=== PATIENT | female | born 1965 | race Caucasian/White ===

== ENCOUNTER 2017-06-07 12:13 | Inpatient (IN) | payer OTHER ==
[2017-06-07 12:18] VITALS: BMI 23.1
[2017-06-07] MEDS ORDERED: Sodium Chloride 0.9% 2,000 ML ONE ×2 (12:38→14:17)
--- NOTE | 2017-06-07 12:45 | C.PDOC ---
Time Seen by Provider: 06/07/17 12:30 Chief Complaint (Nursing): Back Pain History Per: Patient History/Exam Limitations: no limitations Onset/Duration Of Symptoms: Hrs (symptoms began last night ) Current Symptoms Are (Timing): Still Present Quality Of Discomfort: "Pain" Associated Symptoms: Fever, Nausea, Urinary Symptoms (urinary urgency ). denies : Vomiting, Diarrhea Recent travel outside of the [place]: Yes (Came from [place] 1 year ago) Additional History Per: Family Past Medical History Reviewed: Historical Data, Nursing Documentation, Vital Signs Vital Signs: Last Vital Signs Temp 102.7 F H 06/07/17 12:18 Pulse 111 H 06/07/17 13:40 Resp 24 06/07/17 13:40 BP 96/54 L 06/07/17 13:40 Pulse Ox 98 06/07/17 13:51 Family History: States: Unknown Family Hx - Social History Hx Alcohol Use: No Hx Substance Use: No - Immunization History Hx Tetanus Toxoid Vaccination: No Hx Influenza Vaccination: No Hx Pneumococcal Vaccination: No Review Of Systems Constitutional: Positive for: Fever. Negative for: Chills Cardiovascular: Negative for: Chest Pain, Palpitations Respiratory: Negative for: Cough, Shortness of Breath Gastrointestinal: Positive for: Nausea, Other (left flank pain ). Negative for : Vomiting, Diarrhea ED Course And Treatment - Laboratory Results Result Diagrams: 06/07/17 12:52 06/07/17 12:52 O2 Sat by Pulse Oximetry: 98 (room air ) Progress - Re-Evaluation Re-evaluation Note: 06/07/17 13:31 CODE SEPSIS ACTIVATED - Data Reviewed Data Reviewed: Lab, Diagnostic imaging, EKG, Old records - Critical Care Citical Care: Excluding Proc Time Critical Care Time: 120 minutes - Continuity of Care Discussed patient case with:: Patient Disposition - Disposition Forms: [employer] (S[place]i) - Scribe Statement The provider has reviewed the documentation as recorded by the Scribe Marika Mccullough All medical record entries made by the Scribe were at my direction and personally dictated by me. I have reviewed the chart and agree that the record accurately reflects my personal performance of the history, physical exam, medical decision making, and the department course for this patient. I have also personally directed, reviewed, and agree with the discharge instructions and disposition.
[2017-06-07 12:48] LABS: VENOUS BLOOD GAS BASE EXCESS -1.4 mmol/L (0.0-2.0); VENOUS BLOOD GAS PCO2 36 mmHg (40-60); VENOUS BLOOD PH 7.41 (7.32-7.43)
[2017-06-07 12:56] LABS: BASO % 0.4 % (0.0-2.0); EOS # 0.1 K/uL (0.0-0.7); HEMATOCRIT 32.6 % (34.0-47.0); LYMPH # 0.4 K/uL (1.0-4.3); LYMPH % 8.7 % (20.0-40.0); MEAN CELL VOLUME 80.1 fL (81.0-99.0); MEAN CORPUSCULAR HEMOGLOBIN 26.3 pg (27.0-31.0); MEAN CORPUSCULAR HGB CONC 32.8 g/dL (33.0-37.0); MEAN PLATELET VOLUME 7.7 fL (7.2-11.7); MONO % 0.7 % (0.0-10.0); PLATELET COUNT 246 K/uL (130-400); RED CELL DISTRIBUTION WIDTH 19.5 % (11.5-14.5)
[2017-06-07 13:06] LABS: INR 1.1
[2017-06-07 13:08] LABS: ALB/GLOB RATIO 1.1 (1.0-2.1); ALKALINE PHOSPHATASE 90 U/L (38-126); ALT/SGPT 42 U/L (9-52); AST/SGOT 28 U/L (14-36); BILIRUBIN,TOTAL 0.5 mg/dL (0.2-1.3); BLOOD UREA NITROGEN 12 mg/dL (7-17); CALCIUM 9.7 mg/dl (8.6-10.4); CARBON DIOXIDE 21 mmol/L (22-30); CHLORIDE 100 mmol/L (98-107); GFR AFRICAN-AMERICAN > 60; GLUCOSE,RANDOM 99 mg/dL (65-105); MAGNESIUM 1.2 mg/dL (1.6-2.3); PHOSPHOROUS 1.3 mg/dL (2.5-4.5); POTASSIUM 3.8 mmol/L (3.6-5.2); SODIUM 136 mmol/L (132-148); TOTAL PROTEIN 7.3 g/dL (6.3-8.3)
--- NOTE | 2017-06-07 13:09 | RAD ---
HISTORY: FEVER COMPARISON: No prior. FINDINGS: LUNGS: No active pulmonary disease. PLEURA: No significant pleural effusion identified, no pneumothorax apparent. CARDIOVASCULAR: Normal. OSSEOUS STRUCTURES: Minor degenerative changes both acromioclavicular joints. Minor multilevel degenerative spondylosis of the thoracic spine. VISUALIZED UPPER ABDOMEN: Normal. OTHER FINDINGS: None. IMPRESSION: No active disease.
[2017-06-07 13:13] LABS: RBC URINE 9 /hpf (0-3); URINE BACTERIA RARE (<OCC); URINE BILIRUBIN NEGATIVE (NEGATIVE); URINE BLOOD 2+ (NEGATIVE); URINE COLOR Yellow (YELLOW); URINE GLUCOSE (UA) NORMAL (Normal); URINE KETONE NEGATIVE (NEGATIVE); URINE LEUKOCYTE ESTERASE 3+ Leu/uL (Negative); URINE PROTEIN NEGATIVE (NEGATIVE); URINE UROBILINOGEN NORMAL mg/dL (0.2-1.0); WBC URINE 112 /hpf (0-5)
[2017-06-07 13:28] LABS: EOSINOPHIL 2 % (0-4); NEUTROPHIL 70 % (50-75); TOTAL CELLS COUNTED 100
[2017-06-07] MEDS ORDERED: cefTRIAXone IV 1 gm in Dextros 50 ML IVPB STA (13:29)
[2017-06-07] MEDS ORDERED: cefTRIAXone IV 1 gm in Dextros 50 ML IVPB ONE ×2 (13:36→19:32)
--- NOTE | 2017-06-07 14:05 | C.PDOC ---
History Of Present Illness 52 year old female presents to the ED with complaints of left flank pain, nausea , fever, urinary urgency beginning last night. Patient denies vomiting or diarrhea. Time Seen by Provider: 06/07/17 12:30 Chief Complaint (Nursing): Back Pain History Per: Patient History/Exam Limitations: no limitations Onset/Duration Of Symptoms: Hrs (symptoms began last night ) Current Symptoms Are (Timing): Still Present Quality Of Discomfort: "Pain" Associated Symptoms: Fever, Nausea, Urinary Symptoms (urinary urgency ). denies : Chills, Vomiting Past Medical History Reviewed: Historical Data, Nursing Documentation, Vital Signs Vital Signs: Last Vital Signs Temp 98.1 F 06/07/17 16:51 Pulse 111 H 06/07/17 17:41 Resp 22 06/07/17 17:41 BP 80/42 L 06/07/17 17:41 Pulse Ox 96 06/07/17 18:00 Family History: States: Unknown Family Hx - Social History Hx Alcohol Use: No Hx Substance Use: No - Immunization History Hx Tetanus Toxoid Vaccination: No Hx Influenza Vaccination: No Hx Pneumococcal Vaccination: No Review Of Systems Constitutional: Positive for: Fever. Negative for: Chills Cardiovascular: Negative for: Chest Pain, Palpitations Respiratory: Negative for: Cough, Shortness of Breath Gastrointestinal: Positive for: Nausea, Other (left flank pain ). Negative for : Vomiting, Abdominal Pain, Diarrhea Genitourinary: Positive for: Other (urinary urgency ). Negative for: Hematuria Physical Exam - Physical Exam Appears: Non-toxic, In Acute Distress (patient appears to be in moderate pain ) Skin: Warm, Dry Head: Atraumatic Eye(s): bilateral: Normal Inspection Oral Mucosa: Moist Neck: Supple Chest: Symmetrical, No Deformity Cardiovascular: No Murmur, Other (patient is tachycardic ) Respiratory: Normal Breath Sounds, No Rales, No Rhonchi, No Wheezing Gastrointestinal/Abdominal: Soft, No Tenderness, No Distention, No Guarding, No Rebound Back: CVA Tenderness (left CVA tenderness ) ED Course And Treatment - Laboratory Results Result Diagrams: 06/07/17 12:52 06/07/17 12:52 ECG: Interpreted By Me, Viewed By Me ECG Rhythm: Sinus Tachycardia O2 Sat by Pulse Oximetry: 96 (room air ) - CT Scan/US Abdomen and Pelvis CT with contrast Other Rad Studies (CT/US): Read By Radiologist, Radiology Report Reviewed CT/US Interpretation: FINDINGS: LOWER THORAX: No visible consolidation, pleural effusion, or pneumothorax. LIVER: Hypoattenuation of the liver compatible with hepatic steatosis. GALLBLADDER AND BILE DUCTS: Mild gallbladder wall thickening/pericholecystic edema. No calcified gallstones evident. PANCREAS: Unremarkable unenhanced appearance. Small fluid adjacent to the pancreatic tail likely perinephric rather then due to pancreatic pathology. Recommend correlation with amylase and lipase. SPLEEN: Unremarkable unenhanced appearance. ADRENALS: Unremarkable unenhanced appearance. KIDNEYS AND URETERS: 4 mm calcification at the distal left ureter at the level of the UVJ with moderate proximal hydroureter nephrosis. Left perinephric fluid/stranding. No hydronephrosis or obstructing calculus on the right. 8 mm too small to characterize right renal hypodensity; statistically likely a cyst. VASCULATURE: No aortic aneurysm. BOWEL: Stomach is nondistended. Lack of oral contrast limits evaluation for bowel pathology. Bowel loops appear within normal limits of caliber without evidence of obstruction. Diverticulosis without CT evidence of acute diverticulitis. APPENDIX: The appendix appears within normal limits of caliber. No secondary signs of acute appendicitis. PERITONEUM: No significant free fluid. No definite free air. LYMPH NODES: No bulky adenopathy identified. BLADDER: Unremarkable. REPRODUCTIVE: The uterus is present. BONES: No acute osseous abnormality is detected. . OTHER FINDINGS: None. IMPRESSION: 4 mm calcification at the distal left ureter at the level of the UVJ with moderate proximal hydroureter nephrosis. Left perinephric fluid/stranding. Small fluid adjacent to the pancreatic tail likely perinephric rather then due to pancreatic pathology. Recommend correlation with amylase and lipase. Mild gallbladder wall thickening/pericholecystic edema. No calcified gallstones evident. Right upper quadrant ultrasound may be considered if indicated. Hepatic steatosis. Diverticulosis without CT evidence of acute diverticulitis. Additional findings as above. Progress Note: VBG, EKG, UA, and blood work were ordered. Patient was give Tylenol, Toradol, Zofran, cefTRIAXone, and IV fluids. Critical Care Time - Critical Care Note Total Time (in mins): 120 (Excluding Proc Time ) Documented critical care: time excludes all time spent performing seperately billable procedures. Progress - Re-Evaluation Re-evaluation Note: 06/07/17 13:31 CODE SEPSIS ACTIVATED 06/07/17 14:12 Persistent Tachycardia, but improved from prior. Appears comfortable, pending CT. 06/07/17 16:33 REPEAT LACTATE IMPROVED. VSS PT APPEARS COMFORTABLE d/w dr Nalini [facility]ST[facility] WILL ADMIT. REQUESTING CONSULT DR Harman CLAYTON D/W DR Harman CLAYTON WILL CONSULT 06/07/17 16:57 NOTIFIED BY RN PT W HYPOTENSION. NOTED TO BE DIAPHORETIC. FS 87. SINUS TACH. S/P EVAL POSSIBLE STENT TONIGHT? REQUESTS UPDATE IN 1.5 HRS. START GENTAMYCIN 80 MG 06/07/17 17:[address] PAULINO 06/07/17 18:11 PERSIST HYPOTENSION, DR CLAYTON NOTIFIED. TO O.RDebby HENDRICKSON - Data Reviewed Data Reviewed: Lab, Diagnostic imaging, EKG, Old records - Critical Care Citical Care: Excluding Proc Time Critical Care Time: 90 minutes - Continuity of Care Discussed patient case with:: Patient, On-call PMD-pt unassigned Discussed pt. case with science consultant/specialty: Urology Disposition Counseled Patient/Family Regarding: Studies Performed, Diagnosis - Disposition Disposition: HOSPITALIZED Disposition Time: 16:35 Condition: STABLE - POA Present On Arrival: None - Clinical Impression Clinical Impression: Pyelonephritis, Ureterolithiasis - Scribe Statement The provider has reviewed the documentation as recorded by the Scribe Marika Mccullough All medical record entries made by the Rejiibe were at my direction and personally dictated by me. I have reviewed the chart and agree that the record accurately reflects my personal performance of the history, physical exam, medical decision making, and the department course for this patient. I have also personally directed, reviewed, and agree with the discharge instructions and disposition. Decision To Admit - Pt Status Changed To: Hospital Disposition Of: Inpatient - Admit Certification Admit to Inpatient:: After my assessment, the patient will require hospitalization for at least two midnights. This is because of the severity of symptoms shown, intensity of services needed, and/or the medical risk in this patient being treated as an outpatient. - InPatient: Physician Admission Certification: I certify that this patient requires 2 or more midnights of care for the following reason:: SEE NOTE - . Bed Request Type: ICU Admitting Physician: Moose Livingston Patient Diagnosis: Pyelonephritis, Ureterolithiasis
[2017-06-07] MEDS ORDERED: Iodixanol 320 MG/ML 100 ML BOTTLE IV ONE (14:52)
[2017-06-07 15:48] LABS: VENOUS BLOOD GAS BASE EXCESS -6.4 mmol/L (0.0-2.0); VENOUS BLOOD GAS PCO2 37 mmHg (40-60); VENOUS BLOOD PH 7.32 (7.32-7.43)
--- NOTE | 2017-06-07 16:27 | CT ---
PROCEDURE: CT Abdomen and Pelvis with contrast HISTORY: L FLANK PAIN, FEVER COMPARISON: None available. TECHNIQUE: Contrast dose: 100 cc Visipaque 320 Radiation dose: Total exam DLP = 468.32 MGy-cm. This CT exam was performed using one or more of the following dose reduction techniques: Automated exposure control, adjustment of the mA and/or kV according to patient size, and/or use of iterative reconstruction technique. FINDINGS: LOWER THORAX: No visible consolidation, pleural effusion, or pneumothorax. LIVER: Hypoattenuation of the liver compatible with hepatic steatosis. GALLBLADDER AND BILE DUCTS: Mild gallbladder wall thickening/pericholecystic edema. No calcified gallstones evident. PANCREAS: Unremarkable unenhanced appearance. Small fluid adjacent to the pancreatic tail likely perinephric rather then due to pancreatic pathology. Recommend correlation with amylase and lipase. SPLEEN: Unremarkable unenhanced appearance. ADRENALS: Unremarkable unenhanced appearance. KIDNEYS AND URETERS: 4 mm calcification at the distal left ureter at the level of the UVJ with moderate proximal hydroureter nephrosis. Left perinephric fluid/stranding. No hydronephrosis or obstructing calculus on the right. 8 mm too small to characterize right renal hypodensity; statistically likely a cyst. VASCULATURE: No aortic aneurysm. BOWEL: Stomach is nondistended. Lack of oral contrast limits evaluation for bowel pathology. Bowel loops appear within normal limits of caliber without evidence of obstruction. Diverticulosis without CT evidence of acute diverticulitis. APPENDIX: The appendix appears within normal limits of caliber. No secondary signs of acute appendicitis. PERITONEUM: No significant free fluid. No definite free air. LYMPH NODES: No bulky adenopathy identified. BLADDER: Unremarkable. REPRODUCTIVE: The uterus is present. BONES: No acute osseous abnormality is detected. . OTHER FINDINGS: None. IMPRESSION: 4 mm calcification at the distal left ureter at the level of the UVJ with moderate proximal hydroureter nephrosis. Left perinephric fluid/stranding. Small fluid adjacent to the pancreatic tail likely perinephric rather then due to pancreatic pathology. Recommend correlation with amylase and lipase. Mild gallbladder wall thickening/pericholecystic edema. No calcified gallstones evident. Right upper quadrant ultrasound may be considered if indicated. Hepatic steatosis. Diverticulosis without CT evidence of acute diverticulitis. Additional findings as above.
[2017-06-07] MEDS ORDERED: Sodium Chloride 0.9% 1,000 ML IV ONE (16:45)
[2017-06-07] MEDS ORDERED: Sodium Chloride 0.9% 1,000 ML ONE (17:15)
[2017-06-07 17:54] LABS: VENOUS BLOOD GAS BASE EXCESS -7.7 mmol/L (0.0-2.0); VENOUS BLOOD GAS PCO2 34 mmHg (40-60); VENOUS BLOOD PH 7.32 (7.32-7.43)
[2017-06-07] MEDS ORDERED: Magnesium Sulfate 1 gm in D5W 1 GM/100 ML BAG IVPB ONE ×3 (18:24→20:58)
[2017-06-07] MEDS ORDERED: DOPamine 400mg/250ml D5W 400 MG/250 ML BAG IV ONE (18:32)
[2017-06-07] MEDS: DOPamine 400mg/250ml D5W 400 MG/250 ML BAG IV PRN (18:39)
[2017-06-07 18:40] LABS: AMYLASE 48 U/L (30-110)
--- NOTE | 2017-06-07 19:26 | CP.PCM.CON ---
History of Present Illness - History of Present Illness History of Present Illness: Attending: Moose Livingston MD Reason for Consult: Critical care Management: Chief complaint: Left flank pain The patient was seen and examined in the ICU before being taken to the OR HPI: 52 years old female with no significant past medical hx who comes with one day of sudden unset of Severe, Pulsating, continuous left flank pain, radiating anteriorly and to the left groin, Increasing in intensity with movement and only with mild decrease in intensity in the ED after medication. The pain was associated with dysuria, urinary urgency incontinence, nausea, Chills and subjective fever with mild frontal headache. No vomiting, diarrhea, SOB, Chest Pain PMH: No Chronic Diseases PSH: Denies SH: Denies Smoking Cigarettres, No Alcohol, No illegal drug use; Live with family FH: No hereditary diseases Allergies: NKDA Medication: Denies Review of Systems - Constitutional Constitutional: Chills, Fever, Headache. absent: Anorexia, Fatigue, Lethargy - EENT Eyes: Requires Corrective Lenses. absent: Diplopia, Floaters, Photophobia, Sees Flashes Ears: absent: Decreased Hearing, Ear Discharge, Ear Pain, Tinnitus Nose/Mouth/Throat: absent: Epistaxis, Nasal Congestion, Nasal Discharge, Sinus Pain, Sinus Pressure - Cardiovascular Cardiovascular: absent: Chest Pain, Dyspnea, Edema, Lightheadedness, Palpitations - Respiratory Respiratory: absent: Cough, Dyspnea, Wheezing, Stridor, Chest Congestion - Gastrointestinal Gastrointestinal: Nausea. absent: Constipation, Diarrhea, Vomiting Additional comments: Pain to the LLQ - Genitourinary Genitourinary: Dysuria, Flank Pain, Urinary Urgency. absent: Hematuria, Pyuria , Urinary Frequency - Musculoskeletal Musculoskeletal: Arthralgias, Back Pain. absent: Muscle Weakness, Numbness Additional comments: Right lower extremity pain - Integumentary Integumentary: absent: Pruritus, Rash, Skin Ulcer, Sores, Striae, Swelling - Neurological Neurological: Headaches. absent: Confusion, Dizziness, Focal Weakness, Paresthesias, Weakness - Psychiatric Psychiatric: absent: Anxiety, Depression, Panic Attacks - Endocrine Endocrine: absent: Palpitations, Polydipsia, Polyphagia, Polyuria - Hematologic/Lymphatic Hematologic: absent: Easy Bleeding, Easy Bruising Past Patient History - Past Medical History & Family History Past Medical History?: No - Past Social History Smoking Status: Never Smoked Chewing Tobacco Use: No Cigar Use: No Alcohol: None Drugs: Denies Home Situation {Lives}: With Family - CARDIAC Hx Cardiac Disorders: No - PULMONARY Hx Respiratory Disorders: No - NEUROLOGICAL Hx Neurological Disorder: No - HEENT Hx HEENT Problems: No - RENAL Hx Chronic Kidney Disease: No - ENDOCRINE/METABOLIC Hx Endocrine Disorders: No - HEMATOLOGICAL/ONCOLOGICAL Hx Blood Disorders: No - INTEGUMENTARY Hx Dermatological Problems: No - MUSCULOSKELETAL/RHEUMATOLOGICAL Hx Musculoskeletal Disorders: No - GASTROINTESTINAL Hx Gastrointestinal Disorders: No - GENITOURINARY/GYNECOLOGICAL Hx Genitourinary Disorders: No - PSYCHIATRIC Hx Psychophysiologic Disorder: No Hx Substance Use: No - SURGICAL HISTORY Hx Surgeries: No Other/Comment: PT DENIES - ANESTHESIA Hx Anesthesia: No Meds Allergies/Adverse Reactions: Allergies Allergy/AdvReac Type Severity Reaction Status Date / Time No Known Allergies Allergy Verified 06/07/17 12:17 - Medications Medications: Current Medications Dopamine HCl/Dextrose (Dopamine 400mg/250ml D5w) 400 mg in 250 mls @ 10.313 mls /hr IV .Q24H PRN; Protocol; 5 MCG/KG/MIN PRN Reason: TITRATE PER MD ORDER Last Admin: 06/07/17 18:39 Dose: 5 mcg/kg/min, 10.313 mls/hr Physical Exam - Constitutional Appears: No Acute Distress - Head Exam Head Exam: ATRAUMATIC, NORMAL INSPECTION, NORMOCEPHALIC - Eye Exam Eye Exam: EOMI, Normal appearance Pupil Exam: NORMAL ACCOMODATION, PERRL - ENT Exam ENT Exam: Mucous Membranes Moist, Normal Exam, Normal External Ear Exam, Normal Oropharynx Additional comments: Upper and lower dentures. Mucous membrane pale. - Neck Exam Neck exam: Positive for: Full Rom, Normal Inspection. Negative for: Lymphadenopathy, Tenderness - Respiratory Exam Respiratory Exam: Clear to Auscultation Bilateral, NORMAL BREATHING PATTERN. absent: Rales, Rhonchi, Wheezes - Cardiovascular Exam Cardiovascular Exam: REGULAR RHYTHM, RRR. absent: Gallop, JVD - GI/Abdominal Exam GI & Abdominal Exam: Normal Bowel Sounds, Soft. absent: Mass, Organomegaly Additional comments: Pain to the LLQ on palpation, no guarding, no rebound. - Rectal Exam Rectal Exam: Deferred - Extremities Exam Extremities exam: Positive for: full ROM, normal inspection. Negative for: calf tenderness, joint swelling, pedal edema - Back Exam Back exam: CVA tenderness (L), NORMAL INSPECTION. absent: CVA tenderness (R) - Neurological Exam Neurological exam: Alert, CN II-XII Intact, Oriented x3, Reflexes Normal - Psychiatric Exam Psychiatric exam: Normal Affect, Normal Mood - Skin Skin Exam: Dry, Intact, Normal Color, Warm Results - Vital Signs Recent Vital Signs: Last Vital Signs Temp 98 F 06/07/17 18:18 Pulse 118 H 06/07/17 18:47 Resp 22 06/07/17 18:47 BP 90/51 L 06/07/17 18:47 Pulse Ox 97 06/07/17 18:47 - Labs Result Diagrams: 06/07/17 12:52 06/07/17 12:52 Labs: Laboratory Results - last 24 hr 06/07/17 06/07/17 06/07/17 16:48 17:45 18:28 pO2 52 VBG pH 7.32 VBG pCO2 34 L VBG HCO3 18.5 VBG Total CO2 18.5 L VBG O2 Sat (Calc) 89.2 H VBG Base Excess -7.7 L VBG Potassium 2.9 L Sodium 143.0 Chloride 113.0 H Glucose 86 Lactate 1.7 POC Glucose (mg/dL) 87 Amylase Lipase Venous Blood Potassium 2.9 L Blood Type O POSITIVE Antibody Screen Negative 06/07/17 18:31 pO2 VBG pH VBG pCO2 VBG HCO3 VBG Total CO2 VBG O2 Sat (Calc) VBG Base Excess VBG Potassium Sodium Chloride Glucose Lactate POC Glucose (mg/dL) Amylase 48 Lipase 45 Venous Blood Potassium Blood Type Antibody Screen - Imaging and Cardiology CT scan - abdomen Status: Report reviewed by me Additional comment: FINDINGS: LOWER THORAX: No visible consolidation, pleural effusion, or pneumothorax. LIVER: Hypoattenuation of the liver compatible with hepatic steatosis. GALLBLADDER AND BILE DUCTS: Mild gallbladder wall thickening/pericholecystic edema. No calcified gallstones evident. PANCREAS: Unremarkable unenhanced appearance. Small fluid adjacent to the pancreatic tail likely perinephric rather then due to pancreatic pathology. Recommend correlation with amylase and lipase. SPLEEN: Unremarkable unenhanced appearance. ADRENALS: Unremarkable unenhanced appearance. KIDNEYS AND URETERS: 4 mm calcification at the distal left ureter at the level of the UVJ with moderate proximal hydroureter nephrosis. Left perinephric fluid/stranding. No hydronephrosis or obstructing calculus on the right. 8 mm too small to characterize right renal hypodensity; statistically likely a cyst. VASCULATURE: No aortic aneurysm. BOWEL: Stomach is nondistended. Lack of oral contrast limits evaluation for bowel pathology. Bowel loops appear within normal limits of caliber without evidence of obstruction. Diverticulosis without CT evidence of acute diverticulitis. APPENDIX: The appendix appears within normal limits of caliber. No secondary signs of acute appendicitis. PERITONEUM: No significant free fluid. No definite free air. LYMPH NODES: No bulky adenopathy identified. BLADDER: Unremarkable. REPRODUCTIVE: The uterus is present. BONES: No acute osseous abnormality is detected. . OTHER FINDINGS: None. IMPRESSION: 4 mm calcification at the distal left ureter at the level of the UVJ with moderate proximal hydroureter nephrosis. Left perinephric fluid/ stranding. Small fluid adjacent to the pancreatic tail likely perinephric rather then due to pancreatic pathology. Recommend correlation with amylase and lipase. Mild gallbladder wall thickening/pericholecystic edema. No calcified gallstones evident. Right upper quadrant ultrasound may be considered if indicated. Hepatic steatosis. Diverticulosis without CT evidence of acute diverticulitis. Additional findings as above. Chest x-ray Status: Image reviewed by me, Report reviewed by me Additional comment: No infiltrates Assessment & Plan - Assessment and Plan (Free Text) Assessment: #. Pyelonephritis #. Ureterolithiasis #. Septic Shock #. Anemia #. Leukopenia Plan: 52 years old female with no significant past medical hx who comes with one day of sudden unset of Severe, Pulsating, continuous left flank pain, radiating anteriorly and to the left groin, associated with dysuria, urinary urgency incontinence, nausea, Chills and subjective fever. #. Pyelonephritis - Consult Dr Marino ID - Rocephin and Gentamicin given in ED. Patient continued on Meropenem - IV Fluids - Pain management - Follow blood culture - Follow Urine culture #. Ureterolithiasis with Hydroureter - Consult Urology Dr. Hines - Pain management #.Septic Shock - ID on consult - Patient received 4.5 liters of NS in the ED - Continue IV Fluid 150mls/hr - Continue Antibiotics - Dopamine IV Titrate to MAP >65 #. Anemia - Iron Panel - Follow HB #. Electrolyte Imbalance with Hypomagnesemia and Hypophosphatemia - Magnesium given - Potassium Phosphate IVPB - Follow Magnesium and Phosphorus levels #. Stress ulcer Prophylaxis with Pantoprazole #.DVT Prophylaxis with SCD - Date & Time Date: 06/07/17 Time: 19:26
--- NOTE | 2017-06-07 19:30 | CP.PCM.HP ---
History of Present Illness - History of Present Illness History of Present Illness: CC: abdominal pain with fevers HPI: 52 year old female with past medical history significant for nephrolithiasis presents with complaints of fevers and suprapubic tenderness which started approximately 6:45 AM this morning. Patient states that her symptoms were not getting better and thus she came in to seek further care. She did not attempt anything for relief. She states that movements exacerbated her symptoms. At this time, she admits to fevers, nausea, suprapubic and flank pain. She denies vomiting, chest pain, palpitations or dyspnea at this time. PMHx- Nephrolithiasis 15 years prior which resolved on its own PSHx- deneis Fam Hx- Grandmother had a history of UTI Meds- Unsure whether patient takes vitamins or supplements but otherwise denies taking medications Social Hx- denies Allergies- NKDA PMD- Does not follow with a medical doctor; patient recently emigrated from [facility] one year prior. In the ED: UA positive for UTI. Code Sepsis called for Fever, Tachycardia. Later , patient's blood pressure became more hypotensive despite multiple fluid boluses. Cultures were drawn. Patient was administered Ceftriaxone and Gentamicin in the ED. Patient's temperature resolved, however patient remained hypotensive and tachycardic. ICU eval warranted and patient was admitted for critical care monitoring. Present on Admission - Present on Admission Any Indicators Present on Admission: No Review of Systems - Review of Systems Systems not reviewed;Unavailable: Unstable Vital Signs, Language Barrier - Constitutional Constitutional: Fever - EENT Eyes: absent: Blurred Vision, Change in Vision Ears: absent: Decreased Hearing, Ear Discharge Nose/Mouth/Throat: absent: Nasal Discharge - Cardiovascular Cardiovascular: absent: Chest Pain, Chest Pain at Rest - Respiratory Respiratory: absent: Dyspnea, Dyspnea on Exertion - Gastrointestinal Gastrointestinal: Abdominal Pain, Nausea. absent: Loose Stools, Vomiting - Genitourinary Genitourinary: Dysuria, Flank Pain, Urinary Urgency. absent: Hematuria - Musculoskeletal Musculoskeletal: Back Pain - Integumentary Integumentary: absent: Change in Hair, Wounds - Neurological Neurological: absent: Abnormal Gait, Abnormal Hearing - Psychiatric Psychiatric: absent: Anxiety, Behavioral Changes - Hematologic/Lymphatic Hematologic: absent: Easy Bleeding, Easy Bruising Past Patient History - Past Social History Smoking Status: Never Smoked Alcohol: None Drugs: Denies Home Situation {Lives}: With Family - PSYCHIATRIC Hx Substance Use: No - SURGICAL HISTORY Hx Surgeries: No Other/Comment: PT DENIES - ANESTHESIA Hx Anesthesia: No Meds Allergies/Adverse Reactions: Allergies Allergy/AdvReac Type Severity Reaction Status Date / Time No Known Allergies Allergy Verified 06/07/17 12:17 Physical Exam - Constitutional Additional comments: clinically ill appearing, cool extremities - Head Exam Head Exam: ATRAUMATIC, NORMAL INSPECTION, NORMOCEPHALIC - Eye Exam Eye Exam: EOMI, Normal appearance, PERRL - ENT Exam ENT Exam: Mucous Membranes Moist - Neck Exam Neck exam: Positive for: Full Rom - Respiratory Exam Respiratory Exam: NORMAL BREATHING PATTERN. absent: Wheezes - Cardiovascular Exam Cardiovascular Exam: +S1, +S2. absent: Systolic Murmur - GI/Abdominal Exam GI & Abdominal Exam: Normal Bowel Sounds, Soft, Tenderness (suprapubic). absent : Distended, Firm, Guarding - Extremities Exam Extremities exam: Positive for: full ROM, normal capillary refill, pedal pulses present. Negative for: pedal edema, tenderness - Back Exam Back exam: CVA tenderness (L), CVA tenderness (R) (Right CVA tenderness greater than left), FULL ROM - Neurological Exam Neurological exam: Alert, Oriented x3 - Psychiatric Exam Psychiatric exam: Normal Affect, Normal Mood - Skin Skin Exam: Dry, Pallor, Warm (warm abdomen, cool extremities) Results - Vital Signs Recent Vital Signs: Last Vital Signs Temp 98 F 06/07/17 18:18 Pulse 118 H 06/07/17 18:47 Resp 22 06/07/17 18:47 BP 90/51 L 06/07/17 18:47 Pulse Ox 97 06/07/17 18:47 - Labs Result Diagrams: 06/07/17 12:52 06/07/17 12:52 Labs: Laboratory Results - last 24 hr 06/07/17 06/07/17 06/07/17 16:48 17:45 18:28 pO2 52 VBG pH 7.32 VBG pCO2 34 L VBG HCO3 18.5 VBG Total CO2 18.5 L VBG O2 Sat (Calc) 89.2 H VBG Base Excess -7.7 L VBG Potassium 2.9 L Sodium 143.0 Chloride 113.0 H Glucose 86 Lactate 1.7 POC Glucose (mg/dL) 87 Amylase Lipase Venous Blood Potassium 2.9 L Blood Type O POSITIVE Antibody Screen Negative 06/07/17 18:31 pO2 VBG pH VBG pCO2 VBG HCO3 VBG Total CO2 VBG O2 Sat (Calc) VBG Base Excess VBG Potassium Sodium Chloride Glucose Lactate POC Glucose (mg/dL) Amylase 48 Lipase 45 Venous Blood Potassium Blood Type Antibody Screen Assessment & Plan - Assessment and Plan (Free Text) Assessment: Septic Shock secondary to UTI/Pyelonephritis Patient with initial fever of 102.8, tachycardic, hypotensive not responding to fluids despite nearly 5 L bolus. Last BP check at 18:00 with systolic in the low 80s. Admit to ICU for critical care monitoring in light of persistently low blood pressures. Consult to ID Dr. Marino- Recommendations to begin Meropenem ( stat dose now and then Q8H afterwards) Will begin Vancomcyin afterwards. Check vanc troughs once started. F/U ID recommendations UA positive for UTI F/U Blood and urine cultures F/U CBC, CMP, Mag, Phos, Thyroid levels Left Ureter Nephrolithiasis F/U CT results noted: 4 mm calcification at the distal left ureter at the level of the UVJ with moderate proximal hydroureter nephrosis. Left perinephric fluid/ stranding. No hydronephrosis or obstructing calculus on the right. 8 mm too small to characterize right renal hypodensity; statistically likely a cyst. Consult to Dr. Elly Hines F/U recommendations Gall Bladder Wall thickening F/U RUQ U/S Fluid around Pancreatic tail noted on CT imaging Liapse and Amylase order with results within normal limits. These findings may be perinephric rather then due to pancreatic pathology Questionable 8 mm renal cyst F/U renal U/S at 6 months time This should be relayed to patient upon discharge as well for follow up care. Electrolyte imbalance Low magnesium and low phosphorus Repleted Cont to monitor May be due to septic shock presentation Prophylactic Measure PPI 40 mg PO daily Heparin SC 5,000 units Q12 SCDs
--- NOTE | 2017-06-07 19:40 | PCM.SEPTIC ---
Sepsis Progress Note - Reassessment Type Date of Evaluation: 06/07/17 Time of Evaluation: 19:30 Reassessment Type: Non-invasive reassessment - Non Invasive Reassessment Were the most recent vital sign reviewed: Yes Vital Sign (Latest): Temp Pulse Resp BP Pulse Ox 98 F 118 H 22 90/51 L 97 06/07/17 18:18 06/07/17 18:47 06/07/17 18:47 06/07/17 18:47 06/07/17 18:47 Cardiovascular: Yes: Chest Non Tender, Tachycardia. No: Regular Rate, Rhythm, Edema, Gallop, JVD, Murmur, Bradycardia, Ectopy, Friction Rub, Irregularly Irregular Respiratory: Yes: Normal Breath Sounds. No: Accessory Muscle Use, Crackles, Rales, Rhonchi, Stridor, Wheezing, Respiratory Distress Capillary Refill: Normal (Less than 2 sec) Pulses: Normal Radial, Normal Dorsalis Pedis, Normal Posterior Tibialis Skin: Normal Color, Warm, Dry, Pale - Invasive Reassessment (complete 2 of 4) Was a Central Venous Pressure Measurement obtained within 6 Hours after the presentation of septic shock: No Was a central venous oxygen measurement obtained within 6 hours after the presentation of septic shock: No Was a bedside cardiovascular ultrasound performed within 6 hours after the presentation of septic shock: No Was a passive leg raise performed or was a fluid challenge performed within 6 hrs of the initial fluid bolus: Yes Fluid Challenge performed: Yes
[2017-06-07] MEDS: Iohexol 240 (50 ml) ONE ×2 (19:45→20:18)
[2017-06-07] MEDS ORDERED: Lactated Ringer's 1,000 ML IV ONE (19:55)
[2017-06-07] MEDS ORDERED: Ketamine 50 mg/ml Inj (10 ml) ONE (19:55)
[2017-06-07] MEDS ORDERED: Midazolam 2 MG/2 ML VIAL ONE (19:56)
[2017-06-07] MEDS ORDERED: Propofol 10 mg/ml Inj (20 ML) ONE (20:11)
[2017-06-07] MEDS: Meropenem 1 GM in Sodium Chloride 0.9% 100 ML IVPB SCH (20:45)
[2017-06-07] MEDS ORDERED: Potassium Phosphate 15 MMOLE in Sodium Chloride 0.9% 250 ML IVPB ONE (21:00)
[2017-06-07] MEDS: Sodium Chloride 0.9% 1,000 ML IV SCH (21:17)
--- NOTE | 2017-06-07 23:27 | US ---
EXAM: US Abdomen Complete CLINICAL HISTORY: 52 years old, female; Abnormal findings; Abnormal radiologic finding of the abdomen; Radiologic exam and body structure: CT; Prior surgery; Surgery date: Post-operative (0-2 days); Surgery type: Renal stent; Additional info: Mild gb wall thickening with pericholecystic edema TECHNIQUE: Real-time ultrasound of the abdomen (complete) with image documentation. COMPARISON: No relevant prior studies available. FINDINGS: Liver: Increased echogenicity within the liver, which measures 16.2 cm in longitudinal dimension. No intrahepatic bile duct dilation. Gallbladder: No acute findings. No gallstones. Common bile duct: No stones. No dilation, measuring 3.8 mm. Pancreas: Visualization of the pancreas is limited by overlying bowel gas. Right kidney: No acute findings. No hydronephrosis. Subcentimeter anechoic focus within the upper to mid pole of the right kidney, statistically a cyst. Left Kidney: Unremarkable in echogenicity and size measuring 12.5 x 6.2 x 5.9 cm. Fullness of the left renal pelvis is detected, without jessica hydronephrosis. Spleen: Unremarkable in echogenicity and size, measuring 10.6 cm in longitudinal dimension. Aorta: Unremarkable. Inferior vena cava: patent. IMPRESSION: Trace left-sided perinephric fluid. Prominence of the left renal pelvis without jessica hydronephrosis demonstrated on the submitted images. Fatty infiltration of the borderline enlarged liver. Simple subcentimeter cyst within the right kidney. Borderline splenic enlargement. Limited evaluation of the pancreas, secondary to overlying bowel gas. Otherwise, unremarkable sonographic evaluation of the abdomen, as detailed above.
[2017-06-08] MEDS: Meropenem 1 GM in Sodium Chloride 0.9% 100 ML IVPB SCH ×3 (03:05→20:50)
[2017-06-08] MEDS: Sodium Chloride 0.9% 1,000 ML IV SCH ×3 (04:36→19:38)
[2017-06-08 07:23] LABS: CHLORIDE 115 mmol/L (98-107); POTASSIUM 4.2 mmol/L (3.6-5.2); SODIUM 141 mmol/L (132-148)
[2017-06-08 07:25] LABS: ALKALINE PHOSPHATASE 78 U/L (38-126); AST/SGOT 46 U/L (14-36); BILIRUBIN,TOTAL 0.5 mg/dL (0.2-1.3); CARBON DIOXIDE 19 mmol/L (22-30); GFR AFRICAN-AMERICAN > 60; TOTAL PROTEIN 6.1 g/dL (6.3-8.3)
[2017-06-08 07:26] LABS: ALT/SGPT 65 U/L (9-52); BLOOD UREA NITROGEN 9 mg/dL (7-17); CALCIUM 7.8 mg/dl (8.6-10.4); GLUCOSE,RANDOM 107 mg/dL (65-105); MAGNESIUM 1.8 mg/dL (1.6-2.3); PHOSPHOROUS 3.4 mg/dL (2.5-4.5)
[2017-06-08 07:53] LABS: THYROID STIMULATING HORMONE 0.29 mIU/L (0.46-4.68)
[2017-06-08] MEDS: DOPamine 400mg/250ml D5W 400 MG/250 ML BAG IV PRN (08:00)
--- NOTE | 2017-06-08 08:14 | PCM.URO ---
Urology Progress Note - Objective Lab Results Last 24 Hours: Laboratory Results - last 24 hr 06/07/17 06/07/17 06/07/17 16:48 17:45 18:28 pO2 52 VBG pH 7.32 VBG pCO2 34 L VBG HCO3 18.5 VBG Total CO2 18.5 L VBG O2 Sat (Calc) 89.2 H VBG Base Excess -7.7 L VBG Potassium 2.9 L Sodium 143.0 Chloride 113.0 H Glucose 86 Lactate 1.7 Potassium Carbon Dioxide Anion Gap BUN Creatinine Est GFR ( Amer) Est GFR (Non-Af Amer) POC Glucose (mg/dL) 87 Random Glucose Calcium Phosphorus Magnesium Total Bilirubin AST ALT Alkaline Phosphatase Total Protein Albumin Globulin Albumin/Globulin Ratio Amylase Lipase Free T4 TSH 3rd Generation Venous Blood Potassium 2.9 L Blood Type O POSITIVE Antibody Screen Negative 06/07/17 06/08/17 06/08/17 18:31 06:42 06:42 pO2 VBG pH VBG pCO2 VBG HCO3 VBG Total CO2 VBG O2 Sat (Calc) VBG Base Excess VBG Potassium Sodium 141 Chloride 115 H Glucose Lactate Potassium 4.2 Carbon Dioxide 19 L Anion Gap 11 BUN 9 Creatinine 0.7 Est GFR ( Amer) > 60 Est GFR (Non-Af Amer) > 60 POC Glucose (mg/dL) Random Glucose 107 H Calcium 7.8 L Phosphorus 3.4 Magnesium 1.8 Total Bilirubin 0.5 AST 46 H D ALT 65 H D Alkaline Phosphatase 78 Total Protein 6.1 L Albumin 3.1 L Globulin 3.0 Albumin/Globulin Ratio 1.0 Amylase 48 Lipase 45 Free T4 1.14 TSH 3rd Generation 0.29 L Venous Blood Potassium Blood Type Antibody Screen Intake & Output: Intake & Output 06/07/17 06/08/17 06/08/17 18:59 06:59 18:59 Intake Total 1000 2219.9 405 Output Total 2250 75 Balance 1000 -30.1 330 Weight 147 lb 4.3 oz Intake: IV 1000 34 Intake, IV Amount 2185.9 165 RFA 1450 150 Right Antecubital 227.7 15 Right Forearm 508.2 Oral 0 240 Output: Urine 2250 75 Urethral (Moody) 2250 75 Other: Voiding Method Bedpan Vital Signs: Vital Signs - 24 hr 06/07/17 06/07/17 06/07/17 16:51 17:06 17:23 Temperature 98.1 F Pulse Rate 115 H 111 H 108 H Pulse Rate [ Bilateral Radial] Respiratory 20 24 Rate Blood Pressure 78/47 L 79/39 L 81/46 L O2 Sat by Pulse 99 99 98 Oximetry 06/07/17 06/07/17 06/07/17 17:41 18:11 18:18 Temperature 98 F Pulse Rate 111 H 112 H Pulse Rate [ Bilateral Radial] Respiratory 22 22 Rate Blood Pressure 80/42 L 82/45 L O2 Sat by Pulse 97 96 98 Oximetry 06/07/17 06/07/17 06/07/17 18:38 18:39 18:47 Temperature Pulse Rate 113 H 107 H 118 H Pulse Rate [ Bilateral Radial] Respiratory 20 18 22 Rate Blood Pressure 78/46 L 78/45 L 90/51 L O2 Sat by Pulse 98 100 97 Oximetry 06/07/17 06/07/17 06/07/17 19:08 19:21 19:30 Temperature 98 F Pulse Rate 117 H 115 H 115 H Pulse Rate [ Bilateral Radial] Respiratory 32 H 22 32 H Rate Blood Pressure 91/49 L 89/48 L 96/51 L O2 Sat by Pulse 97 96 98 Oximetry 06/07/17 06/07/17 06/07/17 19:34 20:43 20:45 Temperature 97.8 F Pulse Rate 106 H 105 H Pulse Rate [ 106 H Bilateral Radial] Respiratory 27 H 22 Rate Blood Pressure 101/53 L 101/53 L O2 Sat by Pulse 94 L 94 L Oximetry 06/07/17 06/07/17 06/07/17 20:58 21:00 21:03 Temperature Pulse Rate 105 H 105 H 109 H Pulse Rate [ Bilateral Radial] Respiratory 26 H 25 H 28 H Rate Blood Pressure 69/36 L 69/36 L 80/39 L O2 Sat by Pulse 95 95 95 Oximetry 06/07/17 06/07/17 06/07/17 21:12 21:15 21:27 Temperature Pulse Rate 109 H 109 H 108 H Pulse Rate [ Bilateral Radial] Respiratory 17 22 23 Rate Blood Pressure 92/45 L 92/45 L 97/51 L O2 Sat by Pulse 96 95 95 Oximetry 06/07/17 06/07/17 06/07/17 21:30 21:40 21:42 Temperature 97.9 F Pulse Rate 108 H 107 H Pulse Rate [ Bilateral Radial] Respiratory 24 26 H Rate Blood Pressure 97/51 L 102/49 L O2 Sat by Pulse 94 L 95 Oximetry 06/07/17 06/07/17 06/07/17 21:45 21:57 22:00 Temperature Pulse Rate 106 H 108 H 104 H Pulse Rate [ Bilateral Radial] Respiratory 20 27 H 25 H Rate Blood Pressure 102/49 L 103/45 L 103/45 L O2 Sat by Pulse 94 L 94 L 94 L Oximetry 06/07/17 06/07/17 06/07/17 22:17 22:32 23:00 Temperature Pulse Rate 105 H 104 H Pulse Rate [ Bilateral Radial] Respiratory 25 H 28 H 23 Rate Blood Pressure 95/46 L 100/46 L 100/46 L O2 Sat by Pulse 94 L 95 96 Oximetry 06/08/17 06/08/17 06/08/17 00:00 01:00 02:00 Temperature 97.8 F Pulse Rate 109 H 104 H 94 H Pulse Rate [ Bilateral Radial] Respiratory 23 21 22 Rate Blood Pressure 100/53 L 95/49 L 104/49 L O2 Sat by Pulse 95 95 94 L Oximetry 06/08/17 04:00 Temperature 97.8 F Pulse Rate 97 H Pulse Rate [ Bilateral Radial] Respiratory 21 Rate Blood Pressure 113/59 L O2 Sat by Pulse 95 Oximetry
--- NOTE | 2017-06-08 08:40 | CP.CCUPN ---
<Malcolm Bethea Geno - Last Filed: 06/08/17 12:02> CCU Subjective - Physician Review Subjective (Free Text): Patient seen and examined at bedside with daughter by her side. No acute distress, still c/o of left flank and left groin pain. Tolerating diet. Snowden in place with normal urinary output. Denies fever, nausea, chest pain, shortness of breath, headache, diarrhea, constipation. 06/08/17 12:03 CCU Objective - Vital Signs / Intake & Output Vital Signs (Last 4 hours): Vital Signs Pulse Resp BP Pulse Ox 06/08/17 08:00 92 H 24 95/51 L 96 06/08/17 06:00 84 20 96/45 L 95 06/08/17 05:00 91 H 109/54 L 95 Intake and Output (Last 8hrs): Intake & Output 06/07/17 06/08/17 06/08/17 22:59 06:59 14:59 Intake Total 1504.9 1715.0 621 Output Total 475 1775 75 Balance 1029.9 -60.0 546 Weight 147 lb 4.301 oz 147 lb 4.3 oz Intake: IV 1034 216 Intake, IV Amount 470.9 1715.0 165 RFA 250 1200 150 Right Antecubital 67.7 160 15 Right Forearm 153.2 355.0 Oral 0 240 Output: Urine 475 1775 75 Urethral (Snowden) 475 1775 75 Other: Voiding Method Bedpan - Physical Exam Physical Exam Limitations: Negative for: Altered Mental Status Head: Positive for: Atraumatic Pupils: Positive for: PERRL Extroacular Muscles: Positive for: EOMI Mouth: Positive for: Moist Mucous Membranes, Other (Upper and lower dentures) Neck: Positive for: Normal Range of Motion Respiratory/Chest: Positive for: Clear to Auscultation. Negative for: Wheezes, Rales Cardiovascular: Positive for: Regular Rate and Rhythm, Normal S1, S2. Negative for: Murmurs Abdomen: Positive for: Tenderness (Pain to the LLQ on palpation, no guarding, no rebound.), Normal Bowel Sounds. Negative for: Distention Upper Extremity: Positive for: Normal Inspection. Negative for: Edema Lower Extremity: Positive for: Normal Inspection. Negative for: Edema Neurological: Positive for: Speech Normal Skin: Positive for: Warm, Dry, Normal Color. Negative for: Rashes Psychiatric: Positive for: Alert, Oriented x 3 - Medications Active Medications: Active Medications Generic Name Dose Route Start Last Admin Trade Name Freq PRN Reason Stop Dose Admin Heparin Sodium (Porcine) 5,000 units 06/07/17 22:00 06/07/17 21:10 Heparin SC 5,000 units Q12 ANANT Administration Dopamine HCl/Dextrose 400 mg in 250 mls @ 10.313 mls/hr 06/07/17 18:25 08:00 Dopamine 400mg/250ml D5w IV 7.27 mcg/kg/min .Q24H PRN 15 mls/hr TITRATE PER MD ORDER Administration Protocol 5 MCG/KG/MIN Meropenem 1 gm/ Sodium 100 mls @ 200 mls/hr 06/07/17 20:00 06/08/17 03:05 Chloride IVPB 200 mls/hr Q8H ANANT Administration Sodium Chloride 1,000 mls @ 150 mls/hr 06/07/17 21:15 06/08/17 04:36 Sodium Chloride 0.9% IV 150 mls/hr .Q6H40M ANANT Administration Influenza Virus Vaccine 45 mcg 06/09/17 10:00 Afluria IM 06/09/17 10:01 .ONCE ONE Morphine Sulfate 2 mg 06/08/17 00:27 06/08/17 01:00 Morphine IVP 2 mg Q4 PRN Administration Pain, moderate (4-7) Morphine Sulfate 4 mg 06/08/17 00:27 Morphine IVP Q4 PRN Pain, severe (8-10) Pantoprazole Sodium 40 mg 06/08/17 10:00 Protonix Ec Tab PO DAILY [facility] Pneumococcal Polyvalent Vaccine 0.5 ml 06/09/17 10:00 Pneumovax 23 Vaccine IM 06/09/17 10:01 .ONCE ONE - Patient Studies Lab Studies: Lab Studies 06/08/17 06/08/17 06/07/17 Range/Units 06:42 06:42 18:31 pO2 (30-55) mm/Hg VBG pH (7.32-7.43) VBG pCO2 (40-60) mmHg VBG HCO3 mmol/L VBG Total CO2 (22-28) mmol/L VBG O2 Sat (Calc) (40-65) % VBG Base Excess (0.0-2.0) mmol/L VBG Potassium (3.6-5.2) mmol/L Sodium 141 (132-148) mmol/l Chloride 115 H (98-107) mmol/L Glucose (65-105) mg/dl Lactate (0.7-2.1) mmol/L Potassium 4.2 (3.6-5.2) mmol/L Carbon Dioxide 19 L (22-30) mmol/L Anion Gap 11 (10-20) BUN 9 (7-17) mg/dL Creatinine 0.7 (0.7-1.2) MG/DL Est GFR ( Amer) > 60 Est GFR (Non-Af Amer) > 60 POC Glucose (mg/dL) (65-110) mg/dL Random Glucose 107 H (65-105) mg/dL Calcium 7.8 L (8.6-10.4) mg/dl Phosphorus 3.4 (2.5-4.5) mg/dL Magnesium 1.8 (1.6-2.3) mg/dL Total Bilirubin 0.5 (0.2-1.3) mg/dL AST 46 H D (14-36) U/L ALT 65 H D (9-52) U/L Alkaline Phosphatase 78 (38-126) U/L Total Protein 6.1 L (6.3-8.3) g/dL Albumin 3.1 L (3.5-5.0) g/dL Globulin 3.0 (2.2-3.9) gm/dL Albumin/Globulin Ratio 1.0 (1.0-2.1) Amylase 48 (30-110) U/L Lipase 45 (23-300) U/L Free T4 1.14 (0.78-2.19) ng/dL TSH 3rd Generation 0.29 L (0.46-4.68) mIU/L Venous Blood Potassium (3.6-5.2) mmol/L Blood Type Antibody Screen 06/07/17 06/07/17 06/07/17 Range/Units 18:28 17:45 16:48 pO2 52 (30-55) mm/Hg VBG pH 7.32 (7.32-7.43) VBG pCO2 34 L (40-60) mmHg VBG HCO3 18.5 mmol/L VBG Total CO2 18.5 L (22-28) mmol/L VBG O2 Sat (Calc) 89.2 H (40-65) % VBG Base Excess -7.7 L (0.0-2.0) mmol/L VBG Potassium 2.9 L (3.6-5.2) mmol/L Sodium 143.0 (132-148) mmol/l Chloride 113.0 H (98-107) mmol/L Glucose 86 (65-105) mg/dl Lactate 1.7 (0.7-2.1) mmol/L Potassium (3.6-5.2) mmol/L Carbon Dioxide (22-30) mmol/L Anion Gap (10-20) BUN (7-17) mg/dL Creatinine (0.7-1.2) MG/DL Est GFR ( Amer) Est GFR (Non-Af Amer) POC Glucose (mg/dL) 87 (65-110) mg/dL Random Glucose (65-105) mg/dL Calcium (8.6-10.4) mg/dl Phosphorus (2.5-4.5) mg/dL Magnesium (1.6-2.3) mg/dL Total Bilirubin (0.2-1.3) mg/dL AST (14-36) U/L ALT (9-52) U/L Alkaline Phosphatase (38-126) U/L Total Protein (6.3-8.3) g/dL Albumin (3.5-5.0) g/dL Globulin (2.2-3.9) gm/dL Albumin/Globulin Ratio (1.0-2.1) Amylase (30-110) U/L Lipase (23-300) U/L Free T4 (0.78-2.19) ng/dL TSH 3rd Generation (0.46-4.68) mIU/L Venous Blood Potassium 2.9 L (3.6-5.2) mmol/L Blood Type O POSITIVE Antibody Screen Negative Laboratory Results - last 24 hr 06/07/17 06/07/17 06/07/17 16:48 17:45 18:28 pO2 52 VBG pH 7.32 VBG pCO2 34 L VBG HCO3 18.5 VBG Total CO2 18.5 L VBG O2 Sat (Calc) 89.2 H VBG Base Excess -7.7 L VBG Potassium 2.9 L Sodium 143.0 Chloride 113.0 H Glucose 86 Lactate 1.7 Potassium Carbon Dioxide Anion Gap BUN Creatinine Est GFR ( Amer) Est GFR (Non-Af Amer) POC Glucose (mg/dL) 87 Random Glucose Calcium Phosphorus Magnesium Total Bilirubin AST ALT Alkaline Phosphatase Total Protein Albumin Globulin Albumin/Globulin Ratio Amylase Lipase Free T4 TSH 3rd Generation Venous Blood Potassium 2.9 L Blood Type O POSITIVE Antibody Screen Negative 06/07/17 06/08/17 06/08/17 18:31 06:42 06:42 pO2 VBG pH VBG pCO2 VBG HCO3 VBG Total CO2 VBG O2 Sat (Calc) VBG Base Excess VBG Potassium Sodium 141 Chloride 115 H Glucose Lactate Potassium 4.2 Carbon Dioxide 19 L Anion Gap 11 BUN 9 Creatinine 0.7 Est GFR ( Amer) > 60 Est GFR (Non-Af Amer) > 60 POC Glucose (mg/dL) Random Glucose 107 H Calcium 7.8 L Phosphorus 3.4 Magnesium 1.8 Total Bilirubin 0.5 AST 46 H D ALT 65 H D Alkaline Phosphatase 78 Total Protein 6.1 L Albumin 3.1 L Globulin 3.0 Albumin/Globulin Ratio 1.0 Amylase 48 Lipase 45 Free T4 1.14 TSH 3rd Generation 0.29 L Venous Blood Potassium Blood Type Antibody Screen EKG/Cardiology Studies: Cardiology / EKG Studies 06/07/17 17:06 ELECTROCARDIOGRAM Stat Comment: Mode Of Transportation: BED Reason For Exam: REPEAT Fingerstick Blood Sugar Results: 87 Review of Systems - Constitutional Constitutional: absent: Fever, Chills, Sweats - EENT Eyes: UNREMARKABLE Nose/Mouth/Throat: UNREMARKABLE - Cardiovascular Cardiovascular: UNREMARKABLE - Respiratory Respiratory: UNREMARKABLE - Gastrointestinal Gastrointestinal: UNREMARKABLE - Genitourinary Genitourinary: Dysuria, Flank Pain Additional comments: patient w/ snowden with normal urinary output - Musculoskeletal Musculoskeletal: UNREMARKABLE - Integumentary Integumentary: UNREMARKABLE - Neurological Neurological: UNREMARKABLE Critical Care Progress Note - Nutrition Nutrition: Nutrition Category Date Time Status Regular Diet [DIET] Diets 06/07/17 Lunch Active Assessment/Plan - Assessment and Plan (Free Text) Assessment: 52 year old female with (PMHx of Nephrolithiasis) who was found to be in Septic Shock Secondary to UTI/Left Pyelonephritis Secondary to Left Ureteral Stone. #. Pyelonephritis #. Ureterolithiasis #. Septic Shock #. Anemia #. Leukopenia Plan: 52 years old female with past medical hx of nephrolithiasis who comes with one day of sudden unset of severe left flank pain, radiating anteriorly and to the left groin, associated with dysuria, urinary urgency incontinence, nausea, chills and subjective fever. #. Pyelonephritis - UA positive for UTI - Consult Dr Marino ID - Rocephin and Gentamicin given in ED. Patient continued on Meropenem - IV Fluids - Pain management - Follow blood culture - Follow Urine culture #. Ureterolithiasis with Hydroureter - s/p Left Pyelogram Retrograde Cystoscopy with Left Ureteral Stent insertion 06/07/17 - CT results noted: 4 mm calcification at the distal left ureter at the level of the UVJ with moderate proximal hydroureter nephrosis. Left perinephric fluid/ stranding. - Consult Urology Dr. Hines - Pain management #.Septic Shock - ID on consult - Patient received 4.5 liters of NS in the ED - Continue IV Fluid 150mls/hr - Continue Antibiotics - Dopamine IV Titrate to MAP >65 via central line #. Anemia - Iron Panel - Follow HB #. Electrolyte Imbalance with Hypomagnesemia and Hypophosphatemia - Magnesium given - Potassium Phosphate IVPB - Follow Magnesium and Phosphorus levels #. Stress ulcer Prophylaxis with Pantoprazole #.DVT Prophylaxis with SCD, heparin SC 5000u sc q12 <Preston Gil S - Last Filed: 06/08/17 16:39> CCU Objective - Vital Signs / Intake & Output Vital Signs (Last 4 hours): Vital Signs Pulse Resp BP Pulse Ox 06/08/17 14:02 78 18 105/58 L 95 06/08/17 13:02 92 H 28 H 102/57 L 96 Intake and Output (Last 8hrs): Intake & Output 06/08/17 06/08/17 06/08/17 06:59 14:59 22:59 Intake Total 1715.0 2386.0 Output Total 1775 1125 Balance -60.0 1261.0 Weight 147 lb 4.3 oz Intake: IV 261 Intake, IV Amount 1715.0 1285.0 RFA 1200 150 Right Antecubital 160 110.0 Right Forearm 355.0 Right Hand 1025 Oral 840 Output: Urine 1775 1125 Urethral (Snowden) 1775 1125 - Medications Active Medications: Active Medications Generic Name Dose Route Start Last Admin Trade Name Freq PRN Reason Stop Dose Admin Acetaminophen 650 mg 06/08/17 12:14 06/08/17 12:19 Tylenol 325mg Tab PO 650 mg Q6 PRN Administration Headache Docusate Sodium 100 mg 06/08/17 10:30 06/08/17 10:24 Colace PO 100 mg BID ANANT Administration Ferrous Sulfate 325 mg 06/08/17 18:00 Feosol PO BID ANANT Heparin Sodium (Porcine) 5,000 units 06/07/17 22:00 06/08/17 10:17 Heparin SC 5,000 units Q12 ANANT Administration Dopamine HCl/Dextrose 400 mg in 250 mls @ 10.313 mls/hr 06/07/17 18:25 11:00 Dopamine 400mg/250ml D5w IV 6.06 mcg/kg/min .Q24H PRN 12.5 mls/hr TITRATE PER MD ORDER Titration Protocol 5 MCG/KG/MIN Meropenem 1 gm/ Sodium 100 mls @ 200 mls/hr 06/07/17 20:00 06/08/17 12:19 Chloride IVPB 200 mls/hr Q8H ANANT Administration Sodium Chloride 1,000 mls @ 150 mls/hr 06/07/17 21:15 06/08/17 11:16 Sodium Chloride 0.9% IV 150 mls/hr .Q6H40M ANANT Administration Gentamicin Sulfate/Sodium Chloride 80 mg in 100 mls @ 100 mls/hr 06/08/17 14: 00 06/08/17 14:23 Gentamicin Iv 80 Mg Premix IVPB 100 mls/hr Q8H ANANT Administration Morphine Sulfate 2 mg 06/08/17 00:27 06/08/17 01:00 Morphine IVP 2 mg Q4 PRN Administration Pain, moderate (4-7) Morphine Sulfate 4 mg 06/08/17 00:27 Morphine IVP Q4 PRN Pain, severe (8-10) Pantoprazole Sodium 40 mg 06/08/17 10:00 06/08/17 10:17 Protonix Ec Tab PO 40 mg DAILY ANANT Administration Saccharomyces Boulardii 250 mg 06/08/17 18:00 Florastor PO BID ANANT - Patient Studies Lab Studies: Lab Studies 06/08/17 06/08/17 06/08/17 Range/Units 09:29 06:42 06:42 WBC 20.7 H D (4.8-10.8) K/uL RBC 3.67 L (3.80-5.20) Mil/uL Hgb 9.6 L (11.0-16.0) g/dL Hct 30.0 L (34.0-47.0) % MCV 81.8 (81.0-99.0) fL MCH 26.2 L (27.0-31.0) pg MCHC 32.1 L (33.0-37.0) g/dL RDW 20.7 H (11.5-14.5) % Plt Count 212 (130-400) K/uL MPV 8.1 (7.2-11.7) fL Neut % (Auto) 92.7 H (50.0-75.0) % Lymph % (Auto) 3.2 L (20.0-40.0) % Borden % (Auto) 2.7 (0.0-10.0) % Eos % (Auto) 1.2 (0.0-4.0) % Baso % (Auto) 0.2 (0.0-2.0) % Neut # 19.2 H (1.8-7.0) K/uL Lymph # 0.7 L (1.0-4.3) K/uL Borden # 0.6 (0.0-0.8) K/uL Eos # 0.2 (0.0-0.7) K/uL Baso # 0.0 (0.0-0.2) K/uL Neutrophils % (Manual) 63 (50-75) % Band Neutrophils % 30 H* (0-2) % Lymphocytes % (Manual) 3 L (20-40) % Monocytes % (Manual) 3 (0-10) % Eosinophils % (Manual) 1 (0-4) % Platelet Estimate Normal (NORMAL) Polychromasia Slight Hypochromasia (manual) Slight Anisocytosis (manual) Slight pO2 (30-55) mm/Hg VBG pH (7.32-7.43) VBG pCO2 (40-60) mmHg VBG HCO3 mmol/L VBG Total CO2 (22-28) mmol/L VBG O2 Sat (Calc) (40-65) % VBG Base Excess (0.0-2.0) mmol/L VBG Potassium (3.6-5.2) mmol/L Sodium (132-148) mmol/l Chloride (98-107) mmol/L Glucose (65-105) mg/dl Lactate (0.7-2.1) mmol/L Potassium (3.6-5.2) mmol/L Carbon Dioxide (22-30) mmol/L Anion Gap (10-20) BUN (7-17) mg/dL Creatinine (0.7-1.2) MG/DL Est GFR ( Amer) Est GFR (Non-Af Amer) POC Glucose (mg/dL) (65-110) mg/dL Random Glucose (65-105) mg/dL Calcium (8.6-10.4) mg/dl Phosphorus (2.5-4.5) mg/dL Magnesium (1.6-2.3) mg/dL Iron 10 L (37-170) ug/dL TIBC 228 L (250-450) ug/dL % Saturation 4.385 L (20-55) Total Bilirubin (0.2-1.3) mg/dL AST (14-36) U/L ALT (9-52) U/L Alkaline Phosphatase (38-126) U/L Total Protein (6.3-8.3) g/dL Albumin (3.5-5.0) g/dL Globulin (2.2-3.9) gm/dL Albumin/Globulin Ratio (1.0-2.1) Amylase (30-110) U/L Lipase (23-300) U/L Free T4 1.14 (0.78-2.19) ng/dL TSH 3rd Generation (0.46-4.68) mIU/L Venous Blood Potassium (3.6-5.2) mmol/L Blood Type Antibody Screen 06/08/17 06/07/17 06/07/17 Range/Units 06:42 18:31 18:28 WBC (4.8-10.8) K/uL RBC (3.80-5.20) Mil/uL Hgb (11.0-16.0) g/dL Hct (34.0-47.0) % MCV (81.0-99.0) fL MCH (27.0-31.0) pg MCHC (33.0-37.0) g/dL RDW (11.5-14.5) % Plt Count (130-400) K/uL MPV (7.2-11.7) fL Neut % (Auto) (50.0-75.0) % Lymph % (Auto) (20.0-40.0) % Borden % (Auto) (0.0-10.0) % Eos % (Auto) (0.0-4.0) % Baso % (Auto) (0.0-2.0) % Neut # (1.8-7.0) K/uL Lymph # (1.0-4.3) K/uL Borden # (0.0-0.8) K/uL Eos # (0.0-0.7) K/uL Baso # (0.0-0.2) K/uL Neutrophils % (Manual) (50-75) % Band Neutrophils % (0-2) % Lymphocytes % (Manual) (20-40) % Monocytes % (Manual) (0-10) % Eosinophils % (Manual) (0-4) % Platelet Estimate (NORMAL) Polychromasia Hypochromasia (manual) Anisocytosis (manual) pO2 (30-55) mm/Hg VBG pH (7.32-7.43) VBG pCO2 (40-60) mmHg VBG HCO3 mmol/L VBG Total CO2 (22-28) mmol/L VBG O2 Sat (Calc) (40-65) % VBG Base Excess (0.0-2.0) mmol/L VBG Potassium (3.6-5.2) mmol/L Sodium 141 (132-148) mmol/l Chloride 115 H (98-107) mmol/L Glucose (65-105) mg/dl Lactate (0.7-2.1) mmol/L Potassium 4.2 (3.6-5.2) mmol/L Carbon Dioxide 19 L (22-30) mmol/L Anion Gap 11 (10-20) BUN 9 (7-17) mg/dL Creatinine 0.7 (0.7-1.2) MG/DL Est GFR ( Amer) > 60 Est GFR (Non-Af Amer) > 60 POC Glucose (mg/dL) (65-110) mg/dL Random Glucose 107 H (65-105) mg/dL Calcium 7.8 L (8.6-10.4) mg/dl Phosphorus 3.4 (2.5-4.5) mg/dL Magnesium 1.8 (1.6-2.3) mg/dL Iron (37-170) ug/dL TIBC (250-450) ug/dL % Saturation (20-55) Total Bilirubin 0.5 (0.2-1.3) mg/dL AST 46 H D (14-36) U/L ALT 65 H D (9-52) U/L Alkaline Phosphatase 78 (38-126) U/L Total Protein 6.1 L (6.3-8.3) g/dL Albumin 3.1 L (3.5-5.0) g/dL Globulin 3.0 (2.2-3.9) gm/dL Albumin/Globulin Ratio 1.0 (1.0-2.1) Amylase 48 (30-110) U/L Lipase 45 (23-300) U/L Free T4 (0.78-2.19) ng/dL TSH 3rd Generation 0.29 L (0.46-4.68) mIU/L Venous Blood Potassium (3.6-5.2) mmol/L Blood Type O POSITIVE Antibody Screen Negative 06/07/17 06/07/17 Range/Units 17:45 16:48 WBC (4.8-10.8) K/uL RBC (3.80-5.20) Mil/uL Hgb (11.0-16.0) g/dL Hct (34.0-47.0) % MCV (81.0-99.0) fL MCH (27.0-31.0) pg MCHC (33.0-37.0) g/dL RDW (11.5-14.5) % Plt Count (130-400) K/uL MPV (7.2-11.7) fL Neut % (Auto) (50.0-75.0) % Lymph % (Auto) (20.0-40.0) % Borden % (Auto) (0.0-10.0) % Eos % (Auto) (0.0-4.0) % Baso % (Auto) (0.0-2.0) % Neut # (1.8-7.0) K/uL Lymph # (1.0-4.3) K/uL Borden # (0.0-0.8) K/uL Eos # (0.0-0.7) K/uL Baso # (0.0-0.2) K/uL Neutrophils % (Manual) (50-75) % Band Neutrophils % (0-2) % Lymphocytes % (Manual) (20-40) % Monocytes % (Manual) (0-10) % Eosinophils % (Manual) (0-4) % Platelet Estimate (NORMAL) Polychromasia Hypochromasia (manual) Anisocytosis (manual) pO2 52 (30-55) mm/Hg VBG pH 7.32 (7.32-7.43) VBG pCO2 34 L (40-60) mmHg VBG HCO3 18.5 mmol/L VBG Total CO2 18.5 L (22-28) mmol/L VBG O2 Sat (Calc) 89.2 H (40-65) % VBG Base Excess -7.7 L (0.0-2.0) mmol/L VBG Potassium 2.9 L (3.6-5.2) mmol/L Sodium 143.0 (132-148) mmol/l Chloride 113.0 H (98-107) mmol/L Glucose 86 (65-105) mg/dl Lactate 1.7 (0.7-2.1) mmol/L Potassium (3.6-5.2) mmol/L Carbon Dioxide (22-30) mmol/L Anion Gap (10-20) BUN (7-17) mg/dL Creatinine (0.7-1.2) MG/DL Est GFR ( Amer) Est GFR (Non-Af Amer) POC Glucose (mg/dL) 87 (65-110) mg/dL Random Glucose (65-105) mg/dL Calcium (8.6-10.4) mg/dl Phosphorus (2.5-4.5) mg/dL Magnesium (1.6-2.3) mg/dL Iron (37-170) ug/dL TIBC (250-450) ug/dL % Saturation (20-55) Total Bilirubin (0.2-1.3) mg/dL AST (14-36) U/L ALT (9-52) U/L Alkaline Phosphatase (38-126) U/L Total Protein (6.3-8.3) g/dL Albumin (3.5-5.0) g/dL Globulin (2.2-3.9) gm/dL Albumin/Globulin Ratio (1.0-2.1) Amylase (30-110) U/L Lipase (23-300) U/L Free T4 (0.78-2.19) ng/dL TSH 3rd Generation (0.46-4.68) mIU/L Venous Blood Potassium 2.9 L (3.6-5.2) mmol/L Blood Type Antibody Screen Laboratory Results - last 24 hr 06/07/17 06/07/17 06/07/17 16:48 17:45 18:28 WBC RBC Hgb Hct MCV MCH MCHC RDW Plt Count MPV Neut % (Auto) Lymph % (Auto) Borden % (Auto) Eos % (Auto) Baso % (Auto) Neut # Lymph # Borden # Eos # Baso # Neutrophils % (Manual) Band Neutrophils % Lymphocytes % (Manual) Monocytes % (Manual) Eosinophils % (Manual) Platelet Estimate Polychromasia Hypochromasia (manual) Anisocytosis (manual) pO2 52 VBG pH 7.32 VBG pCO2 34 L VBG HCO3 18.5 VBG Total CO2 18.5 L VBG O2 Sat (Calc) 89.2 H VBG Base Excess -7.7 L VBG Potassium 2.9 L Sodium 143.0 Chloride 113.0 H Glucose 86 Lactate 1.7 Potassium Carbon Dioxide Anion Gap BUN Creatinine Est GFR ( Amer) Est GFR (Non-Af Amer) POC Glucose (mg/dL) 87 Random Glucose Calcium Phosphorus Magnesium Iron TIBC % Saturation Total Bilirubin AST ALT Alkaline Phosphatase Total Protein Albumin Globulin Albumin/Globulin Ratio Amylase Lipase Free T4 TSH 3rd Generation Venous Blood Potassium 2.9 L Blood Type O POSITIVE Antibody Screen Negative 06/07/17 06/08/17 06/08/17 18:31 06:42 06:42 WBC RBC Hgb Hct MCV MCH MCHC RDW Plt Count MPV Neut % (Auto) Lymph % (Auto) Borden % (Auto) Eos % (Auto) Baso % (Auto) Neut # Lymph # Borden # Eos # Baso # Neutrophils % (Manual) Band Neutrophils % Lymphocytes % (Manual) Monocytes % (Manual) Eosinophils % (Manual) Platelet Estimate Polychromasia Hypochromasia (manual) Anisocytosis (manual) pO2 VBG pH VBG pCO2 VBG HCO3 VBG Total CO2 VBG O2 Sat (Calc) VBG Base Excess VBG Potassium Sodium 141 Chloride 115 H Glucose Lactate Potassium 4.2 Carbon Dioxide 19 L Anion Gap 11 BUN 9 Creatinine 0.7 Est GFR ( Amer) > 60 Est GFR (Non-Af Amer) > 60 POC Glucose (mg/dL) Random Glucose 107 H Calcium 7.8 L Phosphorus 3.4 Magnesium 1.8 Iron TIBC % Saturation Total Bilirubin 0.5 AST 46 H D ALT 65 H D Alkaline Phosphatase 78 Total Protein 6.1 L Albumin 3.1 L Globulin 3.0 Albumin/Globulin Ratio 1.0 Amylase 48 Lipase 45 Free T4 1.14 TSH 3rd Generation 0.29 L Venous Blood Potassium Blood Type Antibody Screen 06/08/17 06/08/17 06:42 09:29 WBC 20.7 H D RBC 3.67 L Hgb 9.6 L Hct 30.0 L MCV 81.8 MCH 26.2 L MCHC 32.1 L RDW 20.7 H Plt Count 212 MPV 8.1 Neut % (Auto) 92.7 H Lymph % (Auto) 3.2 L Borden % (Auto) 2.7 Eos % (Auto) 1.2 Baso % (Auto) 0.2 Neut # 19.2 H Lymph # 0.7 L Borden # 0.6 Eos # 0.2 Baso # 0.0 Neutrophils % (Manual) 63 Band Neutrophils % 30 H* Lymphocytes % (Manual) 3 L Monocytes % (Manual) 3 Eosinophils % (Manual) 1 Platelet Estimate Normal Polychromasia Slight Hypochromasia (manual) Slight Anisocytosis (manual) Slight pO2 VBG pH VBG pCO2 VBG HCO3 VBG Total CO2 VBG O2 Sat (Calc) VBG Base Excess VBG Potassium Sodium Chloride Glucose Lactate Potassium Carbon Dioxide Anion Gap BUN Creatinine Est GFR ( Amer) Est GFR (Non-Af Amer) POC Glucose (mg/dL) Random Glucose Calcium Phosphorus Magnesium Iron 10 L TIBC 228 L % Saturation 4.385 L Total Bilirubin AST ALT Alkaline Phosphatase Total Protein Albumin Globulin Albumin/Globulin Ratio Amylase Lipase Free T4 TSH 3rd Generation Venous Blood Potassium Blood Type Antibody Screen EKG/Cardiology Studies: Cardiology / EKG Studies 06/07/17 17:06 ELECTROCARDIOGRAM Stat Comment: Mode Of Transportation: BED Reason For Exam: REPEAT Critical Care Progress Note - Nutrition Nutrition: Nutrition Category Date Time Status Regular Diet [DIET] Diets 06/07/17 Lunch Active Attending/Attestation - Attestation I have personally seen and examined this patient.: Yes I have fully participated in the care of the patient.: Yes I have reviewed all pertinent clinical information: Yes Notes (Text): 06/08/17 16:34 Patient seen and examined in the intensive care unit. Case discussed with house staff in the morning. s/p Left Pyelogram Retrograde Cystoscopy with Left Ureteral Stent insertion Continue IV antibiotics Blood and urine culture positive for gram-negative broad Follow-up sensitivity Taper off pressors IV fluids
--- NOTE | 2017-06-08 08:43 | RAD ---
PROCEDURE: Intraoperative fluoroscopy HISTORY: LEFT HYDRONEPHROSIS COMPARISON: Not available TECHNIQUE: Intraoperative fluoroscopy was provided for left retrograde pyelo ureteral atrophy and ureteral stent placement. Total time of fluoroscopy was 18.5 seconds. FINDINGS: Multiple fluoroscopic spot films are submitted. Films are on file for review. IMPRESSION: Fluoroscopy provided.
[2017-06-08 09:36] LABS: BASO % 0.2 % (0.0-2.0); EOS # 0.2 K/uL (0.0-0.7); EOS % 1.2 % (0.0-4.0); LYMPH # 0.7 K/uL (1.0-4.3); LYMPH % 3.2 % (20.0-40.0); MEAN CELL VOLUME 81.8 fL (81.0-99.0); MEAN CORPUSCULAR HEMOGLOBIN 26.2 pg (27.0-31.0); MEAN CORPUSCULAR HGB CONC 32.1 g/dL (33.0-37.0); MEAN PLATELET VOLUME 8.1 fL (7.2-11.7); MONO # 0.6 K/uL (0.0-0.8); MONO % 2.7 % (0.0-10.0); PLATELET COUNT 212 K/uL (130-400); RED CELL DISTRIBUTION WIDTH 20.7 % (11.5-14.5)
[2017-06-08 09:39] LABS: WHITE BLOOD COUNT 20.7 K/uL (4.8-10.8)
--- NOTE | 2017-06-08 09:52 | RAD ---
HISTORY: HYDRONEPHROSIS/LEFT URETERAL STONE COMPARISON: There really no prior there is really no prior CT right this is though FINDINGS: BOWEL: Normal abdominal bowel gas pattern. No hepatic or splenic enlargement. No masses or abnormal calcifications. Contrast material partially distends the urinary bladder. BONES: Normal. OTHER FINDINGS: None. IMPRESSION: Normal bowel gas pattern. Contrast within urinary bladder.
[2017-06-08] MEDS ORDERED: Pantoprazole 40 mg EC Tab PO SCH (10:00)
[2017-06-08 10:15] LABS: EOSINOPHIL 1 % (0-4); NEUTROPHIL 63 % (50-75); TOTAL CELLS COUNTED 100
--- NOTE | 2017-06-08 10:35 | CP.PCM.PN ---
Subjective - Date & Time of Evaluation Date of Evaluation: 06/08/17 Time of Evaluation: 10:31 - Subjective Subjective: Hospitalist Progress Note Patient was seen and examined at 10:41 AM 06/08/17 52 year old female with (PMHx of Nephrolithiasis) who was found to be in Septic Shock Secondary to UTI/Left Pyelonephritis Secondary to Left Ureteral Stone. Patient underwent Left Pyelogram Retrograde Cystoscopy with Left Ureteral Stent insertion on the night of 06/07/17. She was then admitted to the ICU for further treatment. Please see Assessment and Plans below for further details. Currently upon FULL ROS: Still with sharp Left Flank pain that comes and goes Bifrontal pouding headache but NO visual changes Has not moved bowels since 06/07/17 morning Feels week NO other complaints upon FULL ROS Exam: General: AAOx3, NAD HEENT: NCA, EOMI, PERRLA, NO cervical/supraclavicular/submandibular lymphadenopathy, NO pharyngeal erythema/exudate, Mucous Membranes are moist, Nasal Turbinates are nonedematous/nonerythematous Cardio: NS1 and NS2, NO M/R/G Respiratory: CTA B/L, NO R/R/W GI: BSx4, Soft, NT, ND, NO HSM, NO guarding/rebound tenderness, Left CVA Tenderness Ext: NO edema, Pulses are strong and equal, Capillary Refill is 2 seconds Neuro: CN II through XII are grossly intact Assessment and Plan (Free Text) 1). Septic Shock secondary to UTI/Pyelonephritis Upon presentation in ER: Patient with initial fever of 102.8, tachycardic, hypotensive not responding to fluids despite nearly 5 L bolus. Consult to ID Dr. Marino Meropenem 1 gm IV Q8H Vancomycin ? UA positive for UTI F/U Blood Culture Urine Culture 06/07/17 preliminary shows Gram Negative Rods I spoke with Critical Care Physician Dr. Gil and Central Line will be placed today so that the Dopamine (which is running currently at 5 mcg/kg/min) can be increased as patient's blood pressure is still in the low 90s SBP. 2). Left Ureter Nephrolithiasis CT Abdomen/Pelvis: 4 mm calcification at the distal left ureter at the level of the UVJ with moderate proximal hydroureter nephrosis. Left perinephric fluid/ stranding. No hydronephrosis or obstructing calculus on the right. 8 mm too small to characterize right renal hypodensity; statistically likely a cyst. S/P Left Pyelogram Retrograde Cystoscopy with Left Ureteral Stent placement by Urology Dr. Elly Hines on night of 06/07/17 3). Gall Bladder Wall thickening Abdominal U/S did not show any acute gall bladder findings, right renal subcentimeter cyst, fatty liver, borderline splenic enlargement 4). Fluid around Pancreatic tail noted on CT imaging Liapse and Amylase order with results within normal limits. These findings may be secondary to the perinephric fluid rather then due to pancreatic pathology: no epigastric tenderness on exam 5). Questionable 8 mm renal cyst Abdominal U/S revealed a right subcentimeter renal cyst F/U renal U/S at 6 months time This should be relayed to patient upon discharge as well for follow up care. 6). Electrolyte imbalance Low magnesium and low phosphorus and both were repleted on 06/07/17 and levels have normalized Continue to monitor 7). Anemia Likely Secondary to Iron Deficiency Iron levels are low Ferrous Sulfate 325 mg PO 2x/day 8). Prophylactic Measure Protonix 40 mg PO daily Heparin SC 5,000 units Q12 SCDs Florastor 250 mg PO 2x/day Colace 100 mg PO 2x/day Moose Livingston D.O. Objective - Vital Signs/Intake and Output Vital Signs (last 24 hours): Temp Pulse Resp BP Pulse Ox 97.8 F 92 H 27 H 89/53 L 97 06/08/17 08:00 06/08/17 09:02 06/08/17 09:02 06/08/17 09:02 06/08/17 09:02 Intake and Output: 06/08/17 06/08/17 06:59 18:59 Intake Total 2219.9 1026 Output Total 2250 325 Balance -30.1 701 - Medications Medications: Current Medications Docusate Sodium (Colace) 100 mg PO BID [facility] Last Admin: 06/08/17 10:24 Dose: 100 mg Heparin Sodium (Porcine) (Heparin) 5,000 units SC Q12 [facility] Last Admin: 06/08/17 10:17 Dose: 5,000 units Dopamine HCl/Dextrose (Dopamine 400mg/250ml D5w) 400 mg in 250 mls @ 10.313 mls /hr IV .Q24H PRN; Protocol; 5 MCG/KG/MIN PRN Reason: TITRATE PER MD ORDER Last Admin: 06/08/17 08:00 Dose: 7.27 mcg/kg/min, 15 mls/hr Meropenem 1 gm/ Sodium (Chloride) 100 mls @ 200 mls/hr IVPB Q8H [facility] Last Admin: 06/08/17 03:05 Dose: 200 mls/hr Sodium Chloride (Sodium Chloride 0.9%) 1,000 mls @ 150 mls/hr IV .Q6H40M [facility] Last Admin: 06/08/17 04:36 Dose: 150 mls/hr Morphine Sulfate (Morphine) 2 mg IVP Q4 PRN PRN Reason: Pain, moderate (4-7) Last Admin: 06/08/17 01:00 Dose: 2 mg Morphine Sulfate (Morphine) 4 mg IVP Q4 PRN PRN Reason: Pain, severe (8-10) Pantoprazole Sodium (Protonix Ec Tab) 40 mg PO DAILY [facility] Last Admin: 06/08/17 10:17 Dose: 40 mg Saccharomyces Boulardii (Florastor) 250 mg PO BID [facility] - Labs Labs: 06/08/17 09:29 06/08/17 06:42 PT 12.1 SECONDS (9.7-12.2) 06/07/17 12:52 INR 1.1 06/07/17 12:52 APTT 26 SECONDS (21-34) 06/07/17 12:52
--- NOTE | 2017-06-08 12:26 | RAD ---
HISTORY: s/p central line placement COMPARISON: Portable chest 06/07/2017. FINDINGS: LUNGS: Limited patchy atelectasis or infiltrate seen the right infrahilar space with a right internal jugular central venous line now placed terminating the distal superior cava. No pneumothorax identified. There is no pleural effusion bilaterally either. PLEURA: As above. CARDIOVASCULAR: Stable cardiac silhouette. No pulmonary vascular derangement evident. OSSEOUS STRUCTURES: No significant abnormalities. VISUALIZED UPPER ABDOMEN: Normal. OTHER FINDINGS: Proximal segment of a left ureteral stent identified. IMPRESSION: 1. Status post right internal jugular venous catheter placement as discussed above. No pneumothorax. 2. Medial right basilar atelectasis or infiltrate, minimal.
[2017-06-08] MEDS: Gentamicin 80 mg in 0.9% NS 80 MG/100 ML BAG IVPB SCH ×2 (14:23→21:48)
[2017-06-08] MEDS: Saccharomyces Boulardi 250 mg Cap PO SCH (17:34)
--- NOTE | 2017-06-08 17:42 | PCM.URO ---
Urology Progress Note - General General: Tolerating Diet - Subjective Abdominal Pain: No Flank Pain: No Stone Passed: No Dsypnea: No Chest Pain: No Fever & Chills: No - Objective Lab Studies: Reviewed Lab Results Last 24 Hours: Laboratory Results - last 24 hr 06/07/17 06/07/17 06/07/17 17:45 18:28 18:31 WBC RBC Hgb Hct MCV MCH MCHC RDW Plt Count MPV Neut % (Auto) Lymph % (Auto) [place] % (Auto) Eos % (Auto) Baso % (Auto) Neut # Lymph # [place] # Eos # Baso # Neutrophils % (Manual) Band Neutrophils % Lymphocytes % (Manual) Monocytes % (Manual) Eosinophils % (Manual) Platelet Estimate Polychromasia Hypochromasia (manual) Anisocytosis (manual) pO2 52 VBG pH 7.32 VBG pCO2 34 L VBG HCO3 18.5 VBG Total CO2 18.5 L VBG O2 Sat (Calc) 89.2 H VBG Base Excess -7.7 L VBG Potassium 2.9 L Sodium 143.0 Chloride 113.0 H Glucose 86 Lactate 1.7 Potassium Carbon Dioxide Anion Gap BUN Creatinine Est GFR ( Amer) Est GFR (Non-Af Amer) Random Glucose Calcium Phosphorus Magnesium Iron TIBC % Saturation Total Bilirubin AST ALT Alkaline Phosphatase Total Protein Albumin Globulin Albumin/Globulin Ratio Amylase 48 Lipase 45 Free T4 TSH 3rd Generation Venous Blood Potassium 2.9 L Blood Type O POSITIVE Antibody Screen Negative 06/08/17 06/08/17 06/08/17 06:42 06:42 06:42 WBC RBC Hgb Hct MCV MCH MCHC RDW Plt Count MPV Neut % (Auto) Lymph % (Auto) [place] % (Auto) Eos % (Auto) Baso % (Auto) Neut # Lymph # [place] # Eos # Baso # Neutrophils % (Manual) Band Neutrophils % Lymphocytes % (Manual) Monocytes % (Manual) Eosinophils % (Manual) Platelet Estimate Polychromasia Hypochromasia (manual) Anisocytosis (manual) pO2 VBG pH VBG pCO2 VBG HCO3 VBG Total CO2 VBG O2 Sat (Calc) VBG Base Excess VBG Potassium Sodium 141 Chloride 115 H Glucose Lactate Potassium 4.2 Carbon Dioxide 19 L Anion Gap 11 BUN 9 Creatinine 0.7 Est GFR ( Amer) > 60 Est GFR (Non-Af Amer) > 60 Random Glucose 107 H Calcium 7.8 L Phosphorus 3.4 Magnesium 1.8 Iron 10 L TIBC 228 L % Saturation 4.385 L Total Bilirubin 0.5 AST 46 H D ALT 65 H D Alkaline Phosphatase 78 Total Protein 6.1 L Albumin 3.1 L Globulin 3.0 Albumin/Globulin Ratio 1.0 Amylase Lipase Free T4 1.14 TSH 3rd Generation 0.29 L Venous Blood Potassium Blood Type Antibody Screen 06/08/17 09:29 WBC 20.7 H D RBC 3.67 L Hgb 9.6 L Hct 30.0 L MCV 81.8 MCH 26.2 L MCHC 32.1 L RDW 20.7 H Plt Count 212 MPV 8.1 Neut % (Auto) 92.7 H Lymph % (Auto) 3.2 L [place] % (Auto) 2.7 Eos % (Auto) 1.2 Baso % (Auto) 0.2 Neut # 19.2 H Lymph # 0.7 L [place] # 0.6 Eos # 0.2 Baso # 0.0 Neutrophils % (Manual) 63 Band Neutrophils % 30 H* Lymphocytes % (Manual) 3 L Monocytes % (Manual) 3 Eosinophils % (Manual) 1 Platelet Estimate Normal Polychromasia Slight Hypochromasia (manual) Slight Anisocytosis (manual) Slight pO2 VBG pH VBG pCO2 VBG HCO3 VBG Total CO2 VBG O2 Sat (Calc) VBG Base Excess VBG Potassium Sodium Chloride Glucose Lactate Potassium Carbon Dioxide Anion Gap BUN Creatinine Est GFR ( Amer) Est GFR (Non-Af Amer) Random Glucose Calcium Phosphorus Magnesium Iron TIBC % Saturation Total Bilirubin AST ALT Alkaline Phosphatase Total Protein Albumin Globulin Albumin/Globulin Ratio Amylase Lipase Free T4 TSH 3rd Generation Venous Blood Potassium Blood Type Antibody Screen Intake & Output: Intake & Output 06/07/17 06/08/17 06/08/17 18:59 06:59 18:59 Intake Total 1000 2219.9 2873.5 Output Total 2250 1125 Balance 1000 -30.1 1748.5 Weight 147 lb 4.3 oz Intake: IV 1000 34 261 Intake, IV Amount 2185.9 1772.5 RFA 1450 150 Right Antecubital 227.7 147.5 Right Forearm 508.2 Right Hand 1475 Oral 0 840 Output: Urine 2250 1125 Urethral (Moody) 2250 1125 Other: Voiding Method Bedpan Vital Signs: Vital Signs - 24 hr 06/07/17 06/07/17 06/07/17 18:11 18:18 18:38 Temperature 98 F Pulse Rate 112 H 113 H Pulse Rate [ Bilateral Radial] Respiratory 22 20 Rate Blood Pressure 82/45 L 78/46 L O2 Sat by Pulse 96 98 98 Oximetry 06/07/17 06/07/17 06/07/17 18:39 18:47 19:08 Temperature Pulse Rate 107 H 118 H 117 H Pulse Rate [ Bilateral Radial] Respiratory 18 22 32 H Rate Blood Pressure 78/45 L 90/51 L 91/49 L O2 Sat by Pulse 100 97 97 Oximetry 06/07/17 06/07/17 06/07/17 19:21 19:30 19:34 Temperature 98 F Pulse Rate 115 H 115 H Pulse Rate [ 106 H Bilateral Radial] Respiratory 22 32 H Rate Blood Pressure 89/48 L 96/51 L O2 Sat by Pulse 96 98 Oximetry 06/07/17 06/07/17 06/07/17 20:43 20:45 20:58 Temperature 97.8 F Pulse Rate 106 H 105 H 105 H Pulse Rate [ Bilateral Radial] Respiratory 27 H 22 26 H Rate Blood Pressure 101/53 L 101/53 L 69/36 L O2 Sat by Pulse 94 L 94 L 95 Oximetry 06/07/17 06/07/17 06/07/17 21:00 21:03 21:12 Temperature Pulse Rate 105 H 109 H 109 H Pulse Rate [ Bilateral Radial] Respiratory 25 H 28 H 17 Rate Blood Pressure 69/36 L 80/39 L 92/45 L O2 Sat by Pulse 95 95 96 Oximetry 06/07/17 06/07/17 06/07/17 21:15 21:27 21:30 Temperature Pulse Rate 109 H 108 H 108 H Pulse Rate [ Bilateral Radial] Respiratory 22 23 24 Rate Blood Pressure 92/45 L 97/51 L 97/51 L O2 Sat by Pulse 95 95 94 L Oximetry 06/07/17 06/07/17 06/07/17 21:40 21:42 21:45 Temperature 97.9 F Pulse Rate 107 H 106 H Pulse Rate [ Bilateral Radial] Respiratory 26 H 20 Rate Blood Pressure 102/49 L 102/49 L O2 Sat by Pulse 95 94 L Oximetry 06/07/17 06/07/17 06/07/17 21:57 22:00 22:17 Temperature Pulse Rate 108 H 104 H 105 H Pulse Rate [ Bilateral Radial] Respiratory 27 H 25 H 25 H Rate Blood Pressure 103/45 L 103/45 L 95/46 L O2 Sat by Pulse 94 L 94 L 94 L Oximetry 06/07/17 06/07/17 06/07/17 22:32 22:44 23:00 Temperature Pulse Rate 104 H 103 H 105 H Pulse Rate [ Bilateral Radial] Respiratory 28 H 26 H 15 Rate Blood Pressure 100/46 L 100/46 L O2 Sat by Pulse 95 96 96 Oximetry 06/07/17 06/07/17 06/08/17 23:04 23:34 00:00 Temperature 97.8 F Pulse Rate 104 H 103 H 109 H Pulse Rate [ Bilateral Radial] Respiratory 25 H 25 H 23 Rate Blood Pressure 96/46 L 95/44 L 100/53 L O2 Sat by Pulse 96 96 95 Oximetry 06/08/17 06/08/17 06/08/17 00:04 00:34 01:00 Temperature Pulse Rate 103 H 103 H Pulse Rate [ Bilateral Radial] Respiratory 25 H 25 H Rate Blood Pressure 100/53 L 95/49 L 95/49 L O2 Sat by Pulse 95 94 L Oximetry 06/08/17 06/08/17 06/08/17 01:03 01:34 02:00 Temperature Pulse Rate 104 H 97 H 94 H Pulse Rate [ Bilateral Radial] Respiratory 17 20 22 Rate Blood Pressure 104/55 L 104/49 L 104/49 L O2 Sat by Pulse 93 L 94 L 94 L Oximetry 06/08/17 06/08/17 06/08/17 02:02 03:00 03:03 Temperature Pulse Rate 98 H 91 H 99 H Pulse Rate [ Bilateral Radial] Respiratory 24 24 22 Rate Blood Pressure 102/52 L 102/52 L 79/44 L O2 Sat by Pulse 94 L 94 L 95 Oximetry 06/08/17 06/08/17 06/08/17 03:12 04:00 04:02 Temperature 97.8 F Pulse Rate 92 H 97 H 96 H Pulse Rate [ Bilateral Radial] Respiratory 25 H 21 23 Rate Blood Pressure 113/59 L 113/59 L 109/54 L O2 Sat by Pulse 95 95 94 L Oximetry 06/08/17 06/08/17 06/08/17 05:00 05:02 06:00 Temperature Pulse Rate 91 H 96 H 84 Pulse Rate [ Bilateral Radial] Respiratory 24 20 Rate Blood Pressure 109/54 L 96/45 L 96/45 L O2 Sat by Pulse 95 95 95 Oximetry 06/08/17 06/08/17 06/08/17 06:02 07:00 07:02 Temperature Pulse Rate 83 83 85 Pulse Rate [ Bilateral Radial] Respiratory 21 22 24 Rate Blood Pressure 113/53 L 121/58 L O2 Sat by Pulse 95 95 96 Oximetry 06/08/17 06/08/17 06/08/17 08:00 08:03 08:14 Temperature 97.8 F Pulse Rate 92 H 94 H 92 H Pulse Rate [ Bilateral Radial] Respiratory 24 26 H 27 H Rate Blood Pressure 95/51 L 88/47 L 95/51 L O2 Sat by Pulse 96 96 96 Oximetry 06/08/17 06/08/17 06/08/17 09:02 10:04 11:02 Temperature Pulse Rate 92 H 87 94 H Pulse Rate [ Bilateral Radial] Respiratory 27 H 27 H 28 H Rate Blood Pressure 89/53 L 103/59 L 112/69 O2 Sat by Pulse 97 96 96 Oximetry 06/08/17 06/08/17 06/08/17 12:00 12:02 13:02 Temperature 98.1 F Pulse Rate 96 H 92 H Pulse Rate [ Bilateral Radial] Respiratory 32 H 28 H Rate Blood Pressure 111/67 102/57 L O2 Sat by Pulse 94 L 96 Oximetry 06/08/17 06/08/17 06/08/17 14:02 15:02 16:00 Temperature 98.1 F Pulse Rate 78 85 Pulse Rate [ Bilateral Radial] Respiratory 18 24 Rate Blood Pressure 105/58 L 106/57 L O2 Sat by Pulse 95 95 Oximetry 06/08/17 06/08/17 16:02 17:00 Temperature Pulse Rate 86 86 Pulse Rate [ Bilateral Radial] Respiratory 23 25 H Rate Blood Pressure 103/49 L O2 Sat by Pulse 95 93 L Oximetry - Physical Exam Abdominal Exam: Soft, Non-Tender, Non-Distended Back: No CVA Tenderness - Plan Additional Information: IMP: UTI/ UROSEPSIS. CLINICALLY STABLE, POST CYSTO AND STENT INSERTION. REC/P: ICU CARE. ANTIBIOTIC RX. CULTURES. DISCUSSED W PT, FAMILY, ICU STAFF - Date & Time of Note Date: 06/08/17 Time: 17:50
--- NOTE | 2017-06-08 21:43 | CP.PCM.CON ---
History of Present Illness - History of Present Illness History of Present Illness: dictated Past Patient History - Past Medical History & Family History Past Medical History?: No - Past Social History Smoking Status: Never Smoked Chewing Tobacco Use: No Cigar Use: No Alcohol: None Drugs: Denies Home Situation {Lives}: With Family - CARDIAC Hx Cardiac Disorders: No - PULMONARY Hx Respiratory Disorders: No - NEUROLOGICAL Hx Neurological Disorder: No - HEENT Hx HEENT Problems: No - RENAL Hx Chronic Kidney Disease: No - ENDOCRINE/METABOLIC Hx Endocrine Disorders: No - HEMATOLOGICAL/ONCOLOGICAL Hx Blood Disorders: No - INTEGUMENTARY Hx Dermatological Problems: No - MUSCULOSKELETAL/RHEUMATOLOGICAL Hx Musculoskeletal Disorders: No - GASTROINTESTINAL Hx Gastrointestinal Disorders: No - GENITOURINARY/GYNECOLOGICAL Hx Genitourinary Disorders: No - PSYCHIATRIC Hx Psychophysiologic Disorder: No Hx Substance Use: No - SURGICAL HISTORY Hx Surgeries: No Other/Comment: PT DENIES - ANESTHESIA Hx Anesthesia: No Meds Allergies/Adverse Reactions: Allergies Allergy/AdvReac Type Severity Reaction Status Date / Time No Known Allergies Allergy Verified 06/07/17 12:17 - Medications Medications: Current Medications Acetaminophen (Tylenol 325mg Tab) 650 mg PO Q6 PRN PRN Reason: Headache Last Admin: 06/08/17 12:19 Dose: 650 mg Docusate Sodium (Colace) 100 mg PO BID [facility] Last Admin: 06/08/17 17:35 Dose: 100 mg Ferrous Sulfate (Feosol) 325 mg PO BID [facility] Last Admin: 06/08/17 17:35 Dose: 325 mg Heparin Sodium (Porcine) (Heparin) 5,000 units SC Q12 [facility] Last Admin: 06/08/17 10:17 Dose: 5,000 units Dopamine HCl/Dextrose (Dopamine 400mg/250ml D5w) 400 mg in 250 mls @ 10.313 mls /hr IV .Q24H PRN; Protocol; 5 MCG/KG/MIN PRN Reason: TITRATE PER MD ORDER Last Titration: 06/08/17 17:00 Dose: 4.84 mcg/kg/min, 10 mls/hr Meropenem 1 gm/ Sodium (Chloride) 100 mls @ 200 mls/hr IVPB Q8H [facility] Last Admin: 06/08/17 20:50 Dose: 200 mls/hr Sodium Chloride (Sodium Chloride 0.9%) 1,000 mls @ 150 mls/hr IV .Q6H40M [facility] Last Admin: 06/08/17 19:38 Dose: 150 mls/hr Gentamicin Sulfate/Sodium Chloride (Gentamicin Iv 80 Mg Premix) 80 mg in 100 mls @ 100 mls/hr IVPB Q8H [facility] Last Admin: 06/08/17 14:23 Dose: 100 mls/hr Morphine Sulfate (Morphine) 2 mg IVP Q4 PRN PRN Reason: Pain, moderate (4-7) Last Admin: 06/08/17 01:00 Dose: 2 mg Morphine Sulfate (Morphine) 4 mg IVP Q4 PRN PRN Reason: Pain, severe (8-10) Ondansetron HCl (Zofran Inj) 4 mg IVP Q6H PRN PRN Reason: Nausea/Vomiting Last Admin: 06/08/17 18:49 Dose: 4 mg Pantoprazole Sodium (Protonix Ec Tab) 40 mg PO DAILY [facility] Last Admin: 06/08/17 10:17 Dose: 40 mg Saccharomyces Boulardii (Florastor) 250 mg PO BID [facility] Last Admin: 06/08/17 17:34 Dose: 250 mg Results - Vital Signs Recent Vital Signs: Last Vital Signs Temp 98.5 F 06/08/17 20:00 Pulse 89 06/08/17 21:02 Resp 27 H 06/08/17 21:02 BP 121/66 06/08/17 21:02 Pulse Ox 94 L 06/08/17 21:02 - Labs Result Diagrams: 06/08/17 09:29 06/08/17 06:42 Labs: Laboratory Results - last 24 hr 06/08/17 06/08/17 06/08/17 06:42 06:42 06:42 WBC RBC Hgb Hct MCV MCH MCHC RDW Plt Count MPV Neut % (Auto) Lymph % (Auto) [place] % (Auto) Eos % (Auto) Baso % (Auto) Neut # Lymph # [place] # Eos # Baso # Neutrophils % (Manual) Band Neutrophils % Lymphocytes % (Manual) Monocytes % (Manual) Eosinophils % (Manual) Platelet Estimate Polychromasia Hypochromasia (manual) Anisocytosis (manual) Sodium 141 Potassium 4.2 Chloride 115 H Carbon Dioxide 19 L Anion Gap 11 BUN 9 Creatinine 0.7 Est GFR ( Amer) > 60 Est GFR (Non-Af Amer) > 60 Random Glucose 107 H Calcium 7.8 L Phosphorus 3.4 Magnesium 1.8 Iron 10 L TIBC 228 L % Saturation 4.385 L Total Bilirubin 0.5 AST 46 H D ALT 65 H D Alkaline Phosphatase 78 Total Protein 6.1 L Albumin 3.1 L Globulin 3.0 Albumin/Globulin Ratio 1.0 Free T4 1.14 TSH 3rd Generation 0.29 L 06/08/17 09:29 WBC 20.7 H D RBC 3.67 L Hgb 9.6 L Hct 30.0 L MCV 81.8 MCH 26.2 L MCHC 32.1 L RDW 20.7 H Plt Count 212 MPV 8.1 Neut % (Auto) 92.7 H Lymph % (Auto) 3.2 L [place] % (Auto) 2.7 Eos % (Auto) 1.2 Baso % (Auto) 0.2 Neut # 19.2 H Lymph # 0.7 L [place] # 0.6 Eos # 0.2 Baso # 0.0 Neutrophils % (Manual) 63 Band Neutrophils % 30 H* Lymphocytes % (Manual) 3 L Monocytes % (Manual) 3 Eosinophils % (Manual) 1 Platelet Estimate Normal Polychromasia Slight Hypochromasia (manual) Slight Anisocytosis (manual) Slight Sodium Potassium Chloride Carbon Dioxide Anion Gap BUN Creatinine Est GFR ( Amer) Est GFR (Non-Af Amer) Random Glucose Calcium Phosphorus Magnesium Iron TIBC % Saturation Total Bilirubin AST ALT Alkaline Phosphatase Total Protein Albumin Globulin Albumin/Globulin Ratio Free T4 TSH 3rd Generation
--- NOTE | 2017-06-08 21:44 | CP.PCM.CON ---
Past Patient History - Past Medical History & Family History Past Medical History?: No - Past Social History Smoking Status: Never Smoked Chewing Tobacco Use: No Cigar Use: No Alcohol: None Drugs: Denies Home Situation {Lives}: With Family - CARDIAC Hx Cardiac Disorders: No - PULMONARY Hx Respiratory Disorders: No - NEUROLOGICAL Hx Neurological Disorder: No - HEENT Hx HEENT Problems: No - RENAL Hx Chronic Kidney Disease: No - ENDOCRINE/METABOLIC Hx Endocrine Disorders: No - HEMATOLOGICAL/ONCOLOGICAL Hx Blood Disorders: No - INTEGUMENTARY Hx Dermatological Problems: No - MUSCULOSKELETAL/RHEUMATOLOGICAL Hx Musculoskeletal Disorders: No - GASTROINTESTINAL Hx Gastrointestinal Disorders: No - GENITOURINARY/GYNECOLOGICAL Hx Genitourinary Disorders: No - PSYCHIATRIC Hx Psychophysiologic Disorder: No Hx Substance Use: No - SURGICAL HISTORY Hx Surgeries: No Other/Comment: PT DENIES - ANESTHESIA Hx Anesthesia: No Meds Allergies/Adverse Reactions: Allergies Allergy/AdvReac Type Severity Reaction Status Date / Time No Known Allergies Allergy Verified 06/07/17 12:17 - Medications Medications: Current Medications Acetaminophen (Tylenol 325mg Tab) 650 mg PO Q6 PRN PRN Reason: Headache Last Admin: 06/08/17 12:19 Dose: 650 mg Docusate Sodium (Colace) 100 mg PO BID [facility] Last Admin: 06/08/17 17:35 Dose: 100 mg Ferrous Sulfate (Feosol) 325 mg PO BID [facility] Last Admin: 06/08/17 17:35 Dose: 325 mg Heparin Sodium (Porcine) (Heparin) 5,000 units SC Q12 [facility] Last Admin: 06/08/17 10:17 Dose: 5,000 units Dopamine HCl/Dextrose (Dopamine 400mg/250ml D5w) 400 mg in 250 mls @ 10.313 mls /hr IV .Q24H PRN; Protocol; 5 MCG/KG/MIN PRN Reason: TITRATE PER MD ORDER Last Titration: 06/08/17 17:00 Dose: 4.84 mcg/kg/min, 10 mls/hr Meropenem 1 gm/ Sodium (Chloride) 100 mls @ 200 mls/hr IVPB Q8H [facility] Last Admin: 06/08/17 20:50 Dose: 200 mls/hr Sodium Chloride (Sodium Chloride 0.9%) 1,000 mls @ 150 mls/hr IV .Q6H40M [facility] Last Admin: 06/08/17 19:38 Dose: 150 mls/hr Gentamicin Sulfate/Sodium Chloride (Gentamicin Iv 80 Mg Premix) 80 mg in 100 mls @ 100 mls/hr IVPB Q8H [facility] Last Admin: 06/08/17 14:23 Dose: 100 mls/hr Morphine Sulfate (Morphine) 2 mg IVP Q4 PRN PRN Reason: Pain, moderate (4-7) Last Admin: 06/08/17 01:00 Dose: 2 mg Morphine Sulfate (Morphine) 4 mg IVP Q4 PRN PRN Reason: Pain, severe (8-10) Ondansetron HCl (Zofran Inj) 4 mg IVP Q6H PRN PRN Reason: Nausea/Vomiting Last Admin: 06/08/17 18:49 Dose: 4 mg Pantoprazole Sodium (Protonix Ec Tab) 40 mg PO DAILY [facility] Last Admin: 06/08/17 10:17 Dose: 40 mg Saccharomyces Boulardii (Florastor) 250 mg PO BID [facility] Last Admin: 06/08/17 17:34 Dose: 250 mg Results - Vital Signs Recent Vital Signs: Last Vital Signs Temp 98.5 F 06/08/17 20:00 Pulse 89 06/08/17 21:02 Resp 27 H 06/08/17 21:02 BP 121/66 06/08/17 21:02 Pulse Ox 94 L 06/08/17 21:02 - Labs Result Diagrams: 06/08/17 09:29 06/08/17 06:42 Labs: Laboratory Results - last 24 hr 06/08/17 06/08/17 06/08/17 06:42 06:42 06:42 WBC RBC Hgb Hct MCV MCH MCHC RDW Plt Count MPV Neut % (Auto) Lymph % (Auto) [place] % (Auto) Eos % (Auto) Baso % (Auto) Neut # Lymph # [place] # Eos # Baso # Neutrophils % (Manual) Band Neutrophils % Lymphocytes % (Manual) Monocytes % (Manual) Eosinophils % (Manual) Platelet Estimate Polychromasia Hypochromasia (manual) Anisocytosis (manual) Sodium 141 Potassium 4.2 Chloride 115 H Carbon Dioxide 19 L Anion Gap 11 BUN 9 Creatinine 0.7 Est GFR ( Amer) > 60 Est GFR (Non-Af Amer) > 60 Random Glucose 107 H Calcium 7.8 L Phosphorus 3.4 Magnesium 1.8 Iron 10 L TIBC 228 L % Saturation 4.385 L Total Bilirubin 0.5 AST 46 H D ALT 65 H D Alkaline Phosphatase 78 Total Protein 6.1 L Albumin 3.1 L Globulin 3.0 Albumin/Globulin Ratio 1.0 Free T4 1.14 TSH 3rd Generation 0.29 L 06/08/17 09:29 WBC 20.7 H D RBC 3.67 L Hgb 9.6 L Hct 30.0 L MCV 81.8 MCH 26.2 L MCHC 32.1 L RDW 20.7 H Plt Count 212 MPV 8.1 Neut % (Auto) 92.7 H Lymph % (Auto) 3.2 L [place] % (Auto) 2.7 Eos % (Auto) 1.2 Baso % (Auto) 0.2 Neut # 19.2 H Lymph # 0.7 L [place] # 0.6 Eos # 0.2 Baso # 0.0 Neutrophils % (Manual) 63 Band Neutrophils % 30 H* Lymphocytes % (Manual) 3 L Monocytes % (Manual) 3 Eosinophils % (Manual) 1 Platelet Estimate Normal Polychromasia Slight Hypochromasia (manual) Slight Anisocytosis (manual) Slight Sodium Potassium Chloride Carbon Dioxide Anion Gap BUN Creatinine Est GFR ( Amer) Est GFR (Non-Af Amer) Random Glucose Calcium Phosphorus Magnesium Iron TIBC % Saturation Total Bilirubin AST ALT Alkaline Phosphatase Total Protein Albumin Globulin Albumin/Globulin Ratio Free T4 TSH 3rd Generation
[2017-06-09] MEDS: Sodium Chloride 0.9% 1,000 ML IV SCH ×5 (00:20→20:15)
[2017-06-09] MEDS: Meropenem 1 GM in Sodium Chloride 0.9% 100 ML IVPB SCH ×3 (04:46→20:13)
[2017-06-09 04:59] LABS: BASO # 0.1 K/uL (0.0-0.2); BASO % 0.3 % (0.0-2.0); EOS # 0.5 K/uL (0.0-0.7); EOS % 2.6 % (0.0-4.0); HEMATOCRIT 28.3 % (34.0-47.0); LYMPH # 1.1 K/uL (1.0-4.3); LYMPH % 6.2 % (20.0-40.0); MEAN CELL VOLUME 80.5 fL (81.0-99.0); MEAN CORPUSCULAR HEMOGLOBIN 26.4 pg (27.0-31.0); MEAN CORPUSCULAR HGB CONC 32.8 g/dL (33.0-37.0); MEAN PLATELET VOLUME 7.9 fL (7.2-11.7); MONO # 0.6 K/uL (0.0-0.8); MONO % 3.5 % (0.0-10.0); PLATELET COUNT 179 K/uL (130-400); RED CELL DISTRIBUTION WIDTH 20.3 % (11.5-14.5); WHITE BLOOD COUNT 18.5 K/uL (4.8-10.8)
[2017-06-09 05:21] LABS: CHLORIDE 112 mmol/L (98-107); SODIUM 139 mmol/L (132-148)
[2017-06-09 05:22] LABS: POTASSIUM 3.5 mmol/L (3.6-5.2)
[2017-06-09 05:23] LABS: GFR AFRICAN-AMERICAN > 60
[2017-06-09 05:24] LABS: ALB/GLOB RATIO 0.9 (1.0-2.1); ALKALINE PHOSPHATASE 70 U/L (38-126); ALT/SGPT 54 U/L (9-52); AST/SGOT 28 U/L (14-36); BILIRUBIN,TOTAL 0.4 mg/dL (0.2-1.3); BLOOD UREA NITROGEN 8 mg/dL (7-17); CARBON DIOXIDE 20 mmol/L (22-30); GLUCOSE,RANDOM 81 mg/dL (65-105); PHOSPHOROUS 2.1 mg/dL (2.5-4.5); TOTAL PROTEIN 5.9 g/dL (6.3-8.3)
[2017-06-09 05:25] LABS: CALCIUM 8.5 mg/dl (8.6-10.4); MAGNESIUM 1.8 mg/dL (1.6-2.3)
[2017-06-09 05:51] LABS: BASOPHIL 1 % (0-2); EOSINOPHIL 4 % (0-4); NEUTROPHIL 76 % (50-75); TOTAL CELLS COUNTED 100
[2017-06-09] MEDS: Gentamicin 80 mg in 0.9% NS 80 MG/100 ML BAG IVPB SCH (06:38)
--- NOTE | 2017-06-09 07:48 | CP.CCUPN ---
<Malcolm Bethea Geno - Last Filed: 06/09/17 18:59> CCU Subjective - Physician Review Subjective (Free Text): Patient seen and examined at bedside with daughter by her side. No acute distress, still c/o of left flank and left groin pain. Tolerating diet. Moody in place with normal urinary output. Denies fever, nausea, chest pain, shortness of breath, headache, diarrhea, constipation. 06/08/17 12:03 CCU Objective - Vital Signs / Intake & Output Vital Signs (Last 4 hours): Vital Signs Pulse Resp BP Pulse Ox 06/09/17 07:02 83 27 H 121/70 94 L 06/09/17 07:00 85 27 H 95 06/09/17 06:03 87 24 114/69 97 06/09/17 06:00 76 21 95 06/09/17 05:02 86 27 H 118/72 95 06/09/17 05:00 93 H 25 H 94 L 06/09/17 04:02 83 21 117/79 94 L 06/09/17 04:00 80 49 H 94 L Intake and Output (Last 8hrs): Intake & Output 06/08/17 06/09/17 06/09/17 22:59 06:59 14:59 Intake Total 1525.0 1173 100 Output Total 801 1900 Balance 724.0 -727 100 Intake: IV 105 8 Intake, IV Amount 1180.0 1165 100 Right Antecubital 25.0 Right Distal Port 55 15 Internal Jugular Right Hand 300 Right Proximal Port 800 1150 100 Internal Jugular Oral 240 Output: Urine 800 1900 Urethral (Moody) 800 1900 Stool 1 - Physical Exam Head: Positive for: Atraumatic Pupils: Positive for: PERRL Extroacular Muscles: Positive for: EOMI Mouth: Positive for: Moist Mucous Membranes, Other (Upper and lower dentures) Neck: Positive for: Normal Range of Motion Respiratory/Chest: Positive for: Clear to Auscultation. Negative for: Wheezes, Rales Cardiovascular: Positive for: Regular Rate and Rhythm, Normal S1, S2. Negative for: Murmurs Abdomen: Positive for: Tenderness (Pain to the LLQ on palpation, no guarding, no rebound.), Normal Bowel Sounds. Negative for: Distention Upper Extremity: Positive for: Normal Inspection. Negative for: Edema Lower Extremity: Positive for: Normal Inspection. Negative for: Edema Neurological: Positive for: Speech Normal Skin: Positive for: Warm, Dry, Normal Color. Negative for: Rashes Psychiatric: Positive for: Alert, Oriented x 3 - Medications Active Medications: Active Medications Generic Name Dose Route Start Last Admin Trade Name Freq PRN Reason Stop Dose Admin Acetaminophen 650 mg 06/08/17 12:14 06/09/17 00:15 Tylenol 325mg Tab PO 650 mg Q6 PRN Administration Headache Docusate Sodium 100 mg 06/08/17 10:30 06/08/17 17:35 Colace PO 100 mg BID ANANT Administration Ferrous Sulfate 325 mg 06/08/17 18:00 06/08/17 17:35 Feosol PO 325 mg BID ANANT Administration Heparin Sodium (Porcine) 5,000 units 06/07/17 22:00 06/08/17 21:48 Heparin SC 5,000 units Q12 ANANT Administration Dopamine HCl/Dextrose 400 mg in 250 mls @ 10.313 mls/hr 06/07/17 18:25 02:04 Dopamine 400mg/250ml D5w IV 0 mcg/kg/min .Q24H PRN 0 mls/hr TITRATE PER MD ORDER Titration Protocol 5 MCG/KG/MIN Meropenem 1 gm/ Sodium 100 mls @ 200 mls/hr 06/07/17 20:00 06/09/17 04:46 Chloride IVPB 200 mls/hr Q8H ANANT Administration Sodium Chloride 1,000 mls @ 150 mls/hr 06/07/17 21:15 06/09/17 06:47 Sodium Chloride 0.9% IV Not Given .Q6H40M ANANT Gentamicin Sulfate/Sodium Chloride 80 mg in 100 mls @ 100 mls/hr 06/08/17 14: 00 06/09/17 06:38 Gentamicin Iv 80 Mg Premix IVPB 100 mls/hr Q8H ANANT Administration Morphine Sulfate 2 mg 06/08/17 00:27 06/08/17 01:00 Morphine IVP 2 mg Q4 PRN Administration Pain, moderate (4-7) Morphine Sulfate 4 mg 06/08/17 00:27 Morphine IVP Q4 PRN Pain, severe (8-10) Ondansetron HCl 4 mg 06/08/17 18:45 06/08/17 18:49 Zofran Inj IVP 4 mg Q6H PRN Administration Nausea/Vomiting Pantoprazole Sodium 40 mg 06/08/17 10:00 06/08/17 10:17 Protonix Ec Tab PO 40 mg DAILY ANANT Administration Saccharomyces Boulardii 250 mg 06/08/17 18:00 06/08/17 17:34 Florastor PO 250 mg BID ANANT Administration - Patient Studies Lab Studies: Lab Studies 06/09/17 06/09/17 06/09/17 Range/Units 04:57 04:57 04:57 WBC 18.5 H (4.8-10.8) K/uL RBC 3.52 L (3.80-5.20) Mil/uL Hgb 9.3 L (11.0-16.0) g/dL Hct 28.3 L (34.0-47.0) % MCV 80.5 L (81.0-99.0) fL MCH 26.4 L (27.0-31.0) pg MCHC 32.8 L (33.0-37.0) g/dL RDW 20.3 H (11.5-14.5) % Plt Count 179 (130-400) K/uL MPV 7.9 (7.2-11.7) fL Neut % (Auto) 87.4 H (50.0-75.0) % Lymph % (Auto) 6.2 L (20.0-40.0) % [place] % (Auto) 3.5 (0.0-10.0) % Eos % (Auto) 2.6 (0.0-4.0) % Baso % (Auto) 0.3 (0.0-2.0) % Neut # 16.1 H (1.8-7.0) K/uL Lymph # 1.1 (1.0-4.3) K/uL [place] # 0.6 (0.0-0.8) K/uL Eos # 0.5 (0.0-0.7) K/uL Baso # 0.1 (0.0-0.2) K/uL Neutrophils % (Manual) 76 H (50-75) % Band Neutrophils % 9 H (0-2) % Lymphocytes % (Manual) 7 L (20-40) % Monocytes % (Manual) 3 (0-10) % Eosinophils % (Manual) 4 (0-4) % Basophils % (Manual) 1 (0-2) % Platelet Estimate Normal (NORMAL) Polychromasia Hypochromasia (manual) Poikilocytosis (manual Slight Anisocytosis (manual) Slight Sodium 139 (132-148) mmol/L Potassium 3.5 L (3.6-5.2) mmol/L Chloride 112 H (98-107) mmol/L Carbon Dioxide 20 L (22-30) mmol/L Anion Gap 11 (10-20) BUN 8 (7-17) mg/dL Creatinine 0.6 L (0.7-1.2) MG/DL Est GFR ( Amer) > 60 Est GFR (Non-Af Amer) > 60 Random Glucose 81 (65-105) mg/dL Calcium 8.5 L (8.6-10.4) mg/dl Phosphorus 2.1 L (2.5-4.5) mg/dL Magnesium 1.8 (1.6-2.3) mg/dL Iron (37-170) ug/dL TIBC (250-450) ug/dL % Saturation (20-55) Total Bilirubin 0.4 (0.2-1.3) mg/dL AST 28 (14-36) U/L ALT 54 H (9-52) U/L Alkaline Phosphatase 70 (38-126) U/L Total Protein 5.9 L (6.3-8.3) g/dL Albumin 2.8 L (3.5-5.0) g/dL Globulin 3.1 (2.2-3.9) gm/dL Albumin/Globulin Ratio 0.9 L (1.0-2.1) Free T4 (0.78-2.19) ng/dL TSH 3rd Generation (0.46-4.68) mIU/L Stool Occult Blood (NEGATIVE) Gentamicin Trough 1.2 H (0.0-0.9) ug/mL 06/08/17 06/08/17 06/08/17 Range/Units 22:46 09:29 06:42 WBC 20.7 H D (4.8-10.8) K/uL RBC 3.67 L (3.80-5.20) Mil/uL Hgb 9.6 L (11.0-16.0) g/dL Hct 30.0 L (34.0-47.0) % MCV 81.8 (81.0-99.0) fL MCH 26.2 L (27.0-31.0) pg MCHC 32.1 L (33.0-37.0) g/dL RDW 20.7 H (11.5-14.5) % Plt Count 212 (130-400) K/uL MPV 8.1 (7.2-11.7) fL Neut % (Auto) 92.7 H (50.0-75.0) % Lymph % (Auto) 3.2 L (20.0-40.0) % [place] % (Auto) 2.7 (0.0-10.0) % Eos % (Auto) 1.2 (0.0-4.0) % Baso % (Auto) 0.2 (0.0-2.0) % Neut # 19.2 H (1.8-7.0) K/uL Lymph # 0.7 L (1.0-4.3) K/uL [place] # 0.6 (0.0-0.8) K/uL Eos # 0.2 (0.0-0.7) K/uL Baso # 0.0 (0.0-0.2) K/uL Neutrophils % (Manual) 63 (50-75) % Band Neutrophils % 30 H* (0-2) % Lymphocytes % (Manual) 3 L (20-40) % Monocytes % (Manual) 3 (0-10) % Eosinophils % (Manual) 1 (0-4) % Basophils % (Manual) (0-2) % Platelet Estimate Normal (NORMAL) Polychromasia Slight Hypochromasia (manual) Slight Poikilocytosis (manual Anisocytosis (manual) Slight Sodium (132-148) mmol/L Potassium (3.6-5.2) mmol/L Chloride (98-107) mmol/L Carbon Dioxide (22-30) mmol/L Anion Gap (10-20) BUN (7-17) mg/dL Creatinine (0.7-1.2) MG/DL Est GFR ( Amer) Est GFR (Non-Af Amer) Random Glucose (65-105) mg/dL Calcium (8.6-10.4) mg/dl Phosphorus (2.5-4.5) mg/dL Magnesium (1.6-2.3) mg/dL Iron 10 L (37-170) ug/dL TIBC 228 L (250-450) ug/dL % Saturation 4.385 L (20-55) Total Bilirubin (0.2-1.3) mg/dL AST (14-36) U/L ALT (9-52) U/L Alkaline Phosphatase (38-126) U/L Total Protein (6.3-8.3) g/dL Albumin (3.5-5.0) g/dL Globulin (2.2-3.9) gm/dL Albumin/Globulin Ratio (1.0-2.1) Free T4 (0.78-2.19) ng/dL TSH 3rd Generation (0.46-4.68) mIU/L Stool Occult Blood Positive H (NEGATIVE) Gentamicin Trough (0.0-0.9) ug/mL 06/08/17 06/08/17 Range/Units 06:42 06:42 WBC (4.8-10.8) K/uL RBC (3.80-5.20) Mil/uL Hgb (11.0-16.0) g/dL Hct (34.0-47.0) % MCV (81.0-99.0) fL MCH (27.0-31.0) pg MCHC (33.0-37.0) g/dL RDW (11.5-14.5) % Plt Count (130-400) K/uL MPV (7.2-11.7) fL Neut % (Auto) (50.0-75.0) % Lymph % (Auto) (20.0-40.0) % [place] % (Auto) (0.0-10.0) % Eos % (Auto) (0.0-4.0) % Baso % (Auto) (0.0-2.0) % Neut # (1.8-7.0) K/uL Lymph # (1.0-4.3) K/uL [place] # (0.0-0.8) K/uL Eos # (0.0-0.7) K/uL Baso # (0.0-0.2) K/uL Neutrophils % (Manual) (50-75) % Band Neutrophils % (0-2) % Lymphocytes % (Manual) (20-40) % Monocytes % (Manual) (0-10) % Eosinophils % (Manual) (0-4) % Basophils % (Manual) (0-2) % Platelet Estimate (NORMAL) Polychromasia Hypochromasia (manual) Poikilocytosis (manual Anisocytosis (manual) Sodium (132-148) mmol/L Potassium (3.6-5.2) mmol/L Chloride (98-107) mmol/L Carbon Dioxide (22-30) mmol/L Anion Gap (10-20) BUN (7-17) mg/dL Creatinine (0.7-1.2) MG/DL Est GFR ( Amer) Est GFR (Non-Af Amer) Random Glucose (65-105) mg/dL Calcium (8.6-10.4) mg/dl Phosphorus (2.5-4.5) mg/dL Magnesium (1.6-2.3) mg/dL Iron (37-170) ug/dL TIBC (250-450) ug/dL % Saturation (20-55) Total Bilirubin (0.2-1.3) mg/dL AST (14-36) U/L ALT (9-52) U/L Alkaline Phosphatase (38-126) U/L Total Protein (6.3-8.3) g/dL Albumin (3.5-5.0) g/dL Globulin (2.2-3.9) gm/dL Albumin/Globulin Ratio (1.0-2.1) Free T4 1.14 (0.78-2.19) ng/dL TSH 3rd Generation 0.29 L (0.46-4.68) mIU/L Stool Occult Blood (NEGATIVE) Gentamicin Trough (0.0-0.9) ug/mL Laboratory Results - last 24 hr 06/08/17 06/08/17 06/08/17 06:42 06:42 06:42 WBC RBC Hgb Hct MCV MCH MCHC RDW Plt Count MPV Neut % (Auto) Lymph % (Auto) [place] % (Auto) Eos % (Auto) Baso % (Auto) Neut # Lymph # [place] # Eos # Baso # Neutrophils % (Manual) Band Neutrophils % Lymphocytes % (Manual) Monocytes % (Manual) Eosinophils % (Manual) Basophils % (Manual) Platelet Estimate Polychromasia Hypochromasia (manual) Poikilocytosis (manual Anisocytosis (manual) Sodium Potassium Chloride Carbon Dioxide Anion Gap BUN Creatinine Est GFR ( Amer) Est GFR (Non-Af Amer) Random Glucose Calcium Phosphorus Magnesium Iron 10 L TIBC 228 L % Saturation 4.385 L Total Bilirubin AST ALT Alkaline Phosphatase Total Protein Albumin Globulin Albumin/Globulin Ratio Free T4 1.14 TSH 3rd Generation 0.29 L Stool Occult Blood Gentamicin Trough 06/08/17 06/08/17 06/09/17 09:29 22:46 04:57 WBC 20.7 H D 18.5 H RBC 3.67 L 3.52 L Hgb 9.6 L 9.3 L Hct 30.0 L 28.3 L MCV 81.8 80.5 L MCH 26.2 L 26.4 L MCHC 32.1 L 32.8 L RDW 20.7 H 20.3 H Plt Count 212 179 MPV 8.1 7.9 Neut % (Auto) 92.7 H 87.4 H Lymph % (Auto) 3.2 L 6.2 L [place] % (Auto) 2.7 3.5 Eos % (Auto) 1.2 2.6 Baso % (Auto) 0.2 0.3 Neut # 19.2 H 16.1 H Lymph # 0.7 L 1.1 [place] # 0.6 0.6 Eos # 0.2 0.5 Baso # 0.0 0.1 Neutrophils % (Manual) 63 76 H Band Neutrophils % 30 H* 9 H Lymphocytes % (Manual) 3 L 7 L Monocytes % (Manual) 3 3 Eosinophils % (Manual) 1 4 Basophils % (Manual) 1 Platelet Estimate Normal Normal Polychromasia Slight Hypochromasia (manual) Slight Poikilocytosis (manual Slight Anisocytosis (manual) Slight Slight Sodium Potassium Chloride Carbon Dioxide Anion Gap BUN Creatinine Est GFR ( Amer) Est GFR (Non-Af Amer) Random Glucose Calcium Phosphorus Magnesium Iron TIBC % Saturation Total Bilirubin AST ALT Alkaline Phosphatase Total Protein Albumin Globulin Albumin/Globulin Ratio Free T4 TSH 3rd Generation Stool Occult Blood Positive H Gentamicin Trough 06/09/17 06/09/17 04:57 04:57 WBC RBC Hgb Hct MCV MCH MCHC RDW Plt Count MPV Neut % (Auto) Lymph % (Auto) [place] % (Auto) Eos % (Auto) Baso % (Auto) Neut # Lymph # [place] # Eos # Baso # Neutrophils % (Manual) Band Neutrophils % Lymphocytes % (Manual) Monocytes % (Manual) Eosinophils % (Manual) Basophils % (Manual) Platelet Estimate Polychromasia Hypochromasia (manual) Poikilocytosis (manual Anisocytosis (manual) Sodium 139 Potassium 3.5 L Chloride 112 H Carbon Dioxide 20 L Anion Gap 11 BUN 8 Creatinine 0.6 L Est GFR ( Amer) > 60 Est GFR (Non-Af Amer) > 60 Random Glucose 81 Calcium 8.5 L Phosphorus 2.1 L Magnesium 1.8 Iron TIBC % Saturation Total Bilirubin 0.4 AST 28 ALT 54 H Alkaline Phosphatase 70 Total Protein 5.9 L Albumin 2.8 L Globulin 3.1 Albumin/Globulin Ratio 0.9 L Free T4 TSH 3rd Generation Stool Occult Blood Gentamicin Trough 1.2 H Fingerstick Blood Sugar Results: 87 Critical Care Progress Note - Nutrition Nutrition: Nutrition Category Date Time Status Regular Diet [DIET] Diets 06/07/17 Lunch Active Assessment/Plan - Assessment and Plan (Free Text) Assessment: 52 year old female with (PMHx of Nephrolithiasis) who was found to be in Septic Shock Secondary to UTI/Left Pyelonephritis Secondary to Left Ureteral Stone. #. Pyelonephritis #. Ureterolithiasis #. Septic Shock #. Anemia #. Leukopenia Plan: 52 years old female with past medical hx of nephrolithiasis who comes with one day of sudden unset of severe left flank pain, radiating anteriorly and to the left groin, associated with dysuria, urinary urgency incontinence, nausea, chills and subjective fever. #. Pyelonephritis - leukocytosis/bandemia improving - blood culture positive for gram negative rods - Urine culture positive for gram negative rods - Consult Dr Marino ID - Rocephin and Gentamicin given in ED. Patient continued on Meropenem - IV Fluids - Pain management #. Ureterolithiasis with Hydroureter - s/p Left Pyelogram Retrograde Cystoscopy with Left Ureteral Stent insertion 06/07/17 - CT results noted: 4 mm calcification at the distal left ureter at the level of the UVJ with moderate proximal hydroureter nephrosis. Left perinephric fluid/ stranding. - Consult Urology Dr. Hines - Pain management #.Septic Shock - ID on consult - Patient received 4.5 liters of NS in the ED - Continue IV Fluid 150mls/hr - Continue Antibiotics - Dopamine IV Titrate to MAP >65 via triple lumen catheter central line #. Anemia - Iron Panel - Follow HB - ferrous sulfate 325mg po bid #. Electrolyte Imbalance with Hypomagnesemia and Hypophosphatemia - Magnesium given - Potassium Phosphate IVPB - Follow Magnesium and Phosphorus levels #. Stress ulcer Prophylaxis with Pantoprazole #.DVT Prophylaxis with SCD, heparin SC 5000u sc q12 <John Hogan - Last Filed: 06/14/17 11:55> CCU Objective - Patient Studies Lab Studies: Microbiology Studies 06/10/17 04:00 Blood Culture - Preliminary Blood-Venous NO GROWTH AFTER 4 DAYS 06/10/17 08:24 Blood Culture - Preliminary Blood-Venous NO GROWTH AFTER 4 DAYS Critical Care Progress Note - Nutrition Nutrition: Nutrition Category Date Time Status Regular Diet [DIET] Diets 06/07/17 Lunch Active Attending/Attestation - Attestation I have personally seen and examined this patient.: Yes I have fully participated in the care of the patient.: Yes I have reviewed all pertinent clinical information: Yes Notes (Text): Today: June The patient was Seen/interviewed and examined by me at the bedside during ICU round, Medical records reviewed and Management issues were discussed and formulated with the house staff. I have reviewed all the relevant clinical, laboratory, hemodynamic, radiographic data and medications Pain issues, skin care, head of the bed elevation, glycemic control were addressed. I concur with resident's assessment and plan of care as transcribed in Dr. Bethea note.
[2017-06-09] MEDS: Saccharomyces Boulardi 250 mg Cap PO SCH ×2 (09:58→17:08)
[2017-06-09] MEDS ORDERED: Influenza Virus Vaccine (Afluria Inactive dont use ) IM ONE (10:00)
[2017-06-09] MEDS ORDERED: Pneumococcal 23-Valent Vaccine IM ONE (10:00)
--- NOTE | 2017-06-09 10:02 | CON ---
DATE: 06/08/2017 HISTORY OF PRESENT ILLNESS: The patient came in with abdominal pain and fever, yesterday she was seen. A 52-year-old female, who has had history of nephrolithiasis 15 years ago, presented with fever and suprapubic tenderness, which started yesterday and it was not getting better and she was admitted with fever, nausea, suprapubic pain, and also was found to have pyelonephritis. She has had history of stones 15 years ago, which was removed, she said to me. PAST SURGICAL HISTORY: Otherwise negative. FAMILY HISTORY: Significant for grandmother having UTIs, but no history of stones, told to us. SOCIAL HISTORY: Negative. ALLERGIES: SHE IS NOT ALLERGIC TO ANY MEDICINE. MEDICATIONS: She was on meropenem and dopamine at this time. Tylenol, Colace, ferrous sulfate. We have added gentamicin as blood cultures just came back gram-negative rods and she is on meropenem 1 g q.8 hours, and she is on morphine, Zofran, and Protonix. She is also on Bacid and she is on IV fluids at 150 mL per hour. She went for a stent placement yesterday, as she was having hypotensive and groggy and was on vasopressors and stent was placed to give her immediate relief and Code Sepsis was called last night and she was given IV fluids boluses and she remained hypotensive and tachycardic, hence she was placed in the ICU. I was involved, they called me for a consult and she got meropenem and today, the cultures have come back positive for gram-negative rods in the blood as well as in the urine. She is still in ICU and her white count is 20 with severe bandemia today; however, she is feeling slightly better. REVIEW OF SYSTEMS: There were no other complaints except for having abdominal pain and mostly was on the left side, then went to the right side and suprapubic pain and she also complained of fevers. Denied any ear, nose, and throat problems and denied any chest pain. She was not short of breath. She did have abdominal pain, nausea, but did not have any vomiting or diarrhea and she did have dysuria, flank pain, and urgency when she came in, but no bleeding in the urine and denied any back pain. Neurologically, she has no problems. Surgical, she denied. Skin, no problems. PHYSICAL EXAMINATION VITAL SIGNS: I find her temperature, I saw her around at 6:00 and she has been afebrile, temperature 98.1, pulse of 94, blood pressure 112/69, respirations are 28 now. HEENT: Atraumatic and normocephalic. Pupils are reacting to light, eyes movements are unremarkable. Mild pallor present. Tongue is moist. NECK: Supple. LUNGS: Clear. No crackles or rales present. HEART: S1 and S2 regular. ABDOMEN: Soft, nontender. No guarding. No rigidity present. Mild tenderness in the left side. EXTREMITIES: Have no edema, clubbing, or cyanosis. LABORATORY DATA: Labs are noted. White count is 20.7; hemoglobin 9.6; hematocrit 30; platelet count is 212, it was for yesterday and platelet was 246, bands are 30. She does have blood cultures positive. ABG is noted. Sodium is 141, potassium 4.2, chloride 115, CO2 is 19, and phosphorus was also low yesterday 1.3, magnesium 1.2, now it is better. Her liver enzymes are slightly elevated. Blood cultures x2 are gram-negative rods and urine also has gram-negative rods, probably the same bacteria. She had abdominal CT yesterday and abdominal CT showed 4 mm calcification of distal left ureter at the level of UPJ with moderate proximal hydroureteronephrosis, left perinephric fluid stranding. No hydronephrosis or obstructing stone on the right; 8 mm 2 small calculi on the right, 8 mm too small to characterize. Right renal hypodensity, statistically like a cyst, I do not what that means. They said, there was a 4 mm on the left UPJ junction with moderate hydroureteronephrosis and then now she is status post stent. She also had mild gallbladder thickening with some fatty cholecystic edema. No calcified gallstones evident. Right upper quadrant ultrasound was suggested and there is also diverticulosis without evidence of acute diverticulitis. So there are multiple problems, but I think acute is the hydroureter with a complicated UTI, as stone was present with obstruction and now she has got a stent and we will continue Merrem as well as gentamicin, IV fluids, pain medications per technical support assistant and we will follow. X-ray showed medial right basilar atelectasis or infiltrate minimal, which is also covered with these antibiotics at this time. Since she has cultures positive, she may need 2 weeks of IV antibiotics, and depending on what sensitivity is and how she is stable, we will follow. Jerry Marino MD
--- NOTE | 2017-06-09 13:24 | CP.PCM.PN ---
Subjective - Date & Time of Evaluation Date of Evaluation: 06/09/17 Time of Evaluation: 13:10 - Subjective Subjective: Hospitalist Progress Note Patient was seen and examined at 1:10 PM 06/09/17 52 year old female with (PMHx of Nephrolithiasis) who was found to be in Septic Shock Secondary to UTI/Left Pyelonephritis Secondary to Left Ureteral Stone. Patient underwent Left Pyelogram Retrograde Cystoscopy with Left Ureteral Stent insertion on the night of 06/07/17. She was then admitted to the ICU for further treatment. Please see Assessment and Plans below for further details. Currently upon FULL ROS: Still with sharp Left Flank pain that comes and goes however it is less in intensity Bifrontal pouding headache but NO visual changes: this has resolved today Moved her bowels twice on 06/08/17 after my exam but no bowel movement today Feels week and without energy NO other complaints upon FULL ROS Exam: General: AAOx3, NAD HEENT: NCA, EOMI, PERRLA, NO cervical/supraclavicular/submandibular lymphadenopathy, NO pharyngeal erythema/exudate, Mucous Membranes are moist, Nasal Turbinates are nonedematous/nonerythematous Cardio: NS1 and NS2, NO M/R/G Respiratory: CTA B/L, NO R/R/W GI: BSx4, Soft, NT, ND, NO HSM, NO guarding/rebound tenderness, Left CVA Tenderness still present Ext: NO edema, Pulses are strong and equal, Capillary Refill is 2 seconds Neuro: CN II through XII are grossly intact Assessment and Plan (Free Text) 1). Septic Shock secondary to UTI/Pyelonephritis Upon presentation in ER: Patient with initial fever of 102.8, tachycardic, hypotensive not responding to fluids despite nearly 5 L bolus. Consult to TEZ Marino Meropenem 1 gm IV Q8H (06/07/17) UA positive for UTI Urine Culture 06/07/17 showed E. coli sensitive to Meropenem Blood Culture 06/07/17 showed Gram Negative Rods Urine Culture 06/07/17 preliminary shows Gram Negative Rods Triple Lumen Catheter placed by ICU Team on 06/08/17 Patient no longer requiring pressure support and the Dopamine was discontinued 2). Left Ureter Nephrolithiasis CT Abdomen/Pelvis: 4 mm calcification at the distal left ureter at the level of the UVJ with moderate proximal hydroureter nephrosis. Left perinephric fluid/ stranding. No hydronephrosis or obstructing calculus on the right. 8 mm too small to characterize right renal hypodensity; statistically likely a cyst. S/P Left Pyelogram Retrograde Cystoscopy with Left Ureteral Stent placement by Urology Dr. Elly Hines on night of 06/07/17 3). Gall Bladder Wall thickening Abdominal U/S did not show any acute gall bladder findings, right renal subcentimeter cyst, fatty liver, borderline splenic enlargement 4). Fluid around Pancreatic tail noted on CT imaging Liapse and Amylase order with results within normal limits. These findings may be secondary to the perinephric fluid rather then due to pancreatic pathology: no epigastric tenderness on exam 5). Questionable 8 mm renal cyst Abdominal U/S revealed a right subcentimeter renal cyst F/U renal U/S at 6 months time This should be relayed to patient upon discharge as well for follow up care. 6). Electrolyte imbalance Low magnesium and low phosphorus and both were repleted on 06/07/17 and levels have normalized Continue to monitor 7). Anemia Likely Secondary to Iron Deficiency Iron levels are low Ferrous Sulfate 325 mg PO 2x/day 8). Prophylactic Measure Protonix 40 mg PO daily Heparin SC 5,000 units Q12 SCDs Florastor 250 mg PO 2x/day Colace 100 mg PO 2x/day Tylenol 650 mg PO Q6H PRN Fever Zofran 4 mg IV Q6H PRN N/V Morphine 4 mg IV Q4H PRN Severe Pain Moose Livingston D.O. Objective - Vital Signs/Intake and Output Vital Signs (last 24 hours): Temp Pulse Resp BP Pulse Ox 98.1 F 94 H 21 112/65 98 06/09/17 12:00 06/09/17 13:01 06/09/17 13:01 06/09/17 13:02 06/09/17 13:01 Intake and Output: 06/09/17 06/09/17 06:59 18:59 Intake Total 1738 1300 Output Total 1901 Balance -163 1300 - Medications Medications: Current Medications Acetaminophen (Tylenol 325mg Tab) 650 mg PO Q6 PRN PRN Reason: Headache Last Admin: 06/09/17 08:02 Dose: 650 mg Docusate Sodium (Colace) 100 mg PO BID COUNTS [facility] 234 BEDS AT THE [facility] Last Admin: 06/09/17 09:59 Dose: Not Given Ferrous Sulfate (Feosol) 325 mg PO BID COUNTS INCLUDE 234 BEDS AT THE [facility] Last Admin: 06/09/17 09:58 Dose: 325 mg Heparin Sodium (Porcine) (Heparin) 5,000 units SC Q12 COUNTS INCLUDE 234 BEDS AT THE [facility] Last Admin: 06/09/17 09:58 Dose: 5,000 units Meropenem 1 gm/ Sodium (Chloride) 100 mls @ 200 mls/hr IVPB Q8H COUNTS INCLUDE 234 BEDS AT THE [facility] Last Admin: 06/09/17 12:18 Dose: 200 mls/hr Sodium Chloride (Sodium Chloride 0.9%) 1,000 mls @ 100 mls/hr IV .Q10H COUNTS INCLUDE 234 BEDS AT THE [facility] Last Admin: 06/09/17 09:45 Dose: Not Given Morphine Sulfate (Morphine) 4 mg IVP Q4 PRN PRN Reason: Pain, severe (8-10) Ondansetron HCl (Zofran Inj) 4 mg IVP Q6H PRN PRN Reason: Nausea/Vomiting Last Admin: 06/08/17 18:49 Dose: 4 mg Saccharomyces Boulardii (Florastor) 250 mg PO BID COUNTS INCLUDE 234 BEDS AT THE [facility] Last Admin: 06/09/17 09:58 Dose: 250 mg - Labs Labs: 06/09/17 04:57 06/09/17 04:57 PT 12.1 SECONDS (9.7-12.2) 06/07/17 12:52 INR 1.1 06/07/17 12:52 APTT 26 SECONDS (21-34) 06/07/17 12:52
[2017-06-09] MEDS ORDERED: Potassium Chloride 20 mEq ER Tab PO ONE (17:15)
--- NOTE | 2017-06-09 18:10 | CARD ---
APPROVED REPORT EKG Measurement Heart [id number] <Conclusion> Sinus tachycardia Low voltage QRS ST & T wave abnormality, consider lateral ischemia Abnormal ECG
--- NOTE | 2017-06-09 18:22 | CARD ---
APPROVED REPORT EKG Measurement Heart [id number] <Conclusion> Sinus tachycardia Otherwise normal ECG
[2017-06-09 19:23] VITALS: RESP 20
[2017-06-10] MEDS: Meropenem 1 GM in Sodium Chloride 0.9% 100 ML IVPB SCH ×3 (04:30→19:45)
[2017-06-10 07:23] LABS: BASO # 0.1 K/uL (0.0-0.2); BASO % 0.6 % (0.0-2.0); EOS # 0.5 K/uL (0.0-0.7); EOS % 4.5 % (0.0-4.0); HEMATOCRIT 28.2 % (34.0-47.0); LYMPH # 1.1 K/uL (1.0-4.3); LYMPH % 9.2 % (20.0-40.0); MEAN CELL VOLUME 80.6 fL (81.0-99.0); MEAN CORPUSCULAR HGB CONC 32.2 g/dL (33.0-37.0); MEAN PLATELET VOLUME 8.1 fL (7.2-11.7); MONO # 0.5 K/uL (0.0-0.8); MONO % 4.1 % (0.0-10.0); PLATELET COUNT 215 K/uL (130-400); RED CELL DISTRIBUTION WIDTH 20.4 % (11.5-14.5); WHITE BLOOD COUNT 11.9 K/uL (4.8-10.8)
[2017-06-10 07:38] LABS: CHLORIDE 109 mmol/L (98-107)
[2017-06-10 07:39] LABS: SODIUM 140 mmol/L (132-148)
[2017-06-10 07:41] LABS: ALB/GLOB RATIO 0.9 (1.0-2.1); ALKALINE PHOSPHATASE 82 U/L (38-126); AST/SGOT 24 U/L (14-36); BILIRUBIN,TOTAL 0.3 mg/dL (0.2-1.3); BLOOD UREA NITROGEN 8 mg/dL (7-17); CARBON DIOXIDE 22 mmol/L (22-30); GFR AFRICAN-AMERICAN > 60; GLUCOSE,RANDOM 78 mg/dL (65-105)
[2017-06-10 07:42] LABS: ALT/SGPT 42 U/L (9-52); CALCIUM 9.2 mg/dl (8.6-10.4); MAGNESIUM 1.7 mg/dL (1.6-2.3); PHOSPHOROUS 2.5 mg/dL (2.5-4.5)
[2017-06-10 09:09] LABS: EOSINOPHIL 4 % (0-4); NEUTROPHIL 84 % (50-75); TOTAL CELLS COUNTED 100
[2017-06-10] MEDS: Sodium Chloride 0.9% 1,000 ML IV SCH ×3 (09:15→21:33)
[2017-06-10] MEDS: Saccharomyces Boulardi 250 mg Cap PO SCH ×2 (09:39→17:23)
--- NOTE | 2017-06-10 13:41 | CP.PCM.PN ---
Subjective - Date & Time of Evaluation Date of Evaluation: 06/10/17 Time of Evaluation: 13:15 - Subjective Subjective: Hospitalist Progress Note Patient was seen and examined at 1:15 PM 06/10/17 52 year old female with (PMHx of Nephrolithiasis) who was found to be in Septic Shock Secondary to UTI/Left Pyelonephritis Secondary to Left Ureteral Stone. Patient underwent Left Pyelogram Retrograde Cystoscopy with Left Ureteral Stent insertion on the night of 06/07/17. She was then admitted to the ICU for further treatment. Please see Assessment and Plans below for further details. Currently upon FULL ROS: Still with sharp Left Flank pain that comes and goes however it is less in intensity when compared to 06/09/17 Bifrontal pouding headache but NO visual changes: this has resolved today Moved her bowels twice on 06/08/17 after my exam. She had another bowel movement after my exam. NO bowel movement today Feels like she has more energy NO other complaints upon FULL ROS Exam: General: AAOx3, NAD HEENT: NCA, EOMI, PERRLA, NO cervical/supraclavicular/submandibular lymphadenopathy, NO pharyngeal erythema/exudate, Mucous Membranes are moist, Nasal Turbinates are nonedematous/nonerythematous Cardio: NS1 and NS2, NO M/R/G Respiratory: CTA B/L, NO R/R/W GI: BSx4, Soft, NT, ND, NO HSM, NO guarding/rebound tenderness, Left CVA Tenderness still present Ext: NO edema, Pulses are strong and equal, Capillary Refill is 2 seconds Neuro: CN II through XII are grossly intact Assessment and Plan (Free Text) 1). Septic Shock secondary to UTI/Pyelonephritis Upon presentation in ER: Patient with initial fever of 102.8, tachycardic, hypotensive not responding to fluids despite nearly 5 L bolus. Consult to ID Dr. Marino Meropenem 1 gm IV Q8H (06/07/17) UA positive for UTI Urine Culture 06/07/17 showed E. coli sensitive to Meropenem Blood Culture 06/07/17 showed E. coli sensitive to Meropenem Will repeat cultures on 06/11/17 D/C Moody Triple Lumen Catheter placed by ICU Team on 06/08/17 Patient no longer requiring pressure support and the Dopamine was discontinued 2). Left Ureter Nephrolithiasis CT Abdomen/Pelvis: 4 mm calcification at the distal left ureter at the level of the UVJ with moderate proximal hydroureter nephrosis. Left perinephric fluid/ stranding. No hydronephrosis or obstructing calculus on the right. 8 mm too small to characterize right renal hypodensity; statistically likely a cyst. S/P Left Pyelogram Retrograde Cystoscopy with Left Ureteral Stent placement by Urology Dr. Elly Hines on night of 06/07/17 3). Gall Bladder Wall thickening Abdominal U/S did not show any acute gall bladder findings, right renal subcentimeter cyst, fatty liver, borderline splenic enlargement 4). Fluid around Pancreatic tail noted on CT imaging Liapse and Amylase order with results within normal limits. These findings may be secondary to the perinephric fluid rather then due to pancreatic pathology: no epigastric tenderness on exam 5). Questionable 8 mm renal cyst Abdominal U/S revealed a right subcentimeter renal cyst F/U renal U/S at 6 months time This should be relayed to patient upon discharge as well for follow up care. 6). Electrolyte imbalance Low magnesium and low phosphorus and both were repleted on 06/07/17 and levels have normalized Continue to monitor 7). Anemia Likely Secondary to Iron Deficiency Iron levels are low Ferrous Sulfate 325 mg PO 2x/day 8). Prophylactic Measure Protonix 40 mg PO daily Heparin SC 5,000 units Q12 SCDs Florastor 250 mg PO 2x/day Colace 100 mg PO 2x/day Tylenol 650 mg PO Q6H PRN Fever Zofran 4 mg IV Q6H PRN N/V Morphine 4 mg IV Q4H PRN Severe Pain Moose Livingston D.O. Objective - Vital Signs/Intake and Output Vital Signs (last 24 hours): Temp Pulse Resp BP Pulse Ox 98.2 F 83 20 125/79 95 06/10/17 08:00 06/10/17 08:00 06/10/17 08:00 06/10/17 08:00 06/10/17 08:00 Intake and Output: 06/10/17 06/10/17 06:59 18:59 Intake Total 1540 Output Total 2100 Balance -560 - Medications Medications: Current Medications Acetaminophen (Tylenol 325mg Tab) 650 mg PO Q6 PRN PRN Reason: Headache Last Admin: 06/10/17 09:40 Dose: 650 mg Docusate Sodium (Colace) 100 mg PO BID [facility] Last Admin: 06/10/17 09:39 Dose: 100 mg Ferrous Sulfate (Feosol) 325 mg PO BID [facility] Last Admin: 06/10/17 09:39 Dose: 325 mg Heparin Sodium (Porcine) (Heparin) 5,000 units SC Q12 [facility] Last Admin: 06/10/17 09:40 Dose: 5,000 units Meropenem 1 gm/ Sodium (Chloride) 100 mls @ 200 mls/hr IVPB Q8H [facility] Last Admin: 06/10/17 11:45 Dose: 200 mls/hr Sodium Chloride (Sodium Chloride 0.9%) 1,000 mls @ 100 mls/hr IV .Q10H [facility] Last Admin: 06/10/17 09:15 Dose: 100 mls/hr Morphine Sulfate (Morphine) 4 mg IVP Q4 PRN PRN Reason: Pain, severe (8-10) Ondansetron HCl (Zofran Inj) 4 mg IVP Q6H PRN PRN Reason: Nausea/Vomiting Last Admin: 06/08/17 18:49 Dose: 4 mg Saccharomyces Boulardii (Florastor) 250 mg PO BID [facility] Last Admin: 06/10/17 09:39 Dose: 250 mg - Labs Labs: 06/10/17 07:12 06/10/17 07:12 PT 12.1 SECONDS (9.7-12.2) 06/07/17 12:52 INR 1.1 06/07/17 12:52 APTT 26 SECONDS (21-34) 06/07/17 12:52
--- NOTE | 2017-06-10 22:02 | CP.PCM.PN ---
Subjective - Date & Time of Evaluation Date of Evaluation: 06/10/17 Time of Evaluation: 04:00 - Subjective Subjective: dictated Objective - Vital Signs/Intake and Output Vital Signs (last 24 hours): Temp Pulse Resp BP Pulse Ox 97.7 F 82 20 126/75 97 06/10/17 15:25 06/10/17 15:25 06/10/17 15:25 06/10/17 15:25 06/10/17 15:25 Intake and Output: 06/10/17 06/11/17 18:59 06:59 Intake Total 1300 Output Total 1800 Balance -500 - Medications Medications: Current Medications Acetaminophen (Tylenol 325mg Tab) 650 mg PO Q6 PRN PRN Reason: Headache Last Admin: 06/10/17 19:49 Dose: 650 mg Docusate Sodium (Colace) 100 mg PO BID [facility] Last Admin: 06/10/17 17:23 Dose: 100 mg Ferrous Sulfate (Feosol) 325 mg PO BID [facility] Last Admin: 06/10/17 17:22 Dose: 325 mg Heparin Sodium (Porcine) (Heparin) 5,000 units SC Q12 [facility] Last Admin: 06/10/17 21:32 Dose: 5,000 units Meropenem 1 gm/ Sodium (Chloride) 100 mls @ 200 mls/hr IVPB Q8H [facility] Last Admin: 06/10/17 19:45 Dose: 200 mls/hr Sodium Chloride (Sodium Chloride 0.9%) 1,000 mls @ 100 mls/hr IV .Q10H [facility] Last Admin: 06/10/17 21:33 Dose: 100 mls/hr Morphine Sulfate (Morphine) 4 mg IVP Q4 PRN PRN Reason: Pain, severe (8-10) Ondansetron HCl (Zofran Inj) 4 mg IVP Q6H PRN PRN Reason: Nausea/Vomiting Last Admin: 06/08/17 18:49 Dose: 4 mg Saccharomyces Boulardii (Florastor) 250 mg PO BID [facility] Last Admin: 06/10/17 17:23 Dose: 250 mg - Labs Labs: 06/10/17 07:12 06/10/17 07:12 PT 12.1 SECONDS (9.7-12.2) 06/07/17 12:52 INR 1.1 06/07/17 12:52 APTT 26 SECONDS (21-34) 06/07/17 12:52
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
[2017-06-11] MEDS: Sodium Chloride 0.9% 1,000 ML IV SCH ×5 (01:13→20:49)
[2017-06-11] MEDS: Meropenem 1 GM in Sodium Chloride 0.9% 100 ML IVPB SCH ×3 (03:17→20:47)
[2017-06-11 07:48] LABS: BASO # 0.1 K/uL (0.0-0.2); BASO % 1.1 % (0.0-2.0); EOS # 0.6 K/uL (0.0-0.7); EOS % 8.5 % (0.0-4.0); HEMATOCRIT 30.5 % (34.0-47.0); LYMPH # 1.4 K/uL (1.0-4.3); LYMPH % 19.1 % (20.0-40.0); MEAN CELL VOLUME 79.7 fL (81.0-99.0); MEAN CORPUSCULAR HEMOGLOBIN 26.1 pg (27.0-31.0); MEAN CORPUSCULAR HGB CONC 32.8 g/dL (33.0-37.0); MEAN PLATELET VOLUME 8.3 fL (7.2-11.7); MONO # 0.7 K/uL (0.0-0.8); MONO % 9.3 % (0.0-10.0); RED CELL DISTRIBUTION WIDTH 19.8 % (11.5-14.5); WHITE BLOOD COUNT 7.4 K/uL (4.8-10.8)
[2017-06-11 08:08] LABS: ALB/GLOB RATIO 0.8 (1.0-2.1); ALKALINE PHOSPHATASE 104 U/L (38-126); ALT/SGPT 42 U/L (9-52); AST/SGOT 26 U/L (14-36); BILIRUBIN,TOTAL 0.3 mg/dL (0.2-1.3); BLOOD UREA NITROGEN 8 mg/dL (7-17); CARBON DIOXIDE 24 mmol/L (22-30); CHLORIDE 103 mmol/L (98-107); GFR AFRICAN-AMERICAN > 60; GLUCOSE,RANDOM 86 mg/dL (65-105); POTASSIUM 4.2 mmol/L (3.6-5.2); SODIUM 140 mmol/L (132-148); TOTAL PROTEIN 6.4 g/dL (6.3-8.3)
[2017-06-11] MEDS: Saccharomyces Boulardi 250 mg Cap PO SCH ×2 (10:03→17:43)
--- NOTE | 2017-06-11 10:36 | CP.PCM.PN ---
<Boogie Wagoner - Last Filed: 06/11/17 10:36> Subjective - Date & Time of Evaluation Date of Evaluation: 06/11/17 Time of Evaluation: 10:28 - Subjective Subjective: PGY1 Note for Dr. Livingston HPI: Patient seen and examined at bedside. Doing well. Says pain is much improved but still present in the the L. Flank probably secondary to the stent. Mild pain around R. IJ TLC. No chest pain or SOB. No Fever, D, N/V/F. Patient wants to go home. Talked with daughter at bedside. Knows the plan to follow up with Dr. Hines as outpatient. All questions were answered. Objective - Vital Signs/Intake and Output Vital Signs (last 24 hours): Temp Pulse Resp BP Pulse Ox 98.3 F 69 20 117/72 98 06/11/17 00:23 06/11/17 00:23 06/11/17 00:23 06/11/17 00:23 06/11/17 00:23 Intake and Output: 06/11/17 06/11/17 06:59 18:59 Intake Total 2100 Balance 2100 - Medications Medications: Current Medications Acetaminophen (Tylenol 325mg Tab) 650 mg PO Q6 PRN PRN Reason: Headache Last Admin: 06/11/17 04:46 Dose: 650 mg Docusate Sodium (Colace) 100 mg PO BID [facility] Last Admin: 06/11/17 10:06 Dose: Not Given Ferrous Sulfate (Feosol) 325 mg PO BID [facility] Last Admin: 06/11/17 10:03 Dose: 325 mg Heparin Sodium (Porcine) (Heparin) 5,000 units SC Q12 [facility] Last Admin: 06/11/17 10:03 Dose: 5,000 units Meropenem 1 gm/ Sodium (Chloride) 100 mls @ 200 mls/hr IVPB Q8H [facility] Last Admin: 06/11/17 03:17 Dose: 200 mls/hr Sodium Chloride (Sodium Chloride 0.9%) 1,000 mls @ 100 mls/hr IV .Q10H [facility] Last Admin: 06/11/17 10:03 Dose: 100 mls/hr Morphine Sulfate (Morphine) 4 mg IVP Q4 PRN PRN Reason: Pain, severe (8-10) Ondansetron HCl (Zofran Inj) 4 mg IVP Q6H PRN PRN Reason: Nausea/Vomiting Last Admin: 06/08/17 18:49 Dose: 4 mg Saccharomyces Boulardii (Florastor) 250 mg PO BID [facility] Last Admin: 06/11/17 10:03 Dose: 250 mg - Labs Labs: 06/11/17 07:37 06/11/17 07:37 PT 12.1 SECONDS (9.7-12.2) 06/07/17 12:52 INR 1.1 06/07/17 12:52 APTT 26 SECONDS (21-34) 06/07/17 12:52 - Constitutional Appears: Well, Non-toxic, No Acute Distress - Head Exam Head Exam: ATRAUMATIC, NORMAL INSPECTION, NORMOCEPHALIC - ENT Exam ENT Exam: Mucous Membranes Moist - Respiratory Exam Respiratory Exam: Clear to Ausculation Bilateral, NORMAL BREATHING PATTERN - Cardiovascular Exam Cardiovascular Exam: REGULAR RHYTHM - GI/Abdominal Exam GI & Abdominal Exam: Soft, Normal Bowel Sounds. absent: Distended, Tenderness - Extremities Exam Extremities Exam: absent: Joint Swelling, Tenderness - Neurological Exam Neurological Exam: Alert, Awake, Oriented x3 - Psychiatric Exam Psychiatric exam: Normal Affect, Normal Mood - Skin Skin Exam: Dry, Intact, Normal Color, Warm Assessment and Plan - Assessment and Plan (Free Text) Assessment: 1). Septic Shock secondary to UTI/Pyelonephritis Upon presentation in ER: Patient with initial fever of 102.8, tachycardic, hypotensive not responding to fluids despite nearly 5 L bolus. Consult to TEZ Marino Meropenem 1 gm IV Q8H (06/07/17) UA positive for UTI Urine Culture 06/07/17 showed E. coli sensitive to Meropenem Blood Culture 06/07/17 showed E. coli sensitive to Meropenem F/U repeat cultures D/C Moody Triple Lumen Catheter placed by ICU Team on 06/08/17 Patient no longer requiring pressure support and the Dopamine was discontinued 2). Left Ureter Nephrolithiasis CT Abdomen/Pelvis: 4 mm calcification at the distal left ureter at the level of the UVJ with moderate proximal hydroureter nephrosis. Left perinephric fluid/ stranding. No hydronephrosis or obstructing calculus on the right. 8 mm too small to characterize right renal hypodensity; statistically likely a cyst. S/P Left Pyelogram Retrograde Cystoscopy with Left Ureteral Stent placement by Urology Dr. Elly Hines on night of 06/07/17 3). Gall Bladder Wall thickening Abdominal U/S did not show any acute gall bladder findings, right renal subcentimeter cyst, fatty liver, borderline splenic enlargement 4). Fluid around Pancreatic tail noted on CT imaging Liapse and Amylase order with results within normal limits. These findings may be secondary to the perinephric fluid rather then due to pancreatic pathology: no epigastric tenderness on exam 5). Questionable 8 mm renal cyst Abdominal U/S revealed a right subcentimeter renal cyst F/U renal U/S at 6 months time This should be relayed to patient upon discharge as well for follow up care. 6). Electrolyte imbalance Low magnesium and low phosphorus and both were repleted on 06/07/17 and levels have normalized Continue to monitor 7). Anemia Likely Secondary to Iron Deficiency Iron levels are low Ferrous Sulfate 325 mg PO 2x/day 8). Prophylactic Measure Protonix 40 mg PO daily Heparin SC 5,000 units Q12 SCD[facility] Florastor 250 mg PO 2x/day Colace 100 mg PO 2x/day Tylenol 650 mg PO Q6H PRN Fever Zofran 4 mg IV Q6H PRN N/V Morphine 4 mg IV Q4H PRN Severe Pain If patient fever free and repeat BC negative on Tuesday, Discharge home <Moose Livingston - Last Filed: 06/11/17 12:20> Objective - Vital Signs/Intake and Output Vital Signs (last 24 hours): Temp Pulse Resp BP Pulse Ox 98.3 F 69 20 117/72 98 06/11/17 00:23 06/11/17 00:23 06/11/17 00:23 06/11/17 00:23 06/11/17 00:23 Intake and Output: 06/11/17 06/11/17 06:59 18:59 Intake Total 2100 Balance 2100 - Medications Medications: Current Medications Acetaminophen (Tylenol 325mg Tab) 650 mg PO Q6 PRN PRN Reason: Headache Last Admin: 06/11/17 04:46 Dose: 650 mg Docusate Sodium (Colace) 100 mg PO BID [facility] Last Admin: 06/11/17 10:06 Dose: Not Given Ferrous Sulfate (Feosol) 325 mg PO BID [facility] Last Admin: 06/11/17 10:03 Dose: 325 mg Heparin Sodium (Porcine) (Heparin) 5,000 units SC Q12 [facility] Last Admin: 06/11/17 10:03 Dose: 5,000 units Meropenem 1 gm/ Sodium (Chloride) 100 mls @ 200 mls/hr IVPB Q8H [facility] Last Admin: 06/11/17 11:41 Dose: 200 mls/hr Sodium Chloride (Sodium Chloride 0.9%) 1,000 mls @ 100 mls/hr IV .Q10H [facility] Last Admin: 06/11/17 11:49 Dose: Not Given Morphine Sulfate (Morphine) 4 mg IVP Q4 PRN PRN Reason: Pain, severe (8-10) Ondansetron HCl (Zofran Inj) 4 mg IVP Q6H PRN PRN Reason: Nausea/Vomiting Last Admin: 06/08/17 18:49 Dose: 4 mg Saccharomyces Boulardii (Florastor) 250 mg PO BID [facility] Last Admin: 06/11/17 10:03 Dose: 250 mg - Labs Labs: 06/11/17 07:37 06/11/17 07:37 PT 12.1 SECONDS (9.7-12.2) 06/07/17 12:52 INR 1.1 06/07/17 12:52 APTT 26 SECONDS (21-34) 06/07/17 12:52 Attending/Attestation - Attestation I have personally seen and examined this patient.: Yes I have fully participated in the care of the patient.: Yes I have reviewed all pertinent clinical information, including history, physical exam and plan: Yes Notes (Text): 06/11/17 12:18 Hospitalist Progress Note Patient was seen and examined at 12:15 PM 06/11/17 Exam, Assessment and Plan were thoroughly gone over with the Resident Explained to Daughter Lady who was present at the bedside, that as long as the repeat blood cultures 06/10/17 are negative at 72 hours on Tuesday06/13/17 and patients vitals are stable, we will discharge her at that time. Moose Livingston D.O.
[2017-06-12] MEDS: Meropenem 1 GM in Sodium Chloride 0.9% 100 ML IVPB SCH ×3 (03:59→19:35)
[2017-06-12 07:57] LABS: BASO # 0.1 K/uL (0.0-0.2); BASO % 0.9 % (0.0-2.0); EOS # 0.6 K/uL (0.0-0.7); EOS % 8.9 % (0.0-4.0); HEMATOCRIT 33.1 % (34.0-47.0); LYMPH # 1.9 K/uL (1.0-4.3); LYMPH % 25.8 % (20.0-40.0); MEAN CELL VOLUME 79.9 fL (81.0-99.0); MEAN CORPUSCULAR HGB CONC 32.6 g/dL (33.0-37.0); MEAN PLATELET VOLUME 8.1 fL (7.2-11.7); MONO # 0.9 K/uL (0.0-0.8); NRBC % 0.1 % (0.0-2.0); WHITE BLOOD COUNT 7.2 K/uL (4.8-10.8)
[2017-06-12 08:27] LABS: ALKALINE PHOSPHATASE 118 U/L (38-126); ALT/SGPT 40 U/L (9-52); AST/SGOT 30 U/L (14-36); BILIRUBIN,TOTAL 0.3 mg/dL (0.2-1.3); BLOOD UREA NITROGEN 10 mg/dL (7-17); CALCIUM 9.7 mg/dl (8.6-10.4); CARBON DIOXIDE 24 mmol/L (22-30); CHLORIDE 100 mmol/L (98-107); GFR AFRICAN-AMERICAN > 60; GLUCOSE,RANDOM 80 mg/dL (65-105); MAGNESIUM 1.6 mg/dL (1.6-2.3); PHOSPHOROUS 3.3 mg/dL (2.5-4.5); POTASSIUM 3.8 mmol/L (3.6-5.2); SODIUM 138 mmol/L (132-148); TOTAL PROTEIN 7.1 g/dL (6.3-8.3)
--- NOTE | 2017-06-12 08:53 | CP.PCM.PN ---
<Boogie Wagoner - Last Filed: 06/12/17 08:50> Subjective - Date & Time of Evaluation Date of Evaluation: 06/12/17 Time of Evaluation: 08:50 - Subjective Subjective: PGY1 Note for Dr. Livingston HPI: Objective - Vital Signs/Intake and Output Vital Signs (last 24 hours): Temp Pulse Resp BP Pulse Ox 98.2 F 80 20 115/74 95 06/12/17 08:29 06/12/17 08:29 06/12/17 08:29 06/12/17 08:29 06/12/17 08:29 Intake and Output: 06/12/17 06/12/17 06:59 18:59 Intake Total 2100 Output Total 900 Balance 1200 - Medications Medications: Current Medications Acetaminophen (Tylenol 325mg Tab) 650 mg PO Q6 PRN PRN Reason: Headache Last Admin: 06/11/17 23:46 Dose: 650 mg Docusate Sodium (Colace) 100 mg PO BID [facility] Last Admin: 06/11/17 17:46 Dose: Not Given Ferrous Sulfate (Feosol) 325 mg PO BID [facility] Last Admin: 06/11/17 17:44 Dose: 325 mg Heparin Sodium (Porcine) (Heparin) 5,000 units SC Q12 [facility] Last Admin: 06/11/17 22:32 Dose: 5,000 units Meropenem 1 gm/ Sodium (Chloride) 100 mls @ 200 mls/hr IVPB Q8H [facility] Last Admin: 06/12/17 03:59 Dose: 200 mls/hr Sodium Chloride (Sodium Chloride 0.9%) 1,000 mls @ 100 mls/hr IV .Q10H [facility] Last Admin: 06/11/17 20:49 Dose: 100 mls/hr Morphine Sulfate (Morphine) 4 mg IVP Q4 PRN PRN Reason: Pain, severe (8-10) Ondansetron HCl (Zofran Inj) 4 mg IVP Q6H PRN PRN Reason: Nausea/Vomiting Last Admin: 06/08/17 18:49 Dose: 4 mg Saccharomyces Boulardii (Florastor) 250 mg PO BID [facility] Last Admin: 06/11/17 17:43 Dose: 250 mg - Labs Labs: 06/12/17 07:41 06/12/17 07:41 PT 12.1 SECONDS (9.7-12.2) 06/07/17 12:52 INR 1.1 06/07/17 12:52 APTT 26 SECONDS (21-34) 06/07/17 12:52 Assessment and Plan - Assessment and Plan (Free Text) Assessment: 1). Septic Shock secondary to UTI/Pyelonephritis ID (Ned) Meropenem 1 gm IV Q8H (06/07/17) Urine Culture negative Blood culture prelim negative x48 hrs 2). Left Ureter Nephrolithiasis S/P Left Pyelogram Retrograde Cystoscopy with Left Ureteral Stent placement by Urology Dr. Elly Hines on night of 06/07/17 F/U outpt for stent removal 3). Questionable 8 mm renal cyst F/U renal U/S at 6 months time This should be relayed to patient upon discharge as well for follow up care. 4). Anemia Likely Secondary to Iron Deficiency Ferrous Sulfate 325 mg PO 2x/day 8). Prophylactic Measure Protonix 40 mg PO daily Heparin SC 5,000 units Q12 SCDs Florastor 250 mg PO 2x/day Colace 100 mg PO 2x/day Tylenol 650 mg PO Q6H PRN Fever Zofran 4 mg IV Q6H PRN N/V Morphine 4 mg IV Q4H PRN Severe Pain If patient fever free and repeat BC negative on Tuesday, Discharge home <Moose Livingston - Last Filed: 06/12/17 10:34> Objective - Vital Signs/Intake and Output Vital Signs (last 24 hours): Temp Pulse Resp BP Pulse Ox 98.2 F 80 20 115/74 95 06/12/17 08:29 06/12/17 08:29 06/12/17 08:29 06/12/17 08:29 06/12/17 08:29 Intake and Output: 06/12/17 06/12/17 06:59 18:59 Intake Total 2100 Output Total 900 Balance 1200 - Medications Medications: Current Medications Acetaminophen (Tylenol 325mg Tab) 650 mg PO Q6 PRN PRN Reason: Headache Last Admin: 06/11/17 23:46 Dose: 650 mg Docusate Sodium (Colace) 100 mg PO BID [facility] Last Admin: 06/11/17 17:46 Dose: Not Given Ferrous Sulfate (Feosol) 325 mg PO BID [facility] Last Admin: 06/11/17 17:44 Dose: 325 mg Heparin Sodium (Porcine) (Heparin) 5,000 units SC Q12 [facility] Last Admin: 06/11/17 22:32 Dose: 5,000 units Meropenem 1 gm/ Sodium (Chloride) 100 mls @ 200 mls/hr IVPB Q8H [facility] Last Admin: 06/12/17 03:59 Dose: 200 mls/hr Sodium Chloride (Sodium Chloride 0.9%) 1,000 mls @ 100 mls/hr IV .Q10H [facility] Last Admin: 06/11/17 20:49 Dose: 100 mls/hr Morphine Sulfate (Morphine) 4 mg IVP Q4 PRN PRN Reason: Pain, severe (8-10) Ondansetron HCl (Zofran Inj) 4 mg IVP Q6H PRN PRN Reason: Nausea/Vomiting Last Admin: 06/08/17 18:49 Dose: 4 mg Saccharomyces Boulardii (Florastor) 250 mg PO BID [facility] Last Admin: 06/11/17 17:43 Dose: 250 mg - Labs Labs: 06/12/17 07:41 06/12/17 07:41 PT 12.1 SECONDS (9.7-12.2) 06/07/17 12:52 INR 1.1 06/07/17 12:52 APTT 26 SECONDS (21-34) 06/07/17 12:52 Attending/Attestation - Attestation I have personally seen and examined this patient.: Yes I have fully participated in the care of the patient.: Yes I have reviewed all pertinent clinical information, including history, physical exam and plan: Yes Notes (Text): 06/12/17 10:17 Hospitalist Progress Note Patient was seen and examined at 10:15 AM 06/12/17 52 year old female with (PMHx of Nephrolithiasis) who was found to be in Septic Shock Secondary to UTI/Left Pyelonephritis Secondary to Left Ureteral Stone. Patient underwent Left Pyelogram Retrograde Cystoscopy with Left Ureteral Stent insertion on the night of 06/07/17. She was then admitted to the ICU for further treatment and then transferred to the medical surgical unit once her blood pressure was stablized. Urine Culture and Blood Cultures grew E. coli. Repeat cultures were sent on 06/10/17. Please see Assessment and Plans below for further details. There is NO reason for this patient to be on AVASYS. Nursing order placed to have this discontinued. Medicine Team did NOT order the AVASYS. Currently upon FULL ROS: NO longer with sharp Left Flank pain NO longer with headache Bowels have NOT been like diarrhea but they have been softer than usual. NOT black and NOT bloody Feels like she has more energy NO other complaints upon FULL ROS Exam: General: AAOx3, NAD HEENT: NCA, EOMI, PERRLA, NO cervical/supraclavicular/submandibular lymphadenopathy, NO pharyngeal erythema/exudate, Mucous Membranes are moist, Nasal Turbinates are nonedematous/nonerythematous Cardio: NS1 and NS2, NO M/R/G Respiratory: CTA B/L, NO R/R/W GI: BSx4, Soft, NT, ND, NO HSM, NO guarding/rebound tenderness, Left CVA Tenderness is NO longer present Ext: NO edema, Pulses are strong and equal, Capillary Refill is 2 seconds Neuro: CN II through XII are grossly intact Assessment and Plan (Free Text) 1). Septic Shock secondary to UTI/Pyelonephritis Upon presentation in ER: Patient with initial fever of 102.8, tachycardic, hypotensive not responding to fluids despite nearly 5 L bolus. Consult to ID Dr. Marino Meropenem 1 gm IV Q8H (06/07/17) UA positive for UTI Urine Culture 06/07/17 showed E. coli sensitive to Meropenem Blood Culture 06/07/17 showed E. coli sensitive to Meropenem Repeat Urine Culture 06/11/17 id NOT show any growth Repeat Blood Culture 06/10/17 is Negative To Date Moody was discontinued 06/10/17 Triple Lumen Catheter placed by ICU Team on 06/08/17 and this will have to be discontinued when she is ready for discharge 2). Left Ureter Nephrolithiasis CT Abdomen/Pelvis: 4 mm calcification at the distal left ureter at the level of the UVJ with moderate proximal hydroureter nephrosis. Left perinephric fluid/ stranding. No hydronephrosis or obstructing calculus on the right. 8 mm too small to characterize right renal hypodensity; statistically likely a cyst. S/P Left Pyelogram Retrograde Cystoscopy with Left Ureteral Stent placement by Urology Dr. Elly Hines on night of 06/07/17 Patient will need to have follow up with Dr. Hines for removal of left ureteral stent 3). Gall Bladder Wall thickening Abdominal U/S did not show any acute gall bladder findings, right renal subcentimeter cyst, fatty liver, borderline splenic enlargement 4). Fluid around Pancreatic tail noted on CT imaging Liapse and Amylase order with results within normal limits. These findings may be secondary to the perinephric fluid rather then due to pancreatic pathology: no epigastric tenderness on exam 5). Questionable 8 mm renal cyst Abdominal U/S revealed a right subcentimeter renal cyst F/U renal U/S at 6 months time as an outpatient This should be relayed to patient upon discharge as well for follow up care. 6). Electrolyte imbalance Low magnesium and low phosphorus and both were repleted on 06/07/17 and levels have normalized Continue to monitor 7). Anemia Likely Secondary to Iron Deficiency Iron levels are low Ferrous Sulfate 325 mg PO 2x/day 8). Prophylactic Measure Protonix 40 mg PO daily Heparin SC 5,000 units Q12 SCDs Florastor 250 mg PO 2x/day Colace 100 mg PO 2x/day Tylenol 650 mg PO Q6H PRN Fever Zofran 4 mg IV Q6H PRN N/V Morphine 4 mg IV Q4H PRN Severe Pain As long as repeat Blood Culture 06/10/17 is Negative at 72 hours, blood pressure is stable, no fevers, and as long as Echocardiogram (which has not been read yet as of my exam) shows NO vegetations, then patient may be discharged on 06/13. She will need a total of 14 days of antibiotics (Ciprofloxacin 500 mg PO 2x /day through and including 06/20/17 as both the blood and urine culture sensitivities showed an RAFAEL of < 0.25 for Ciprofloxacin). She will need to take an over the counter Probiotic (but not within 2 hours of Ciprofloxacin dose) while on Ciprofloxacin and for 30 days after last dose on 06/20/17. She will need to follow up with Urology Dr. Hines for removal of Left Ureter Stent. She will need to have outpatient Colonoscopy for evaluation of Stool Occult Blood Positive and because of her age and the fact that she has Anemia likely secondary to Iron Deficiency. She will need outpatient Renal U/S in 6 months for follow up of Renal Cyst. Medicine Team also please make sure her Triple Lumen Catheter on the Right is removed prior to anticipated discharge on . Moose Livingston D.O.
[2017-06-12] MEDS: Saccharomyces Boulardi 250 mg Cap PO SCH ×2 (10:19→17:08)
[2017-06-12] MEDS: Sodium Chloride 0.9% 1,000 ML IV SCH (10:20)
--- NOTE | 2017-06-12 10:59 | CARD ---
APPROVED REPORT EXAM: Two-dimensional and M-mode echocardiogram with Doppler and color Doppler. Other Information Quality : GoodRhythm : NSR INDICATION Peripheral Edema R/o Vegetation 2D DIMENSIONS IVSd0.9 (0.7-1.1cm)LVDd4.3 (3.9-5.9cm) PWd0.8 (0.7-1.1cm)LVDs2.9 (2.5-4.0cm) FS (%) 33.2 %LVEF (%)62.2 (>50%) M-Mode DIMENSIONS Left Atrium (MM)3.57 (2.5-4.0cm)Aortic Root2.51 (2.2-3.7cm) Aortic Cusp Exc.1.87 (1.5-2.0cm) Mitral Valve MV E [id number]/sMV A Bgdmrwrj59.6cm/sE/A ratio1.7 TDI E/Lateral E'0.0E/Medial E'0.0 Tricuspid Valve TR Peak [id number]/sTR Peak [id number] <Conclusion> Left ventricle: thickness: normal; size: normal; overall ejection fraction: 65%: diastolic filling pressures: normal Mitral valve: annulus: normal: leaflets: normal: excursion: normal; no significant trans-mitral gradient: no significant incompetence: left atrium: normal Aortic valve: leaflets: normal: excursion: normal; no significant trans-aortic gradient: No significant incompetence: aortic root: normal Right sided Structures: Pulmonary valve: normal; no significant incompetence; Tricuspid valve: normal; mild incompetence: Intra-cardiac hemodynamics: pulmonary systolic pressures: 36mmhg; central venous pressures:elevated No pericardial effusion
[2017-06-13] MEDS: Meropenem 1 GM in Sodium Chloride 0.9% 100 ML IVPB SCH ×2 (03:30→12:08)
[2017-06-13 07:15] LABS: BASO # 0.1 K/uL (0.0-0.2); BASO % 0.7 % (0.0-2.0); EOS # 0.7 K/uL (0.0-0.7); EOS % 7.8 % (0.0-4.0); HEMATOCRIT 35.5 % (34.0-47.0); LYMPH # 2.6 K/uL (1.0-4.3); LYMPH % 27.4 % (20.0-40.0); MEAN CELL VOLUME 79.1 fL (81.0-99.0); MEAN CORPUSCULAR HEMOGLOBIN 25.9 pg (27.0-31.0); MEAN CORPUSCULAR HGB CONC 32.8 g/dL (33.0-37.0); MEAN PLATELET VOLUME 8.2 fL (7.2-11.7); MONO # 1.1 K/uL (0.0-0.8); MONO % 11.3 % (0.0-10.0); NRBC % 0.1 % (0.0-2.0); PLATELET COUNT 284 K/uL (130-400); RED CELL DISTRIBUTION WIDTH 19.8 % (11.5-14.5); WHITE BLOOD COUNT 9.4 K/uL (4.8-10.8)
[2017-06-13 07:36] LABS: CHLORIDE 102 mmol/L (98-107); SODIUM 136 mmol/L (132-148)
[2017-06-13 07:37] LABS: POTASSIUM 4.6 mmol/L (3.6-5.2)
[2017-06-13 07:39] LABS: CARBON DIOXIDE 22 mmol/L (22-30); GFR AFRICAN-AMERICAN > 60
[2017-06-13 07:40] LABS: BLOOD UREA NITROGEN 13 mg/dL (7-17); CALCIUM 10.1 mg/dl (8.6-10.4); GLUCOSE,RANDOM 92 mg/dL (65-105); MAGNESIUM 1.8 mg/dL (1.6-2.3)
[2017-06-13] MEDS: Saccharomyces Boulardi 250 mg Cap PO SCH (09:36)
[2017-06-13 09:41] LABS: EOSINOPHIL 14 % (0-4); MYELOCYTE 2 % (0-0); NEUTROPHIL 43 % (50-75); TOTAL CELLS COUNTED 100
--- NOTE | 2017-06-13 13:08 | CP.PCM.DIS ---
<Jolanta Solorio V - Last Filed: 06/13/17 19:32> Provider - Provider Date of Admission: 06/07/17 16:37 Attending physician: Moose Livingston MD Hospital Course - Lab Results Lab Results: Micro Results 06/10/17 04:00 Blood-Venous Blood Culture - Preliminary NO GROWTH AFTER 3 DAYS 06/10/17 08:24 Blood-Venous Blood Culture - Preliminary NO GROWTH AFTER 3 DAYS 06/11/17 Unknown Urine Urine Culture - Final No Growth (<1,000 CFU/ML) 06/09/17 20:40 Naris MRSA Culture - Final MRSA NOT DETECTED 06/07/17 Unknown Nose MRSA Culture (Admit) - Final MRSA NOT DETECTED Most Recent Lab Values WBC 9.4 K/uL (4.8-10.8) 06/13/17 07:04 RBC 4.49 Mil/uL (3.80-5.20) 06/13/17 07:04 Hgb 11.6 g/dL (11.0-16.0) 06/13/17 07:04 Hct 35.5 % (34.0-47.0) 06/13/17 07:04 MCV 79.1 fL (81.0-99.0) L 06/13/17 07:04 MCH 25.9 pg (27.0-31.0) L 06/13/17 07:04 MCHC 32.8 g/dL (33.0-37.0) L 06/13/17 07:04 RDW 19.8 % (11.5-14.5) H 06/13/17 07:04 Plt Count 284 K/uL (130-400) 06/13/17 07:04 MPV 8.2 fL (7.2-11.7) 06/13/17 07:04 Neut % (Auto) 52.8 % (50.0-75.0) 06/13/17 07:04 Lymph % (Auto) 27.4 % (20.0-40.0) 06/13/17 07:04 Gem % (Auto) 11.3 % (0.0-10.0) H 06/13/17 07:04 Eos % (Auto) 7.8 % (0.0-4.0) H 06/13/17 07:04 Baso % (Auto) 0.7 % (0.0-2.0) 06/13/17 07:04 Neut # 5.0 K/uL (1.8-7.0) 06/13/17 07:04 Lymph # 2.6 K/uL (1.0-4.3) 06/13/17 07:04 Gem # 1.1 K/uL (0.0-0.8) H 06/13/17 07:04 Eos # 0.7 K/uL (0.0-0.7) 06/13/17 07:04 Baso # 0.1 K/uL (0.0-0.2) 06/13/17 07:04 Neutrophils % (Manual) 43 % (50-75) L 06/13/17 07:04 Band Neutrophils % 4 % (0-2) H 06/13/17 07:04 Lymphocytes % (Manual) 25 % (20-40) 06/13/17 07:04 Monocytes % (Manual) 12 % (0-10) H 06/13/17 07:04 Eosinophils % (Manual) 14 % (0-4) H 06/13/17 07:04 Basophils % (Manual) 1 % (0-2) 06/09/17 04:57 Myelocytes % 2 % (0-0) H 06/13/17 07:04 Platelet Estimate Normal (NORMAL) 06/13/17 07:04 Polychromasia Slight 06/10/17 07:12 Hypochromasia (manual) Slight 06/13/17 07:04 Poikilocytosis (manual Slight 06/13/17 07:04 Anisocytosis (manual) Slight 06/13/17 07:04 Ovalocytes Slight 06/07/17 12:52 PT 12.1 SECONDS (9.7-12.2) 06/07/17 12:52 INR 1.1 06/07/17 12:52 APTT 26 SECONDS (21-34) 06/07/17 12:52 pO2 52 mm/Hg (30-55) 06/07/17 17:45 VBG pH 7.32 (7.32-7.43) 06/07/17 17:45 VBG pCO2 34 mmHg (40-60) L 06/07/17 17:45 VBG HCO3 18.5 mmol/L 06/07/17 17:45 VBG Total CO2 18.5 mmol/L (22-28) L 06/07/17 17:45 VBG O2 Sat (Calc) 89.2 % (40-65) H 06/07/17 17:45 VBG Base Excess -7.7 mmol/L (0.0-2.0) L 06/07/17 17:45 VBG Potassium 2.9 mmol/L (3.6-5.2) L 06/07/17 17:45 Sodium 143.0 mmol/l (132-148) 06/07/17 17:45 Chloride 113.0 mmol/L (98-107) H 06/07/17 17:45 Glucose 86 mg/dl (65-105) 06/07/17 17:45 Lactate 1.7 mmol/L (0.7-2.1) 06/07/17 17:45 Sodium 136 mmol/L (132-148) 06/13/17 07:04 Potassium 4.6 mmol/L (3.6-5.2) 06/13/17 07:04 Chloride 102 mmol/L (98-107) 06/13/17 07:04 Carbon Dioxide 22 mmol/L (22-30) 06/13/17 07:04 Anion Gap 16 (10-20) 06/13/17 07:04 BUN 13 mg/dL (7-17) 06/13/17 07:04 Creatinine 0.6 MG/DL (0.7-1.2) L 06/13/17 07:04 Est GFR ( Amer) > 60 06/13/17 07:04 Est GFR (Non-Af Amer) > 60 06/13/17 07:04 POC Glucose (mg/dL) 87 mg/dL (65-110) 06/07/17 16:48 Random Glucose 92 mg/dL (65-105) 06/13/17 07:04 Calcium 10.1 mg/dl (8.6-10.4) 06/13/17 07:04 Phosphorus 3.0 mg/dL (2.5-4.5) 06/13/17 07:04 Magnesium 1.8 mg/dL (1.6-2.3) 06/13/17 07:04 Iron 10 ug/dL (37-170) L 06/08/17 06:42 TIBC 228 ug/dL (250-450) L 06/08/17 06:42 % Saturation 4.385 (20-55) L 06/08/17 06:42 Total Bilirubin 0.3 mg/dL (0.2-1.3) 06/12/17 07:41 AST 30 U/L (14-36) 06/12/17 07:41 ALT 40 U/L (9-52) 06/12/17 07:41 Alkaline Phosphatase 118 U/L (38-126) 06/12/17 07:41 Total Protein 7.1 g/dL (6.3-8.3) 06/12/17 07:41 Albumin 3.5 g/dL (3.5-5.0) D 06/12/17 07:41 Globulin 3.6 gm/dL (2.2-3.9) 06/12/17 07:41 Albumin/Globulin Ratio 1.0 (1.0-2.1) 06/12/17 07:41 Amylase 48 U/L (30-110) 06/07/17 18:31 Lipase 45 U/L (23-300) 06/07/17 18:31 Free T4 1.14 ng/dL (0.78-2.19) 06/08/17 06:42 TSH 3rd Generation 0.29 mIU/L (0.46-4.68) L 06/08/17 06:42 Venous Blood Potassium 2.9 mmol/L (3.6-5.2) L 06/07/17 17:45 Urine Color Yellow (YELLOW) 06/07/17 12:53 Urine Clarity Hazy (Clear) 06/07/17 12:53 Urine pH 5.0 (5.0-8.0) 06/07/17 12:53 Ur Specific [place] 1.015 (1.003-1.030) 06/07/17 12:53 Urine Protein Negative mg/dL (NEGATIVE) 06/07/17 12:53 Urine Glucose (UA) Normal mg/dL (Normal) 06/07/17 12:53 Urine Ketones Negative mg/dL (NEGATIVE) 06/07/17 12:53 Urine Blood 2+ (NEGATIVE) H 06/07/17 12:53 Urine Nitrate Negative (NEGATIVE) 06/07/17 12:53 Urine Bilirubin Negative (NEGATIVE) 06/07/17 12:53 Urine Urobilinogen Normal mg/dL (0.2-1.0) 06/07/17 12:53 Ur Leukocyte Esterase 3+ Mauro/uL (Negative) H 06/07/17 12:53 Urine WBC (Auto) 112 /hpf (0-5) H 06/07/17 12:53 Urine RBC (Auto) 9 /hpf (0-3) H 06/07/17 12:53 Ur Squamous Epith Cells 3 /hpf (0-5) 06/07/17 12:53 Urine Bacteria Rare (<OCC) 06/07/17 12:53 Stool Occult Blood Positive (NEGATIVE) H 06/08/17 22:46 Gentamicin Peak 4.9 ug/mL (5.0-8.0) L 06/09/17 08:26 Gentamicin Trough 1.2 ug/mL (0.0-0.9) H 06/09/17 04:57 Blood Type O POSITIVE 06/07/17 18:28 Antibody Screen Negative 06/07/17 18:28 Discharge Plan - Discharge Medications Prescriptions: Ciprofloxacin [Cipro] 500 mg PO Q12H #14 tab Docusate Sodium [Colace] 100 mg PO BID #10 capsule - Follow Up Plan Condition: STABLE Disposition: HOME/ ROUTINE Instructions: Urinary Tract Infection in Women (DC), Acute Pyelonephritis (DC) , Dysuria (GEN), Ureteral Stones (DC) Additional Instructions: Patient is clear and stable for discharge. Patient should follow up with Dr. Hines for removal of her stent in less than one week. She should call the office to make an appointment. I have attached his office information. Patient should follow up in our clinic within one week. She should call to make an appointment. I have attached the office information. She will need a colonoscopy because she is over 50 and has + stool occult blood. Patient will also need a outpatient renal ultrasound for follow up of her renal cyst. Patient should take the following medication: - Ciprofloxacin 500mg by mouth two times per day for 8 days Please come back to the ER if symptoms continue. Thank you and take care Referrals: Deejay Hines MD [Staff Provider] - [facility] [Outside] Attending/Attestation - Attestation I have personally seen and examined this patient.: Yes I have fully participated in the care of the patient.: Yes I have reviewed all pertinent clinical information, including history, physical exam and plan: Yes Notes (Text): patient seen, examined and case discussed with day-time resident. Further details per progress note. Discussed with physical therapy, stable from their prespective for discharge. TLC removed by resident prior to discharge. No complications noted. Detailed discharge instructions discussed with patient at bedside and noted below. Discharge Diagnoses 1). Septic Shock secondary to UTI/Pyelonephritis/Bacteremia * Upon presentation in ER: Patient with initial fever of 102.8, tachycardic, hypotensive not responding to fluids despite nearly 5 L bolus secondary to complicated urinary tract infection/pyelonephritis and bacteremia * Consult to ID Dr. Marino help appreciated * Meropenem 1 gm IV Q8H (06/07/17; Day 7 today) * Urine Culture 06/07/17 showed E. coli sensitive to Meropenem * Repeat Urine Culture 06/11/17 did NOT show any growth * Blood Culture 06/07/17 showed E. coli sensitive to Meropenem * Repeat Blood Culture 06/10/17 is Negative To Date * Moody was discontinued 06/10/17; has urinated post-Moody removal * Triple Lumen Catheter placed by ICU Team on 06/08/17 and this will have to be discontinued when she is ready for discharge * Echocardiogram (06/12/17): left ventricle: thickness, normal, size: normal: overall ejection fraction:65%, diastolic filling pressures normal. no pericardial effusion. 2). Left Ureter Nephrolithiasis * CT Abdomen/Pelvis (06/07/17): 4 mm calcification at the distal left ureter at the level of the UVJ with moderate proximal hydroureter nephrosis. Left perinephric fluid/stranding. No hydronephrosis or obstructing calculus on the right. 8 mm too small to characterize right renal hypodensity; statistically likely a cyst. * S/P Left Pyelogram Retrograde Cystoscopy with Left Ureteral Stent placement by Urology Dr. Elly Hines on night of 06/07/17 * Patient will need to have follow up with Dr. Hines for removal of left ureteral stent in a week (patient reports she has his phone number) 3). Gall Bladder Wall thickening * CT Abdomen/Pelvis (06/07/17): 4 mm calcification at the distal left ureter at the level of the UVJ with moderate proximal hydroureter nephrosis. Left perinephric fluid/stranding. No hydronephrosis or obstructing calculus on the right. 8 mm too small to characterize right renal hypodensity; statistically likely a cyst. Mild gallbladder wall thickening/pericholecsytic edema. No calcified gallstones evident. Hepatic steatosis. Diverticulosis without CT evidence of acute diverticulitis * Abdominal U/S did not show any acute gall bladder findings, right renal subcentimeter cyst, fatty liver, borderline splenic enlargement 4). Fluid around Pancreatic tail noted on CT imaging * CT Abdomen/Pelvis (06/07/17): 4 mm calcification at the distal left ureter at the level of the UVJ with moderate proximal hydroureter nephrosis. Left perinephric fluid/stranding. No hydronephrosis or obstructing calculus on the right. 8 mm too small to characterize right renal hypodensity; statistically likely a cyst. * Liapse and Amylase order with results within normal limits. * These findings may be secondary to the perinephric fluid rather then due to pancreatic pathology: no epigastric tenderness on exam 5). Questionable 8 mm renal cyst * Abdominal U/S revealed a right subcentimeter renal cyst * F/U renal U/S at 6 months time as an outpatient * This should be relayed to patient upon discharge as well for follow up care. 6). Electrolyte imbalance * Low magnesium and low phosphorus and both were repleted on 06/07/17 and levels have normalized * Continue to monitor 7). Anemia Likely Secondary to Iron Deficiency * Iron levels are low (iron, TIBC, and percent iron) * Ferrous Sulfate 325 mg PO 2x/day * +positive stool occult blood-->patient has not had her screening colonoscopy-- >recommended to follow-up with GI as outpatient 8). Prophylactic Measure * Pepcid 20mg PO bid * Heparin SC 5,000 units Q12H for DVT ppx * SCDs * Florastor 250 mg PO 2x/day * Colace 100 mg PO 2x/day * Tylenol 650 mg PO Q6H PRN Fever * Zofran 4 mg IV Q6H PRN N/V * Physical therapy eval and treat * Activity: OOB Disposition: Patient stable per Physical therapy for discharge. Discharge instructions upon discharge: * Patient to complete total 14 day course of Ciprofloxoxcin. Patient is on Day 7 of Meropenem; will need 7 days prescription: Ciprofloxacin 500mg PO BID to complete the course. Patient does not have insurance to cover probiotic which can be rather expensive. Recommended for yogurt in between doses of antibiotic for natural probiotic. * Patient will need to follow-up with Dr. Harman Hines (urology) within one week of discharge to remove urethral stent; patient reports she has office number * Patient will need repeat Renal Ultrasound in 6 months to monitor renal cyst. * Patient will need repeat iron studies given anemia secondary to iron deficiency. Patient will need GI referral for baseline screening colonoscopy given positive stool occult found during hospitalization. * Patient strongly recommended to establish care at the [facility] ([phone]) for follow-up appointment post-hospitalization. * TLC to be removed prior to discharge. <Boogie Wagoner - Last Filed: 06/14/17 17:24> Provider - Provider Date of Admission: 06/07/17 16:37 Attending physician: Moose Livingston MD Primary care physician: Clinic Consults: Uro = Elly Hines ID = Ned Time Spent in preparation of Discharge (in minutes): 45 Hospital Course - Lab Results Lab Results: Micro Results 06/10/17 04:00 Blood-Venous Blood Culture - Preliminary NO GROWTH AFTER 3 DAYS 06/10/17 08:24 Blood-Venous Blood Culture - Preliminary NO GROWTH AFTER 3 DAYS 06/11/17 Unknown Urine Urine Culture - Final No Growth (<1,000 CFU/ML) 06/09/17 20:40 Naris MRSA Culture - Final MRSA NOT DETECTED 06/07/17 Unknown Nose MRSA Culture (Admit) - Final MRSA NOT DETECTED Most Recent Lab Values WBC 9.4 K/uL (4.8-10.8) 06/13/17 07:04 RBC 4.49 Mil/uL (3.80-5.20) 06/13/17 07:04 Hgb 11.6 g/dL (11.0-16.0) 06/13/17 07:04 Hct 35.5 % (34.0-47.0) 06/13/17 07:04 MCV 79.1 fL (81.0-99.0) L 06/13/17 07:04 MCH 25.9 pg (27.0-31.0) L 06/13/17 07:04 MCHC 32.8 g/dL (33.0-37.0) L 06/13/17 07:04 RDW 19.8 % (11.5-14.5) H 06/13/17 07:04 Plt Count 284 K/uL (130-400) 06/13/17 07:04 MPV 8.2 fL (7.2-11.7) 06/13/17 07:04 Neut % (Auto) 52.8 % (50.0-75.0) 06/13/17 07:04 Lymph % (Auto) 27.4 % (20.0-40.0) 06/13/17 07:04 Gem % (Auto) 11.3 % (0.0-10.0) H 06/13/17 07:04 Eos % (Auto) 7.8 % (0.0-4.0) H 06/13/17 07:04 Baso % (Auto) 0.7 % (0.0-2.0) 06/13/17 07:04 Neut # 5.0 K/uL (1.8-7.0) 06/13/17 07:04 Lymph # 2.6 K/uL (1.0-4.3) 06/13/17 07:04 Gem # 1.1 K/uL (0.0-0.8) H 06/13/17 07:04 Eos # 0.7 K/uL (0.0-0.7) 06/13/17 07:04 Baso # 0.1 K/uL (0.0-0.2) 06/13/17 07:04 Neutrophils % (Manual) 43 % (50-75) L 06/13/17 07:04 Band Neutrophils % 4 % (0-2) H 06/13/17 07:04 Lymphocytes % (Manual) 25 % (20-40) 06/13/17 07:04 Monocytes % (Manual) 12 % (0-10) H 06/13/17 07:04 Eosinophils % (Manual) 14 % (0-4) H 06/13/17 07:04 Basophils % (Manual) 1 % (0-2) 06/09/17 04:57 Myelocytes % 2 % (0-0) H 06/13/17 07:04 Platelet Estimate Normal (NORMAL) 06/13/17 07:04 Polychromasia Slight 06/10/17 07:12 Hypochromasia (manual) Slight 06/13/17 07:04 Poikilocytosis (manual Slight 06/13/17 07:04 Anisocytosis (manual) Slight 06/13/17 07:04 Ovalocytes Slight 06/07/17 12:52 PT 12.1 SECONDS (9.7-12.2) 06/07/17 12:52 INR 1.1 06/07/17 12:52 APTT 26 SECONDS (21-34) 06/07/17 12:52 pO2 52 mm/Hg (30-55) 06/07/17 17:45 VBG pH 7.32 (7.32-7.43) 06/07/17 17:45 VBG pCO2 34 mmHg (40-60) L 06/07/17 17:45 VBG HCO3 18.5 mmol/L 06/07/17 17:45 VBG Total CO2 18.5 mmol/L (22-28) L 06/07/17 17:45 VBG O2 Sat (Calc) 89.2 % (40-65) H 06/07/17 17:45 VBG Base Excess -7.7 mmol/L (0.0-2.0) L 06/07/17 17:45 VBG Potassium 2.9 mmol/L (3.6-5.2) L 06/07/17 17:45 Sodium 143.0 mmol/l (132-148) 06/07/17 17:45 Chloride 113.0 mmol/L (98-107) H 06/07/17 17:45 Glucose 86 mg/dl (65-105) 06/07/17 17:45 Lactate 1.7 mmol/L (0.7-2.1) 06/07/17 17:45 Sodium 136 mmol/L (132-148) 06/13/17 07:04 Potassium 4.6 mmol/L (3.6-5.2) 06/13/17 07:04 Chloride 102 mmol/L (98-107) 06/13/17 07:04 Carbon Dioxide 22 mmol/L (22-30) 06/13/17 07:04 Anion Gap 16 (10-20) 06/13/17 07:04 BUN 13 mg/dL (7-17) 06/13/17 07:04 Creatinine 0.6 MG/DL (0.7-1.2) L 06/13/17 07:04 Est GFR ( Amer) > 60 06/13/17 07:04 Est GFR (Non-Af Amer) > 60 06/13/17 07:04 POC Glucose (mg/dL) 87 mg/dL (65-110) 06/07/17 16:48 Random Glucose 92 mg/dL (65-105) 06/13/17 07:04 Calcium 10.1 mg/dl (8.6-10.4) 06/13/17 07:04 Phosphorus 3.0 mg/dL (2.5-4.5) 06/13/17 07:04 Magnesium 1.8 mg/dL (1.6-2.3) 06/13/17 07:04 Iron 10 ug/dL (37-170) L 06/08/17 06:42 TIBC 228 ug/dL (250-450) L 06/08/17 06:42 % Saturation 4.385 (20-55) L 06/08/17 06:42 Total Bilirubin 0.3 mg/dL (0.2-1.3) 06/12/17 07:41 AST 30 U/L (14-36) 06/12/17 07:41 ALT 40 U/L (9-52) 06/12/17 07:41 Alkaline Phosphatase 118 U/L (38-126) 06/12/17 07:41 Total Protein 7.1 g/dL (6.3-8.3) 06/12/17 07:41 Albumin 3.5 g/dL (3.5-5.0) D 06/12/17 07:41 Globulin 3.6 gm/dL (2.2-3.9) 06/12/17 07:41 Albumin/Globulin Ratio 1.0 (1.0-2.1) 06/12/17 07:41 Amylase 48 U/L (30-110) 06/07/17 18:31 Lipase 45 U/L (23-300) 06/07/17 18:31 Free T4 1.14 ng/dL (0.78-2.19) 06/08/17 06:42 TSH 3rd Generation 0.29 mIU/L (0.46-4.68) L 06/08/17 06:42 Venous Blood Potassium 2.9 mmol/L (3.6-5.2) L 06/07/17 17:45 Urine Color Yellow (YELLOW) 06/07/17 12:53 Urine Clarity Hazy (Clear) 06/07/17 12:53 Urine pH 5.0 (5.0-8.0) 06/07/17 12:53 Ur Specific [place] 1.015 (1.003-1.030) 06/07/17 12:53 Urine Protein Negative mg/dL (NEGATIVE) 06/07/17 12:53 Urine Glucose (UA) Normal mg/dL (Normal) 06/07/17 12:53 Urine Ketones Negative mg/dL (NEGATIVE) 06/07/17 12:53 Urine Blood 2+ (NEGATIVE) H 06/07/17 12:53 Urine Nitrate Negative (NEGATIVE) 06/07/17 12:53 Urine Bilirubin Negative (NEGATIVE) 06/07/17 12:53 Urine Urobilinogen Normal mg/dL (0.2-1.0) 06/07/17 12:53 Ur Leukocyte Esterase 3+ Mauro/uL (Negative) H 06/07/17 12:53 Urine WBC (Auto) 112 /hpf (0-5) H 06/07/17 12:53 Urine RBC (Auto) 9 /hpf (0-3) H 06/07/17 12:53 Ur Squamous Epith Cells 3 /hpf (0-5) 06/07/17 12:53 Urine Bacteria Rare (<OCC) 06/07/17 12:53 Stool Occult Blood Positive (NEGATIVE) H 06/08/17 22:46 Gentamicin Peak 4.9 ug/mL (5.0-8.0) L 06/09/17 08:26 Gentamicin Trough 1.2 ug/mL (0.0-0.9) H 06/09/17 04:57 Blood Type O POSITIVE 06/07/17 18:28 Antibody Screen Negative 06/07/17 18:28 - Hospital Course Hospital Course: On Admission: 52 year old female with past medical history significant for nephrolithiasis presents with complaints of fevers and suprapubic tenderness which started approximately 6:45 AM this morning. Patient states that her symptoms were not getting better and thus she came in to seek further care. She did not attempt anything for relief. She states that movements exacerbated her symptoms. At this time, she admits to fevers, nausea, suprapubic and flank pain. She denies vomiting, chest pain, palpitations or dyspnea at this time. Patient is a 52 year old Qatari speaking female who presented to the Ed with left flan pain, nausea, fever, and urinary urgency. Ct of the abdomen and pelvis was performed and noted 4 mm calcification at the distal left ureter at the level of the UVJ with moderate proximal hydroureter nephrosis. Because of the patients status at the time of admission she was admitted to the icu for septic shock secondary to nephrolithiasis. Urology was consulted and patient was started on appropriate ABX. Cystoscopy retrograde, pyelogram left side stent insertion was performed. A central line was placed so vasopressors could be given to maintain her BP.F/U chest xray was performed and noted appropriately placed central line with no pneumothorax. Due to the patients possible systemic infection, Dr. Marino was consulted.Patient is improving. Patient was examined today and looks well and happy. Spoke to her today about the need to continue ABX outside of the hospital and that she must consume yogurt once daily. Central line was removed today with no complication. She understands she must follow up with Dr. Amaya outpatient about her stent. She is cleared for discharge. - Date & Time of H&P Date of H&P: 06/07/17 Time of H&P: 19:30 Discharge Exam - Head Exam Head Exam: ATRAUMATIC, NORMAL INSPECTION, NORMOCEPHALIC - Eye Exam Eye Exam: EOMI - ENT Exam ENT Exam: Mucous Membranes Moist - Respiratory Exam Respiratory Exam: NORMAL BREATHING PATTERN, UNREMARKABLE - Cardiovascular Exam Cardiovascular Exam: REGULAR RHYTHM - GI/Abdominal Exam GI & Abdominal Exam: Normal Bowel Sounds, Soft, Unremarkable. absent: Distended , Tenderness - Exam Exam: NORMAL INSPECTION - Neurological Exam Neurological exam: Alert, Oriented x3 - Psychiatric Exam Psychiatric exam: Normal Affect, Normal Mood - Skin Skin Exam: Dry, Intact, Normal Color, Warm
--- NOTE | 2017-06-13 13:18 | CP.PCM.PN ---
Subjective - Date & Time of Evaluation Date of Evaluation: 06/13/17 Time of Evaluation: 11:45 - Subjective Subjective: Medical Attending Note: Patient seen, examined, and case discussed with day-time resident during morning rounds. Patient seen at 11:50AM during rounds, assistance in Macanese Translation provided by Macanese speaking medical student. Patient reports she is feeling better, denies headache, denies chest pain, denies cough, denies abdominal pain, reports she eating handful bites of food, denies nausea, denies vomitting, reports mild left flank. She reports her snowden was removed recently and has urinated since Snowden was removed. patient reports she is eager to go home. patient reports she has been in bed mostly for past 4 days. Will ask Physical therapy to come by and see her prior to discharge. Objective - Vital Signs/Intake and Output Vital Signs (last 24 hours): Temp Pulse Resp BP Pulse Ox 98 F 88 20 113/68 95 06/13/17 08:00 06/13/17 08:00 06/13/17 08:00 06/13/17 08:00 06/13/17 08:00 Intake and Output: 06/13/17 06/13/17 06:59 18:59 Intake Total 1580 Output Total 800 Balance 780 - Medications Medications: Current Medications Acetaminophen (Tylenol 325mg Tab) 650 mg PO Q6 PRN PRN Reason: Headache Last Admin: 06/11/17 23:46 Dose: 650 mg Docusate Sodium (Colace) 100 mg PO BID [facility] Last Admin: 06/13/17 09:36 Dose: Not Given Ferrous Sulfate (Feosol) 325 mg PO BID [facility] Last Admin: 06/13/17 09:36 Dose: 325 mg Heparin Sodium (Porcine) (Heparin) 5,000 units SC Q12 [facility] Last Admin: 06/13/17 09:36 Dose: 5,000 units Meropenem 1 gm/ Sodium (Chloride) 100 mls @ 200 mls/hr IVPB Q8H [facility] Last Admin: 06/13/17 12:08 Dose: 200 mls/hr Ondansetron HCl (Zofran Inj) 4 mg IVP Q6H PRN PRN Reason: Nausea/Vomiting Last Admin: 06/08/17 18:49 Dose: 4 mg Saccharomyces Boulardii (Florastor) 250 mg PO BID [facility] Last Admin: 06/13/17 09:36 Dose: 250 mg - Labs Labs: 06/13/17 07:04 06/13/17 07:04 PT 12.1 SECONDS (9.7-12.2) 06/07/17 12:52 INR 1.1 06/07/17 12:52 APTT 26 SECONDS (21-34) 06/07/17 12:52 - Constitutional Appears: Non-toxic, No Acute Distress - Head Exam Head Exam: NORMAL INSPECTION - Eye Exam Eye Exam: EOMI - ENT Exam ENT Exam: Mucous Membranes Moist - Neck Exam Additional comments: TLC right side of neck; clean/dry/intact - Respiratory Exam Respiratory Exam: Clear to Ausculation Bilateral, NORMAL BREATHING PATTERN. absent: Rales, Rhonchi, Wheezes, Respiratory Distress - Cardiovascular Exam Cardiovascular Exam: REGULAR RHYTHM, +S1, +S2 - GI/Abdominal Exam GI & Abdominal Exam: Soft, Normal Bowel Sounds. absent: Distended, Firm, Guarding, Rigid, Tenderness, Rebound - Extremities Exam Extremities Exam: absent: Pedal Edema, Tenderness - Back Exam Back Exam: muscle spasm, NORMAL INSPECTION. absent: CVA tenderness (L), paraspinal tenderness, rash noted - Neurological Exam Neurological Exam: Alert, Awake, Oriented x3 - Psychiatric Exam Psychiatric exam: Normal Affect, Normal Mood - Skin Skin Exam: Dry, Intact, Normal Color, Warm Assessment and Plan - Assessment and Plan (Free Text) Assessment: 52 year old female with (PMHx of Nephrolithiasis) who was found to be in Septic Shock Secondary to UTI/Left Pyelonephritis Secondary to Left Ureteral Stone. Patient underwent Left Pyelogram Retrograde Cystoscopy with Left Ureteral Stent insertion on the night of 06/07/17. She was then admitted to the ICU for further treatment and then transferred to the medical surgical unit once her blood pressure was stabilized. Assessment/Plan 1). Septic Shock secondary to UTI/Pyelonephritis/Bacteremia * Upon presentation in ER: Patient with initial fever of 102.8, tachycardic, hypotensive not responding to fluids despite nearly 5 L bolus secondary to complicated urinary tract infection/pyelonephritis and bacteremia * Consult to ID Dr. Marino help appreciated * Meropenem 1 gm IV Q8H (06/07/17; Day 7 today) * Urine Culture 06/07/17 showed E. coli sensitive to Meropenem * Repeat Urine Culture 06/11/17 did NOT show any growth * Blood Culture 06/07/17 showed E. coli sensitive to Meropenem * Repeat Blood Culture 06/10/17 is Negative To Date * Snowden was discontinued 06/10/17; has urinated post-Snowden removal * Triple Lumen Catheter placed by ICU Team on 06/08/17 and this will have to be discontinued when she is ready for discharge * Echocardiogram (06/12/17): left ventricle: thickness, normal, size: normal: overall ejection fraction:65%, diastolic filling pressures normal. no pericardial effusion. 2). Left Ureter Nephrolithiasis * CT Abdomen/Pelvis (06/07/17): 4 mm calcification at the distal left ureter at the level of the UVJ with moderate proximal hydroureter nephrosis. Left perinephric fluid/stranding. No hydronephrosis or obstructing calculus on the right. 8 mm too small to characterize right renal hypodensity; statistically likely a cyst. * S/P Left Pyelogram Retrograde Cystoscopy with Left Ureteral Stent placement by Urology Dr. Elly Hines on night of 06/07/17 * Patient will need to have follow up with Dr. Hines for removal of left ureteral stent in a week (patient reports she has his phone number) 3). Gall Bladder Wall thickening * CT Abdomen/Pelvis (06/07/17): 4 mm calcification at the distal left ureter at the level of the UVJ with moderate proximal hydroureter nephrosis. Left perinephric fluid/stranding. No hydronephrosis or obstructing calculus on the right. 8 mm too small to characterize right renal hypodensity; statistically likely a cyst. Mild gallbladder wall thickening/pericholecsytic edema. No calcified gallstones evident. Hepatic steatosis. Diverticulosis without CT evidence of acute diverticulitis * Abdominal U/S did not show any acute gall bladder findings, right renal subcentimeter cyst, fatty liver, borderline splenic enlargement 4). Fluid around Pancreatic tail noted on CT imaging * CT Abdomen/Pelvis (06/07/17): 4 mm calcification at the distal left ureter at the level of the UVJ with moderate proximal hydroureter nephrosis. Left perinephric fluid/stranding. No hydronephrosis or obstructing calculus on the right. 8 mm too small to characterize right renal hypodensity; statistically likely a cyst. * Liapse and Amylase order with results within normal limits. * These findings may be secondary to the perinephric fluid rather then due to pancreatic pathology: no epigastric tenderness on exam 5). Questionable 8 mm renal cyst * Abdominal U/S revealed a right subcentimeter renal cyst * F/U renal U/S at 6 months time as an outpatient * This should be relayed to patient upon discharge as well for follow up care. 6). Electrolyte imbalance * Low magnesium and low phosphorus and both were repleted on 06/07/17 and levels have normalized * Continue to monitor 7). Anemia Likely Secondary to Iron Deficiency * Iron levels are low (iron, TIBC, and percent iron) * Ferrous Sulfate 325 mg PO 2x/day * +positive stool occult blood-->patient has not had her screening colonoscopy-- >recommended to follow-up with GI as outpatient 8). Prophylactic Measure * Pepcid 20mg PO bid * Heparin SC 5,000 units Q12H for DVT ppx * SCDs * Florastor 250 mg PO 2x/day * Colace 100 mg PO 2x/day * Tylenol 650 mg PO Q6H PRN Fever * Zofran 4 mg IV Q6H PRN N/V * Physical therapy eval and treat * Activity: OOB Disposition: Patient is awaiting physical therapy eval given she has not been out of bed for 4 days and is afraid to go home. Discharge instructions upon discharge: * Patient to complete total 14 day course of Ciprofloxoxcin. Patient is on Day 7 of Meropenem; will need 7 days prescription: Ciprofloxacin 500mg PO BID to complete the course. Patient does not have insurance to cover probiotic which can be rather expensive. Recommended for yogurt in between doses of antibiotic for natural probiotic. * Patient will need to follow-up with Dr. Harman Hines (urology) within one week of discharge to remove urethral stent; patient reports she has office number * Patient will need repeat Renal Ultrasound in 6 months to monitor renal cyst. * Patient will need repeat iron studies given anemia secondary to iron deficiency. Patient will need GI referral for baseline screening colonoscopy given positive stool occult found during hospitalization. * Patient strongly recommended to establish care at the [facility] ([phone]) for follow-up appointment post-hospitalization. * TLC to be removed prior to discharge. Attending/Attestation - Attestation I have personally seen and examined this patient.: Yes I have fully participated in the care of the patient.: Yes I have reviewed all pertinent clinical information, including history, physical exam and plan: Yes
[2017-06-13] MEDS ORDERED: Pneumococcal 23-Valent Vaccine IM ONE (14:05)
[2017-06-13 16:29] VITALS: BP 109/69; PULSE 86; TEMP 97.9; O2SAT 96
--- NOTE | 2017-06-13 16:33 | PCM.URO ---
Urology Progress Note - Objective Lab Results Last 24 Hours: Laboratory Results - last 24 hr 06/13/17 06/13/17 07:04 07:04 WBC 9.4 RBC 4.49 Hgb 11.6 Hct 35.5 MCV 79.1 L MCH 25.9 L MCHC 32.8 L RDW 19.8 H Plt Count 284 MPV 8.2 Neut % (Auto) 52.8 Lymph % (Auto) 27.4 [place] % (Auto) 11.3 H Eos % (Auto) 7.8 H Baso % (Auto) 0.7 Neut # 5.0 Lymph # 2.6 [place] # 1.1 H Eos # 0.7 Baso # 0.1 Neutrophils % (Manual) 43 L Band Neutrophils % 4 H Lymphocytes % (Manual) 25 Monocytes % (Manual) 12 H Eosinophils % (Manual) 14 H Myelocytes % 2 H Platelet Estimate Normal Hypochromasia (manual) Slight Poikilocytosis (manual Slight Anisocytosis (manual) Slight Sodium 136 Potassium 4.6 Chloride 102 Carbon Dioxide 22 Anion Gap 16 BUN 13 Creatinine 0.6 L Est GFR ( Amer) > 60 Est GFR (Non-Af Amer) > 60 Random Glucose 92 Calcium 10.1 Phosphorus 3.0 Magnesium 1.8 Intake & Output: Intake & Output 06/12/17 06/13/17 06/13/17 18:59 06:59 18:59 Intake Total 1580 340 Output Total 800 Balance 780 340 Intake: Intake, IV Amount 1100 100 Right Internal Jugular 1100 100 Oral 480 240 Output: Urine 800 Urethral (Moody) 800 Other: # Voids Urethral (Moody) 3 2 2 # Bowel Movements 1 2 Vital Signs: Vital Signs - 24 hr 06/12/17 06/13/17 06/13/17 23:45 08:00 14:19 Temperature 98.5 F 98 F Pulse Rate 79 88 Respiratory 20 20 Rate Blood Pressure 116/70 113/68 103/65 O2 Sat by Pulse 96 95 Oximetry 06/13/17 16:00 Temperature 97.9 F Pulse Rate 86 Respiratory 20 Rate Blood Pressure 109/69 O2 Sat by Pulse 96 Oximetry
[2017-06-13] MEDS ORDERED: Ciprofloxacin 400mg/200ml D5W 400 MG/200 ML BAG IVPB SCH (18:00)
--- NOTE | 2017-07-11 02:15 | OP ---
PROCEDURE DATE: 06/07/2017 PREOPERATIVE DIAGNOSES: Urolithiasis, severe renal colic, hematuria, hydronephrosis. POSTOPERATIVE DIAGNOSIS: Urolithiasis, severe renal colic, hematuria, hydronephrosis. PROCEDURES: Cystoscopy, left retrograde pyelogram, insertion of left double J stent. BLOOD LOSS: Less than 10 mL. COMPLICATIONS: No complications. At the termination of the procedure, the patient had a left double J stent in. INDICATIONS: See history and physical and consultation. Very pleasant lady who I am meeting for the first time with severe renal colic with a stone. We discussed options including observation. The patient is having severe ongoing pain, so she is here now for the above-listed procedure. DESCRIPTION OF PROCEDURE: After obtaining informed consent, the patient was placed on the table, routine monitors were placed, time-out was called. I discussed options with the patient in [place] with a sales and production manager here. Her daughter is also here with her. Procedure continued with the cystoscope via urethra, ureteral orifice. The patient was given antibiotic prophylaxis, see the history and physical and the consultation note. The patient was brought to the OR, placed on the table, routine monitors were placed, time-out was called. We discussed options, risks, benefits, and alternatives at length. We confirmed the patient and positioning. Cystoscope via urethra, the ureteral orifice identified. Retrograde pyelogram was performed. At this point, I placed a stent into kidney without difficulty. Postop films confirmed the positioning. The bladder was emptied and cystoscope removed. The patient tolerated the procedure well without complications. ADDENDUM: The plan will be mostly outpatient followup. We will plan for ureteroscopy and laser lithotripsy versus possibility for ESWL depending on the patient's travel status, etc., and other things to be discussed. Further plan will follow. Brody Hines MD
--- NOTE | 2017-07-11 06:42 | CON ---
DATE: UROLOGY CONSULTATION REASON FOR CONSULTATION: Severe renal colic. HISTORY OF PRESENT ILLNESS: A very pleasant lady who presented here with severe renal colic and has been found to have a kidney stone with hydronephrosis and flank pain and it has been going on for a while. See the plans listed below. Consult was to bring her to the operating room for emergency cystoscopy. PAST MEDICAL AND SURGICAL HISTORY: Known history of an OR and CVA. Reasonably healthy otherwise. SOCIAL HISTORY: She is here with her daughter, who provides translation as well. MEDICATIONS: See chart. ALLERGIES: NO ALLERGIES. REVIEW OF SYSTEMS: No weight loss, chest pain, shortness of breath or the like. The only problem is ongoing medical issue right now with the stone, pain and colic. PHYSICAL EXAMINATION: GENERAL: A well nourished female. She is currently resting actually fairly uncomfortable in the stretcher with a grimace on her face. VITAL SIGNS: Within normal limits. LUNGS: Clear. HEART: Normal S1 and S2. ABDOMEN: Soft and nontender. PELVIS: No pelvic or rectal masses. LABORATORY DATA: Listed on the chart. DIAGNOSES: Urolithiasis with hydronephrosis and flank pain. The patient reports that this is not getting better. We discussed options, observation, pain medication, hydration. As option one, we discussed cystoscopy and stenting. PLAN: As follows: 1. Antibiotic prophylaxis. 2. Cystoscopy. 3. Retrograde pyelogram. 4. Possibly treating the stone as depending on the stone's location and how the patient is doing. 5. We will discuss further plans to follow. I discussed with the patient most likely I am just going to be placing a stent, not removing the stone and then we will discuss as well proceeding with ureteroscopy and laser lithotripsy depending on the patient. So the plan is as follows; the patient is going to the OR for a relative emergent surgery and then further plans as outlined. Brody Hines MD
== END 2017-06-13 17:45 | disposition home or self-care (01) | DRG 584 ==
LOC: C.ER 12:13 → C.9E 16:37 → C.9I 18:09 → C.3T 06-09 19:18
PROVIDERS: ADMIT Family Medicine; ATTEND Family Medicine
PROC: BT1FZZZ Fluoroscopy of Left Kidney, Ureter and Bladder (ICD-10-PCS; 2017-06-07)
PROC: 0T778DZ Dilation of Left Ureter with Intraluminal Device, Via Natural or Artificial Opening Endoscopic (ICD-10-PCS; principal; 2017-06-07 20:00)
DX: A41.51 Sepsis due to Escherichia coli [E. coli] (principal); R65.21 Severe sepsis with septic shock; N13.2 Hydronephrosis with renal and ureteral calculous obstruction; N39.0 Urinary tract infection, site not specified; E83.42 Hypomagnesemia; E83.39 Other disorders of phosphorus metabolism; K76.0 Fatty (change of) liver, not elsewhere classified; D50.9 Iron deficiency anemia, unspecified; D72.819 Decreased white blood cell count, unspecified; K57.90 Diverticulosis of intestine, part unspecified, without perforation or abscess without bleeding; N39.41 Urge incontinence; Z87.442 Personal history of urinary calculi

== ENCOUNTER 2017-06-16 10:18 | Emergency (ER) | payer OTHER ==
[2017-06-16 10:18] VITALS: BMI 23.1
[2017-06-16 10:27] VITALS: RESP 18; TEMP 97.7; O2SAT 99
[2017-06-16 11:16] LABS: RBC URINE 278 /hpf (0-3); URINE BACTERIA RARE (<OCC); URINE BILIRUBIN NEGATIVE (NEGATIVE); URINE BLOOD 2+ (NEGATIVE); URINE COLOR Yellow (YELLOW); URINE GLUCOSE (UA) NORMAL (Normal); URINE KETONE NEGATIVE (NEGATIVE); URINE LEUKOCYTE ESTERASE 1+ Leu/uL (Negative); URINE PROTEIN 2+ mg/dL (NEGATIVE); URINE UROBILINOGEN NORMAL mg/dL (0.2-1.0); WBC URINE 24 /hpf (0-5)
--- NOTE | 2017-06-16 12:44 | C.PDOC ---
History Of Present Illness 52 y/o female, with no significant PMHx, presents to the ED for evaluation of pelvic discomfort which began a few days ago. Patient recently underwent a procedure with Dr. Deejay Hines for renal colic, obstructive stone, and an infection. Patient was discharged on 06/13 and recently followed up with Dr. Hines to have stent removal. Patient now reports pelvic discomfort associated with small amount of bloody vaginal discharge. She denies fever, chills, abdominal pain, back pain. Time Seen by Provider: 06/16/17 11:17 Chief Complaint (Nursing): Female Genitourinary History Per: Patient History/Exam Limitations: no limitations Onset/Duration Of Symptoms: Days Current Symptoms Are (Timing): Still Present Quality Of Discomfort: "Pain" Associated Symptoms: denies: Fever, Chills Additional History Per: Patient Abnormal Vaginal Bleeding: No Past Medical History Reviewed: Historical Data, Nursing Documentation, Vital Signs Vital Signs: Last Vital Signs Temp 97.7 F 06/16/17 10:25 Pulse 77 06/16/17 13:11 Resp 18 06/16/17 13:11 BP 111/75 06/16/17 13:11 Pulse Ox 99 06/16/17 13:36 - Medical History PMH: Kidney Stones (nephrolithiasis 15yrs ago) Surgical History: No Surg Hx - [facility] Procedures DILATION OF LEFT URETER WITH INTRALUMINAL DEVICE, ENDO (06/07/17) Family History: States: Unknown Family Hx - Social History Hx Alcohol Use: No Hx Substance Use: No - Immunization History Hx Tetanus Toxoid Vaccination: No Hx Influenza Vaccination: No Hx Pneumococcal Vaccination: No Review Of Systems Constitutional: Negative for: Fever, Chills Gastrointestinal: Negative for: Abdominal Pain Genitourinary: Positive for: Vaginal Discharge (bloody, small amount ), Pelvic Pain (discomfort ) Musculoskeletal: Negative for: Back Pain Physical Exam - Physical Exam Appears: Non-toxic, No Acute Distress Skin: Normal Color, Warm, Dry Head: Atraumatic, Normacephalic Eye(s): bilateral: Normal Inspection Oral Mucosa: Moist Neck: Supple Chest: Symmetrical, No Deformity, No Tenderness Cardiovascular: Rhythm Regular, No Murmur Respiratory: Normal Breath Sounds, No Rales, No Rhonchi, No Wheezing Gastrointestinal/Abdominal: Soft, No Tenderness, No Guarding, No Rebound Pelvic: Other (discomfort ) Extremity: Normal ROM, Capillary Refill (less than 2 seconds ) Neurological/Psych: Oriented x3, Normal Speech, Normal Cognition Gait: Steady ED Course And Treatment O2 Sat by Pulse Oximetry: 99 (on RA) Pulse Ox Interpretation: Normal Medical Decision Making Medical Decision Making: Impression: 52 y/o female with pelvic discomfort, small amount of bloody vaginal discharge Plan: * Urinalysis * reassess and disposition Progress: UA ordered and reviewed. Discussed with Dr. Harman Hines, request patient f/u in the office tomorrow morning. Disposition Discussed With Dr.: Deejay Hines Doctor Will See Patient In The: Office Counseled Patient/Family Regarding: Diagnosis, Need For Followup, Rx Given - Disposition Referrals: Deejay Hines MD [Staff Provider] - Disposition: HOME/ ROUTINE Disposition Time: 13:01 Condition: STABLE Instructions: Kidney Stones (ED) Forms: Gen Discharge Inst Afghan - POA Present On Arrival: None - Clinical Impression Clinical Impression: Ureterolithiasis, Pyelonephritis - Scribe Statement The provider has reviewed the documentation as recorded by the Scribe (Sumi Livingston) Provider Attestation: All medical record entries made by the Scribe were at my direction and personally dictated by me. I have reviewed the chart and agree that the record accurately reflects my personal performance of the history, physical exam, medical decision making, and the department course for this patient. I have also personally directed, reviewed, and agree with the discharge instructions and disposition.
[2017-06-16 13:12] VITALS: BP 111/75; PULSE 77
== END 2017-06-16 13:12 | disposition home or self-care (01) ==
LOC: C.ER 10:18
DX: N20.1 Calculus of ureter (principal); N12 Tubulo-interstitial nephritis, not specified as acute or chronic; Z87.442 Personal history of urinary calculi

== ENCOUNTER 2017-06-20 11:02 | Day surgery (SDC) | payer OTHER ==
[2017-06-20 11:03] VITALS: BMI 23.1
--- NOTE | 2017-06-20 13:33 | C.PDOC ---
History Of Present Illness 52 y/o female presents to ED with complaints of pelvic pain and difficulty urinating for 2 days. Notes some comes out and feels like there is still more. Patient had a stent placed and was discharged on 06/13/17 from hospital and had the symptoms ever since. Patient pain has been persistent and is requesting stent to be removed. Patient reports left sided back pain, scant blood with vaginal discharge. Denies fever, nausea, vomiting or any other complaints at this time. Time Seen by Provider: 06/20/17 12:13 Chief Complaint (Nursing): Abdominal Pain History Per: Patient History/Exam Limitations: no limitations Onset/Duration Of Symptoms: Days Current Symptoms Are (Timing): Still Present Severity: None Location Of Pain/Discomfort: Suprapubic Past Medical History Reviewed: Historical Data, Nursing Documentation, Vital Signs Vital Signs: Last Vital Signs Temp 97.9 F 06/20/17 11:30 Pulse 83 06/20/17 11:30 Resp 20 06/20/17 11:30 BP 130/80 06/20/17 11:30 Pulse Ox 99 06/20/17 13:50 - Medical History PMH: Kidney Stones (nephrolithiasis 15yrs ago) Surgical History: No Surg Hx - [facility] Procedures DILATION OF LEFT URETER WITH INTRALUMINAL DEVICE, ENDO (06/07/17) Family History: States: No Known Family Hx - Social History Hx Alcohol Use: No Hx Substance Use: No - Immunization History Hx Tetanus Toxoid Vaccination: No Hx Influenza Vaccination: No Hx Pneumococcal Vaccination: No Review Of Systems Except As Marked, All Systems Reviewed And Found Negative. Constitutional: Negative for: Fever, Chills Gastrointestinal: Negative for: Nausea, Vomiting Genitourinary: Positive for: Pelvic Pain. Negative for: Dysuria, Frequency, Hematuria Musculoskeletal: Positive for: Back Pain Skin: Negative for: Rash Physical Exam - Physical Exam Appears: Non-toxic, No Acute Distress Skin: Normal Color, Warm, Dry, No Rash Head: Atraumatic, Normacephalic Eye(s): bilateral: Normal Inspection, EOMI Nose: Normal Oral Mucosa: Moist Neck: Normal ROM, Supple Chest: Symmetrical Cardiovascular: Rhythm Regular, No Murmur Respiratory: Normal Breath Sounds, No Rales, No Rhonchi, No Wheezing Gastrointestinal/Abdominal: Soft, Tenderness (suprapubic ), No Guarding, No Rebound Back: No CVA Tenderness, Other (Left paralumbar tenderness) Extremity: Normal ROM, Capillary Refill (<2 seconds) Neurological/Psych: Oriented x3, Normal Speech, Normal Cognition ED Course And Treatment - Laboratory Results Result Diagrams: 06/20/17 13:38 06/20/17 13:38 O2 Sat by Pulse Oximetry: 99 (RA) Pulse Ox Interpretation: Normal Progress Note: UA, Blood work, Toradol. Case discussed with Dr Santoyo, agreed uppn plan and admission. Disposition - Disposition Disposition: HOSPITALIZED Disposition Time: 16:49 Condition: STABLE - Clinical Impression Clinical Impression: UTI (urinary tract infection), Nephrolithiasis - Scribe Statement The provider has reviewed the documentation as recorded by the Scribe Jarad Mauricio All medical record entries made by the Rejiibariane were at my direction and personally dictated by me. I have reviewed the chart and agree that the record accurately reflects my personal performance of the history, physical exam, medical decision making, and the department course for this patient. I have also personally directed, reviewed, and agree with the discharge instructions and disposition.
[2017-06-20 13:41] LABS: BASO # 0.1 K/uL (0.0-0.2); BASO % 0.9 % (0.0-2.0); EOS # 0.5 K/uL (0.0-0.7); EOS % 6.7 % (0.0-4.0); HEMATOCRIT 34.4 % (34.0-47.0); LYMPH # 2.2 K/uL (1.0-4.3); LYMPH % 30.3 % (20.0-40.0); MEAN CELL VOLUME 80.9 fL (81.0-99.0); MEAN CORPUSCULAR HEMOGLOBIN 26.9 pg (27.0-31.0); MEAN CORPUSCULAR HGB CONC 33.3 g/dL (33.0-37.0); MEAN PLATELET VOLUME 7.9 fL (7.2-11.7); MONO # 0.5 K/uL (0.0-0.8); MONO % 7.3 % (0.0-10.0); RED CELL DISTRIBUTION WIDTH 18.4 % (11.5-14.5); WHITE BLOOD COUNT 7.2 K/uL (4.8-10.8)
[2017-06-20 13:57] LABS: ALB/GLOB RATIO 1.1 (1.0-2.1); ALKALINE PHOSPHATASE 90 U/L (38-126); ALT/SGPT 62 U/L (9-52); AST/SGOT 44 U/L (14-36); BILIRUBIN,TOTAL 0.6 mg/dL (0.2-1.3); BLOOD UREA NITROGEN 9 mg/dL (7-17); CALCIUM 9.2 mg/dl (8.6-10.4); CARBON DIOXIDE 25 mmol/L (22-30); CHLORIDE 100 mmol/L (98-107); GFR AFRICAN-AMERICAN > 60; GLUCOSE,RANDOM 73 mg/dL (65-105); POTASSIUM 4.1 mmol/L (3.6-5.2); SODIUM 138 mmol/L (132-148); TOTAL PROTEIN 7.7 g/dL (6.3-8.3)
[2017-06-20 14:07] LABS: RBC URINE 53 /hpf (0-3); URINE BILIRUBIN NEGATIVE (NEGATIVE); URINE BLOOD 3+ (NEGATIVE); URINE COLOR Yellow (YELLOW); URINE GLUCOSE (UA) NORMAL (Normal); URINE KETONE NEGATIVE (NEGATIVE); URINE LEUKOCYTE ESTERASE 3+ Leu/uL (Negative); URINE PROTEIN NEGATIVE (NEGATIVE); URINE UROBILINOGEN NORMAL mg/dL (0.2-1.0); WBC URINE 25 /hpf (0-5)
[2017-06-20] MEDS ORDERED: cefTRIAXone IV 1 gm in Dextros 50 ML IVPB ONE (15:54)
[2017-06-20] MEDS ORDERED: Iohexol 240 (50 ml) ONE (15:54)
[2017-06-20] MEDS ORDERED: Lactated Ringer's 1,000 ML IV ONE (16:00)
[2017-06-20] MEDS ORDERED: Propofol 10 mg/ml Inj (20 ML) ONE (16:02)
[2017-06-20] MEDS ORDERED: Lidocaine Hydrochloride 5 ML INJ ONE (16:02)
[2017-06-20] MEDS ORDERED: HYDROmorphone 0.5 mg/0.5 ml ISec IVP PRN (16:39)
[2017-06-20 17:57] VITALS: RESP 16
[2017-06-20 18:40] VITALS: BP 108/60; PULSE 64; TEMP 97.6; O2SAT 99
--- NOTE | 2017-06-21 15:33 | RAD ---
PROCEDURE: HISTORY: For left stent removal COMPARISON: None TECHNIQUE: Total fluoroscopic time utilized during the procedure: 3.9 seconds. Total dose 0.97714 mGy cm squared FINDINGS: Submitted images from the current procedure: 3 please refer to the physician's notes performing the procedure. IMPRESSION: Less than 1 hour fluoroscopic time utilized during performance of the procedure
--- NOTE | 2017-07-11 01:42 | OP ---
UROLOGY OPERATIVE REPORT PROCEDURE DATE: 06/20/2017 PREOPERATIVE DIAGNOSES: Urolithiasis, hematuria, hydronephrosis, and flank pain. POSTOPERATIVE DIAGNOSES: Urolithiasis, hematuria, hydronephrosis, and flank pain. PROCEDURE: Cystoscopy, removal of a double J-stent, and left ureteroscopy. SURGEON: Deejay Hines MD FINDINGS: There is no stone currently between the ureter and the bladder. ESTIMATED BLOOD LOSS: Less than 10 mL. COMPLICATIONS: There were no complications. INDICATION FOR PROCEDURE: See the history and physical and see the previous consultation and operative reports, and previous history and physical. About two weeks ago, we brought the patient to the hospital. The patient was admitted to the hospital for an emergency where she had a cystoscopy and a stent insertion for her renal colic pain. Subsequently, her back felt better. The stent was bothering her, but her back was feeling better. We have discussed the options with the patient and we discussed risks, benefits, and alternatives and at that time we placed the stent. Since then, the patient has been in the office to do a workup a couple of times and she is here now for ureteroscopy and a laser lithotripsy if the stone is there. It turns out we did not find a stone, again originally even though it was a pretty small stone and I had offered the patient the option for passing the stone. It turns out that she was having discomfort and wanted a stent and then actually she felt better with the stent, though I suspect that at this point she has passed the stone by herself. (I did discuss with the patient before the possibility for having the stone being placed back up in the kidney) and discussed various options, but again I explained that today we are going to look at the ureter, which is where we did ureteroscopy, but not chased it up in the kidney, that will cause more inflammation and bleeding, etc., and then see how the patient does clinically. DESCRIPTION OF PROCEDURE: After obtaining informed consent, the patient was placed on the table, routine monitors were placed, time-out was called to confirm the patient and positioning. We introduced the cystoscope via the urethra, we identified the ureteral stent. We removed it and put a wire up to the kidney, then we went with the flexible ureteroscope. I took multiple pictures. The entire procedure was done with the camera and also fluoroscopy, we were all the way nicely up to the kidney and went up and down the ureter without difficult very easily and I do not see any stones along the wire. I then removed the wire. The patient tolerated the procedure well without complication. ADDENDUM: I just want to mention that subsequently the plan is to discharge home. The patient subsequently went home. I spoke to the daughter several times. The patient did well. There is no residual pain or problems. Brody Hines MD
== END 2017-06-20 18:35 | disposition home or self-care (01) ==
LOC: C.ER 11:02 → C.SDS 14:20
PROVIDERS: ATTEND Urology
DX: N13.2 Hydronephrosis with renal and ureteral calculous obstruction (principal); N39.0 Urinary tract infection, site not specified; N89.8 Other specified noninflammatory disorders of vagina; R31.9 Hematuria, unspecified
CPT/HCPCS: 52310; 80053; 81001; 83690; 84703; 85025; 87086; 96374; 99285; J0696; J1885; J7120